=== PATIENT | male | born 1980 | race Two or more races ===

== ENCOUNTER → 2020-05-04 11:29 | Outpatient (BNVA) | payer OTHER, SELFPAY | PROVIDERS: PCP Internal Medicine; Visit Provider Internal Medicine | DX: F11.20 Opioid dependence, uncomplicated (principal) | CPT/HCPCS: 80305; 99212 ==

== ENCOUNTER → 2020-05-11 15:03 | Outpatient (BNVA) | payer OTHER, SELFPAY | PROVIDERS: PCP Internal Medicine; Visit Provider Internal Medicine | DX: F11.99 Opioid use, unspecified with unspecified opioid-induced disorder (principal); Z88.8 Allergy status to other drugs, medicaments and biological substances; Z79.899 Other long term (current) drug therapy | CPT/HCPCS: 80305; 99212 ==

== ENCOUNTER 2020-05-14 08:27 | Inpatient (IN) | payer OTHER, SELFPAY ==
[2020-05-14] VITALS (9 sets, daily range): BP systolic 114–156; BP diastolic 66–104; PULSE 79–120; RESP 18–40; TEMP 36.2–36.6; O2SAT 76–100; BMI 42.0
[2020-05-14] MEDS: Ketamine HCl 500 MG/5 ML VIAL 100 MG IM (08:30)
--- NOTE | 2020-05-14 08:33 | ECG_ITS ---
Test Reason : SOB Blood Pressure : / mmHG Vent. Rate : 113 BPM Atrial Rate : 113 BPM P-R Int : 128 ms QRS Dur : 090 ms QT Int : 356 ms P-R-T Axes : 076 064 062 degrees QTc Int : 488 ms Sinus tachycardia Otherwise normal ECG When compared with ECG of 11-JUL-2019 11:28, Heart rate has increased Referred By: Tianna Curtis Electronically Signed By:DONAVAN FARIA MD
--- NOTE | 2020-05-14 08:33 | ED.ASTHMA ---
HPI - Asthma General Chief Complaint: Asthma Stated Complaint: sob Time Seen by Provider: 05/14/20 08:33 Source: patient and EMS Mode of arrival: EMS Limitations: other (respiratory distress) History of Present Illness HPI Narrative: EMS notes sats in 70s on CPAP agitated and cannot tolerate CPAP MD complaint: asthma attack Onset (ago): unknown Severity: severe Context: none known Associated symptoms: dry cough Asthma History: adult onset and history of frequent attacks Treatments Prior to Arrival: CPAP Related Data Home Medications Medication Instructions Recorded Confirmed buprenorphine 8 mg-naloxone 2 mg 2 film SUBLINGUAL DAILY 05/11/20 05/14/20 sublingual film benralizumab [Fasenra] 30 mg SUBCUT Q4W 05/14/20 05/14/20 fluticasone propion-salmeterol 1 inh PO BID 05/14/20 05/14/20 ipratropium-albuterol 1 vial INHALATION Q6H PRN 05/14/20 05/14/20 montelukast 1 tab PO DAILY 05/14/20 05/14/20 Previous Rx's Medication Instructions Recorded albuterol sulfate 90 mcg/actuation 2 puff INHALATION Q6H PRN #8.5 g 04/27/20 aerosol inhaler buprenorphine 8 mg-naloxone 2 mg 2 film SUBLINGUAL DAILY 14 Days 05/11/20 sublingual film #28 ea Allergies Allergy/AdvReac Type Severity Reaction Status Date / Time metoclopramide [Reglan] Allergy Unknown Verified 02/18/20 00:00 metronidazole [From FLAGYL] Allergy Unknown UNKNOWN Unverified 03/25/20 17:21 haloperidol [From HALDOL] AdvReac Severe Tardive Unverified 03/25/20 17:21 Diskinesia prochlorperazine AdvReac Severe Tardive Unverified 03/25/20 17:21 [From COMPAZINE] Diskinesia Compazine Allergy Unknown Uncoded 01/06/20 00:00 From REGLAN AdvReac Intermediate ANXIETY Uncoded 03/25/20 17:21 Review of Systems Review of Systems: ROS unable to be obtained due to significant resp distress PMFSH Past Medical History Medical History (Updated 05/14/20 @ 11:21 by Tianna Curtis DO) Asthma GERD (gastroesophageal reflux disease) HTN (hypertension) Opioid use disorder Pancreatitis Social History Social History (Updated 05/14/20 @ 08:38 by Tianna Curtis DO) Alcohol intake: never Smoking Status: Former smoker Use of substances other than those prescribed or required for medical reasons: Unknown Advance Directives: No Advance Directives Information Provided: No Physical Exam Vital Signs: Vital Signs: Last Vital Signs Pulse 109 H 05/14/20 10:14 Resp 20 05/14/20 10:14 BP 156/99 H 05/14/20 10:14 Pulse Ox 100 05/14/20 10:14 Body Mass Index 42.0 Appearance: Alert. oriented x 2 severe acute distress. Eyes: Pupils equal, round and reactive to light. ENT: Pharynx normal. Neck: Normal inspection. Neck supple. CVS: tachycardic heart rate and rhythm. Pulses normal. Respiratory: severe respiratory distress. Breath sounds decreased sig exp and insp wheezes Abdomen: Soft and nontender. Skin: Skin warm and diaphoretic. mild central cyanosis (lips) Normal skin turgor. Extremities: No lower extremity edema. No calf ttp Neuro: Oriented X 2. No motor deficit. No sensory deficit. Course Course Course Narrative: 98% on bipap at this time - overally work of breathing improved, tolerating bipap WBC chronically elevated and not due to infection or severe sepsis patient doing well on bipap, will repeat hour long 10mg neb, mentation good at this time, 98% on Bipap, will repeat VBG off bipap at this time RAN due to dehydration and not infection or severe sepsis Procedures EJ/Peripheral Line Neck L: Time Out Performed: Yes Skin Cleansed in Sterile Fashion: Yes Size (gauge): 20 IV Secured and Dressing Applied: Yes Patient Tolerated Procedure: well MDM - Asthma MDM Narrative Medical decision making narrative: 39 yo male with sig history of asthma here in sig respiratory distress - agitated on arrival and 75% on EMS CPAP - given IM ketamine, placed on bipap, hour long 10mg neb, IV steroids/magnesium, no reported infections, bipap used for asthma and not infection or severe sepsis. Lab Data Result diagrams: 05/14/20 08:38 05/14/20 09:37 Labs: Lab Results 05/14/20 05/14/20 05/14/20 Range/Units 08:38 08:38 08:38 WBC 16.2 H (4.8-10.8) X10*3/uL RBC 4.91 (4.60-5.80) X10*6/uL Hgb 14.1 (14.0-18.0) g/dl Hct 45.9 (42-52) % MCV 93.5 (80-98) fL MCH 28.7 (27.0-33.0) pg MCHC 30.7 L (31.0-36.0) g/dl RDW 13.8 (11.0-16.0) % Plt Count 454 H (160-400) X10*3/uL MPV 9.6 (9.4-12.4) fL Immature Gran % (Auto) Cancelled Neut % (Auto) Cancelled Lymph % (Auto) Cancelled [place] % (Auto) Cancelled Eos % (Auto) Cancelled Baso % (Auto) Cancelled Lymph # (Auto) Cancelled [place] # (Auto) Cancelled Eos # (Auto) Cancelled Baso # (Auto) Cancelled Abs Immat Gran (auto) Cancelled Absolute Neuts (auto) Cancelled Absolute Nucleated RBC 0.000 (0.0-0.012) X10*3/uL Nucleated RBC % (auto) 0.0 (0.0-0.2) /100WBC Neutrophils % (Manual) 48 (45-73) % Band Neutrophils % 1 L (3-5) % Lymphocytes % (Manual) 37 (20-40) % Atypical Lymphs % (Man) 2 (0-6) % Monocytes % (Manual) 7 (2-11) % Eosinophils % (Manual) 4 (0-4) % Basophils % (Manual) 1 (0-1) % Abs Neuts (Manual) 7.9 (2.2-7.9) X10*3/uL Lymphocytes # (Manual) 6.0 H (0.6-4.8) X10*3/uL Atyp Lymphs # (Manual) 0.3 x10*3/uL Monocytes # (Manual) 1.1 (0.0-1.2) X10*3/uL Eosinophils # (Manual) 0.6 (0.0-0.8) X10*3/UL Basophils # (Manual) 0.2 (0.0-0.3) X10*3/uL Platelet Estimate SLIGHTLY INCREASED (NORMAL) Plt Morphology Comment NORMAL RBC Morphology NORMAL Smear Tech's Comments MANUAL DIFF Hold Blue Top SEE NOTE VBG pH (7.32-7.43) VBG pCO2 mmhg VBG Oxygen Liters/Min VBG pO2 mmhg VBG HCO3 mmol/L VBG O2 Saturation % VBG Base Excess mmol/L Sodium Cancelled Potassium Cancelled Chloride Cancelled Carbon Dioxide Cancelled Anion Gap Cancelled BUN Cancelled Creatinine Cancelled Estim Creat Clear Calc Cancelled Estimated GFR Cancelled Random Glucose Cancelled Calcium Cancelled Magnesium Cancelled Total Bilirubin Cancelled Direct Bilirubin Cancelled AST Cancelled ALT Cancelled Alkaline Phosphatase Cancelled Total Protein Cancelled Albumin Cancelled Coronavirus (PCR) (Negative) 05/14/20 05/14/20 05/14/20 Range/Units 08:38 08:43 09:37 WBC (4.8-10.8) X10*3/uL RBC (4.60-5.80) X10*6/uL Hgb (14.0-18.0) g/dl Hct (42-52) % MCV (80-98) fL MCH (27.0-33.0) pg MCHC (31.0-36.0) g/dl RDW (11.0-16.0) % Plt Count (160-400) X10*3/uL MPV (9.4-12.4) fL Immature Gran % (Auto) Neut % (Auto) Lymph % (Auto) [place] % (Auto) Eos % (Auto) Baso % (Auto) Lymph # (Auto) [place] # (Auto) Eos # (Auto) Baso # (Auto) Abs Immat Gran (auto) Absolute Neuts (auto) Absolute Nucleated RBC (0.0-0.012) X10*3/uL Nucleated RBC % (auto) (0.0-0.2) /100WBC Neutrophils % (Manual) (45-73) % Band Neutrophils % (3-5) % Lymphocytes % (Manual) (20-40) % Atypical Lymphs % (Man) (0-6) % Monocytes % (Manual) (2-11) % Eosinophils % (Manual) (0-4) % Basophils % (Manual) (0-1) % Abs Neuts (Manual) (2.2-7.9) X10*3/uL Lymphocytes # (Manual) (0.6-4.8) X10*3/uL Atyp Lymphs # (Manual) x10*3/uL Monocytes # (Manual) (0.0-1.2) X10*3/uL Eosinophils # (Manual) (0.0-0.8) X10*3/UL Basophils # (Manual) (0.0-0.3) X10*3/uL Platelet Estimate (NORMAL) Plt Morphology Comment RBC Morphology Smear Tech's Comments Hold Blue Top VBG pH 7.21 L (7.32-7.43) VBG pCO2 79 mmhg VBG Oxygen Liters/Min Not Reportable VBG pO2 143 mmhg VBG HCO3 31 mmol/L VBG O2 Saturation 98.5 % VBG Base Excess 0.5 mmol/L Sodium 143 Potassium 3.9 Chloride 104 Carbon Dioxide 31 H Anion Gap 12 BUN 18 H Creatinine 1.42 H Estim Creat Clear Calc 96.7 Estimated GFR 56 Random Glucose 140 H Calcium 8.1 L Magnesium 5.8 H* Total Bilirubin < 0.2 Direct Bilirubin < 0.2 AST 23 ALT 20 Alkaline Phosphatase 89 Total Protein 7.2 Albumin 3.9 Coronavirus (PCR) NEGATIVE (Negative) ECG Data Attestation: I personally reviewed and interpreted this ECG as follows: ECG interpretation date: 05/14/20 ECG interpretation time: 09:09 Interpretation: Rate: 113 Rhythm: sinus tachycardia [place]: normal Normal P waves. Normal JEANNE. Normal QRS complex. ST T wave : normal qTC: normal prior studies: artifact no acute ischemia The study has been interpreted contemporaneously by me. . Critical Care Time Critical Care Time Critical Care Time: Yes Total Critical Care Time: 90 Attestation: 2 hour long nebs, bipap, EJ line, IM ketamine for bronchodilation/bipap I attest to this time spent taking care of the patient Discharge Plan Discharge Clinical Impression: Asthma, Respiratory failure, Acute renal insufficiency Patient Disposition: Admitted As Inpatient Prescriptions: No Action albuterol sulfate 90 mcg/actuation HFA aerosol inhaler 2 puff inhalation Q6H PRN (Reason: shortness of breath or wheezing) Qty: 8.5 RF: 5 ipratropium-albuterol 0.5 mg-3 mg(2.5 mg base)/3 mL solution for nebulization 1 vial inhalation Q6H PRN (Reason: Shortness Of Breath) RF: 0 montelukast 10 mg tablet 1 tab PO DAILY RF: 0 fluticasone propion-salmeterol 113-14 mcg/actuation aerosol powdr breath activated 1 inh PO BID RF: 0 Fasenra 30 mg/mL syringe 30 mg subcut Q4W RF: 0 buprenorphine-naloxone [Suboxone] 8-2 mg film 2 film sublingual DAILY RF: 0 buprenorphine-naloxone [Suboxone] 8-2 mg film 2 film sublingual DAILY 14 Days Qty: 28 RF: 0
--- NOTE | 2020-05-14 08:34 | XR_ITS ---
EXAMINATION: XR CHEST CLINICAL INFORMATION: Dyspnea. COMPARISON: 07/11/2019 chest radiograph. TECHNIQUE: Frontal view of the chest was obtained. FINDINGS: The lungs are clear. The heart and mediastinal structures are unremarkable. XR/XR chest 1V IMPRESSION: No acute cardiopulmonary process.
[2020-05-14] MEDS: methylPREDNISolone Sod Succ/PF 125 MG/2 ML VIAL IVPUSH (08:35)
[2020-05-14] MEDS: Magnesium Sulfate/H2O 2 GM/50 ML PIGGYBACK IV (08:36)
[2020-05-14 08:47] LABS: Hematocrit 45.9 % (42-52); Hemoglobin 14.1 g/dl (14.0-18.0); Mean Corpuscular HGB Conc 30.7 g/dl (31.0-36.0); Mean Corpuscular Hemoglobin 28.7 pg (27.0-33.0); Mean Corpuscular Volume 93.5 fL (80-98); Mean Platelet Volume 9.6 fL (9.4-12.4); Platelet Count 454 X10*3/uL (160-400); Red Blood Count 4.91 X10*6/uL (4.60-5.80); Red Cell Distribution Width 13.8 % (11.0-16.0); White Blood Count 16.2 X10*3/uL (4.8-10.8)
--- NOTE | 2020-05-14 08:47 | PC.NURSE ---
iv placed by md harris. rt remains at bedside for treatment in bipap. o2 decresed to 50% pt tolerating bipap well.
[2020-05-14] MEDS: Albuterol Sulfate (0.083%) 2.5 MG/3 ML VIAL.NEB 10 MG INHALE ×2 (08:48→09:51)
[2020-05-14 08:53] LABS: Base Excess VBG 0.5 mmol/L; HCO3 VBG 31 mmol/L; PCO2 VBG 79 mmhg; PO2 VBG 143 mmhg; pH VBG 7.21 (7.32-7.43)
[2020-05-14 08:54] LABS: Blood Gas Serial # 5396; Oxygen Saturation VBG 98.5 %
[2020-05-14 09:12] LABS: SLIDE REVIEW MANUAL DIFF
[2020-05-14 09:16] LABS: Atypical Lymph Absolute Manual 0.3 x10*3/uL; Atypical Lymphs Percent Manual 2 % (0-6); Band Neutrophils Percent 1 % (3-5); Basophils Abs Manual 0.2 X10*3/uL (0.0-0.3); Basophils Percent Manual 1 % (0-1); Eosinophils Absolute Manual 0.6 X10*3/UL (0.0-0.8); Eosinophils Percent Manual 4 % (0-4); Lymphocytes Percent Manual 37 % (20-40); Monocytes Absolute Manual 1.1 X10*3/uL (0.0-1.2); Monocytes Percent Manual 7 % (2-11); Neutrophils Absolute Manual 7.9 X10*3/uL (2.2-7.9); Neutrophils Percent Manual 48 % (45-73)
[2020-05-14 09:18] LABS: Platelet Estimate SLIGHTLY INCREASED (NORMAL); Platelet Morphology Comment NORMAL; RBC Morphology NORMAL
--- NOTE | 2020-05-14 09:22 | PC.NURSE ---
recollect orders placed per lab
[2020-05-14 10:24] LABS: SARS COV2 PCR INHOUSE NEGATIVE (Negative)
[2020-05-14 10:46] LABS: Alanine Aminotransferase 20 U/L (0-40); Albumin Level 3.9 g/dL (3.5-5.0); Alkaline Phosphatase 89 U/L (39-117); Anion Gap 12 (12-20); Aspartate Amino Transferase 23 U/L (5-37); Bilirubin Direct < 0.2 mg/dL (0.0-0.5); Bilirubin Total < 0.2 mg/dL (0.0-1.0); Blood Urea Nitrogen 18 mg/dL (9-16); Calcium 8.1 mg/dL (8.4-10.2); Carbon Dioxide 31 mmol/L (22-29); Chloride 104 mmol/L (96-108); Creatinine Clr Calc Pharmacy 96.7; Estimated Glomerular Filt Rate 56; Glucose Random 140 mg/dL (60-115); Magnesium 5.8 mg/dL (1.6-2.6); Potassium 3.9 mmol/l (3.3-5.1); Sodium 143 mmol/L (135-145); Total Protein 7.2 g/dL (6.5-8.0)
[2020-05-14] MEDS: 0.9 % Sodium Chloride 1,000 ML 999 ML IVCONT (10:59)
[2020-05-14] MEDS: Albuterol Sulfate (0.083%) 2.5 MG/3 ML VIAL.NEB INHALE (11:22)
[2020-05-14 12:01] LABS: Base Excess VBG 1.6 mmol/L; HCO3 VBG 28 mmol/L; PCO2 VBG 51 mmhg; PO2 VBG 127 mmhg; pH VBG 7.36 (7.32-7.43)
[2020-05-14 12:02] LABS: Oxygen Saturation VBG 98.5 %
--- NOTE | 2020-05-14 12:23 | PM.IMHP ---
History of Present Illness Date of Service: 05/14/20 Chief Complaint: shortness of breath, respiratory distress a 39 years old male with PMH of asthma, opioid dependence on Suboxone, and anxiety among others who presented to the hospital with shortness of breath and low oxygen level. The patient reported that he has been feeling mildly winded and short of breath for the last 3-5 days prior to admission. He denies any fever, chills congestion but reports dry cough. He has been using his nebulizers for the last week with minimal effect. Last night he went to bed feeling short of breath and tired. He woke up early in the morning he CV stress difficulty breathing. His care EMS for evaluation and the patient was brought to the hospital for further treatment. In the emergency his chest x-ray did not show any acute illness. His oxygen level was found to be low and he was placed on BiPAP as ABG showed significant acidemia and hypercapnia. Repeated ABG showed significant improvement as the patient improved almost back to his baseline. Admitted for further evaluation treatment. Review of Systems Review of Systems: No fever, chills or weakness No chest pain, palpitation Shortness of breath, cough him to, difficulty breathing. No abdominal pain, nausea or vomiting No urinary symptoms No any rash or wounds [facility] Medical History (Updated 05/14/20 @ 12:31 by Taylor Priest MD) Asthma Asthma GERD (gastroesophageal reflux disease) HTN (hypertension) Opioid use disorder Pancreatitis Respiratory failure Social History (Updated 05/14/20 @ 08:38 by Tianna Curtis DO) Alcohol intake: never Smoking Status: Former smoker Use of substances other than those prescribed or required for medical reasons: Unknown Advance Directives: No Advance Directives Information Provided: No Meds Allergies Allergy/AdvReac Type Severity Reaction Status Date / Time metoclopramide [Reglan] Allergy Unknown Verified 02/18/20 00:00 metronidazole [From FLAGYL] Allergy Unknown UNKNOWN Unverified 03/25/20 17:21 haloperidol [From HALDOL] AdvReac Severe Tardive Unverified 03/25/20 17:21 Diskinesia prochlorperazine AdvReac Severe Tardive Unverified 03/25/20 17:21 [From COMPAZINE] Diskinesia Compazine Allergy Unknown Uncoded 01/06/20 00:00 From REGLAN AdvReac Intermediate ANXIETY Uncoded 03/25/20 17:21 Home Medications Medication Instructions Recorded Confirmed Type buprenorphine 8 mg-naloxone 2 mg 2 film SUBLINGUAL DAILY 05/11/20 05/14/20 History sublingual film benralizumab [Fasenra] 30 mg SUBCUT Q4W 05/14/20 05/14/20 History fluticasone propion-salmeterol 1 inh PO BID 05/14/20 05/14/20 History ipratropium-albuterol 1 vial INHALATION Q6H PRN 05/14/20 05/14/20 History montelukast 1 tab PO DAILY 05/14/20 05/14/20 History Physical Exam Vital Signs and Narrative: Vital Signs: Last Vital Signs Temp 97.9 F 05/14/20 11:21 Pulse 95 05/14/20 12:03 Resp 18 05/14/20 12:03 BP 129/104 H 05/14/20 11:21 Pulse Ox 95 05/14/20 12:03 Body Mass Index 42.0 Constitutional : Alert, oriented, not in distress Neck : Normal inspection, Supple Cardiovascular : RRR, S1 S2, no lower extremity edema Respiratory : Good bilateral air entry, no crackles, wheezes or rhonchi Gastrointestinal: soft, lax, Normal bowel sounds, Non tender Skin : Warm/Dry, No rash Neurological : Alert & oriented x3, No focal deficit Results Labs CBC and Chem 7: 05/14/20 08:38 05/14/20 09:37 Labs: Laboratory Results - last 24 hr 05/14/20 05/14/20 05/14/20 08:38 08:38 08:38 MCV 93.5 MCH 28.7 MCHC 30.7 L RDW 13.8 Plt Count 454 H MPV 9.6 Immature Gran % (Auto) Cancelled Neut % (Auto) Cancelled Lymph % (Auto) Cancelled [place] % (Auto) Cancelled Eos % (Auto) Cancelled Baso % (Auto) Cancelled Lymph # (Auto) Cancelled [place] # (Auto) Cancelled Eos # (Auto) Cancelled Baso # (Auto) Cancelled Abs Immat Gran (auto) Cancelled Absolute Neuts (auto) Cancelled Absolute Nucleated RBC 0.000 Nucleated RBC % (auto) 0.0 Neutrophils % (Manual) 48 Band Neutrophils % 1 L Lymphocytes % (Manual) 37 Atypical Lymphs % (Man) 2 Monocytes % (Manual) 7 Eosinophils % (Manual) 4 Basophils % (Manual) 1 Abs Neuts (Manual) 7.9 Lymphocytes # (Manual) 6.0 H Atyp Lymphs # (Manual) 0.3 Monocytes # (Manual) 1.1 Eosinophils # (Manual) 0.6 Basophils # (Manual) 0.2 Platelet Estimate SLIGHTLY INCREASED Plt Morphology Comment NORMAL RBC Morphology NORMAL Smear Tech's Comments MANUAL DIFF Hold Blue Top SEE NOTE ABG pH ABG pCO2 ABG pO2 ABG HCO3 ABG O2 Saturation ABG Base Excess VBG pH VBG pCO2 VBG Oxygen Liters/Min VBG pO2 VBG HCO3 VBG O2 Saturation VBG Base Excess Oxygen Given Anion Gap Cancelled Estim Creat Clear Calc Cancelled Estimated GFR Cancelled Random Glucose Cancelled Calcium Cancelled Magnesium Cancelled Total Bilirubin Cancelled Direct Bilirubin Cancelled AST Cancelled ALT Cancelled Alkaline Phosphatase Cancelled Total Protein Cancelled Albumin Cancelled Coronavirus (PCR) 05/14/20 05/14/20 05/14/20 08:38 08:43 09:37 MCV MCH MCHC RDW Plt Count MPV Immature Gran % (Auto) Neut % (Auto) Lymph % (Auto) [place] % (Auto) Eos % (Auto) Baso % (Auto) Lymph # (Auto) [place] # (Auto) Eos # (Auto) Baso # (Auto) Abs Immat Gran (auto) Absolute Neuts (auto) Absolute Nucleated RBC Nucleated RBC % (auto) Neutrophils % (Manual) Band Neutrophils % Lymphocytes % (Manual) Atypical Lymphs % (Man) Monocytes % (Manual) Eosinophils % (Manual) Basophils % (Manual) Abs Neuts (Manual) Lymphocytes # (Manual) Atyp Lymphs # (Manual) Monocytes # (Manual) Eosinophils # (Manual) Basophils # (Manual) Platelet Estimate Plt Morphology Comment RBC Morphology Smear Tech's Comments Hold Blue Top ABG pH ABG pCO2 ABG pO2 ABG HCO3 ABG O2 Saturation ABG Base Excess VBG pH 7.21 L VBG pCO2 79 VBG Oxygen Liters/Min Not Reportable VBG pO2 143 VBG HCO3 31 VBG O2 Saturation 98.5 VBG Base Excess 0.5 Oxygen Given Anion Gap 12 Estim Creat Clear Calc 96.7 Estimated GFR 56 Random Glucose 140 H Calcium 8.1 L Magnesium 5.8 H* Total Bilirubin < 0.2 Direct Bilirubin < 0.2 AST 23 ALT 20 Alkaline Phosphatase 89 Total Protein 7.2 Albumin 3.9 Coronavirus (PCR) NEGATIVE 05/14/20 05/14/20 11:15 11:44 MCV MCH MCHC RDW Plt Count MPV Immature Gran % (Auto) Neut % (Auto) Lymph % (Auto) [place] % (Auto) Eos % (Auto) Baso % (Auto) Lymph # (Auto) [place] # (Auto) Eos # (Auto) Baso # (Auto) Abs Immat Gran (auto) Absolute Neuts (auto) Absolute Nucleated RBC Nucleated RBC % (auto) Neutrophils % (Manual) Band Neutrophils % Lymphocytes % (Manual) Atypical Lymphs % (Man) Monocytes % (Manual) Eosinophils % (Manual) Basophils % (Manual) Abs Neuts (Manual) Lymphocytes # (Manual) Atyp Lymphs # (Manual) Monocytes # (Manual) Eosinophils # (Manual) Basophils # (Manual) Platelet Estimate Plt Morphology Comment RBC Morphology Smear Tech's Comments Hold Blue Top ABG pH Cancelled ABG pCO2 Cancelled ABG pO2 Cancelled ABG HCO3 Cancelled ABG O2 Saturation Cancelled ABG Base Excess Cancelled VBG pH 7.36 VBG pCO2 51 VBG Oxygen Liters/Min Not Reportable VBG pO2 127 VBG HCO3 28 VBG O2 Saturation 98.5 VBG Base Excess 1.6 Oxygen Given Cancelled Anion Gap Estim Creat Clear Calc Estimated GFR Random Glucose Calcium Magnesium Total Bilirubin Direct Bilirubin AST ALT Alkaline Phosphatase Total Protein Albumin Coronavirus (PCR) Imaging Radiologist's Impressions: Impressions Chest X-Ray 05/14/20 08:34 IMPRESSION: No acute cardiopulmonary process. Assessment and Plan (1) Asthma exacerbation: Status: Acute (2) Acute respiratory failure with hypoxia: Status: Acute (3) Hypermagnesemia: Status: Acute (4) Opioid use disorder: Status: Acute (5) Acute renal insufficiency: Status: Acute a 39 years old male with PMH of asthma, opioid dependence on Suboxone, and anxiety among others who presented to the hospital with shortness of breath and low oxygen level. acute hypoxic hypercapnic respiratory failure Asthma exacerbation CXR negative for any acute infiltrate ABG showed significant hypercapnia with acidemia Improved with BiPAP Continue steroid IV Continue nebulizers ATC and p.r.n. O2 supplement as needed Tested negative for COVID Acute kidney injury Creatinine of 1.46 from baseline of 0.9 Could be secondary to medication, dehydration, respiratory distress To give gentle hydration and monitor urine output Hypermagnesemia Likely a result of IV medications Continue to monitor Opioid use disorder continue Suboxone DVT PPX A early ambulation
--- NOTE | 2020-05-14 14:00 | PC.NURSE ---
called to [facility] – [place]
--- NOTE | 2020-05-14 14:22 | PC.NURSE ---
report given to [facility] [place]
[2020-05-14] MEDS: Albuterol/Iprat 2.5/0.5MG 3 ML AMPUL.NEB INHALE ×2 (15:14→21:38)
[2020-05-14] MEDS: 0.9 % Sodium Chloride Flush 3 ML SYRINGE IVFLUSH ×2 (16:56→20:07)
[2020-05-14] MEDS: Buprenorphine/Naloxone 8/2 mg FILM 2 FILM SUBLINGUAL (16:56)
[2020-05-14] MEDS: Flu Vacc QS2020-21(6mos up)/PF 0.5 ML SYRINGE IM (19:53)
[2020-05-15] VITALS: BP 120/77; PULSE 96; RESP 18; TEMP 36.4; O2SAT 93
[2020-05-15] MEDS: LORazepam 2 MG/ML VIAL 1 MG IVPUSH (00:13)
[2020-05-15] MEDS: Albuterol Sulfate (0.083%) 2.5 MG/3 ML VIAL.NEB INHALE (03:59)
[2020-05-15 04:00] VITALS: BP 144/83; PULSE 91; RESP 18; TEMP 36.4; O2SAT 96
[2020-05-15 07:19] LABS: Basophils Percent Auto 0.2 % (0-2); Hematocrit 40.2 % (42-52); Hemoglobin 12.7 g/dl (14.0-18.0); Imm Gran Abs Auto 0.24 X10*3/uL (0.00-0.03); Lymphocytes Absolute Auto 0.7 X10*3/uL (1.2-4.9); Lymphocytes Percent Auto 3.1 % (20-40); MANUAL DIFF FLAG SCAN; Mean Corpuscular HGB Conc 31.6 g/dl (31.0-36.0); Mean Corpuscular Hemoglobin 28.7 pg (27.0-33.0); Mean Platelet Volume 10.2 fL (9.4-12.4); Monocytes Absolute Auto 1.4 X10*3/uL (0.1-1.2); Monocytes Percent Auto 5.6 % (2-11); Neutrophils Absolute Auto 21.7 X10*3/uL (2.0-8.3); Neutrophils Percent Auto 90.1 % (45-73); Platelet Count 350 X10*3/uL (160-400); Red Blood Count 4.42 X10*6/uL (4.60-5.80); SCAN SMEAR FLAG 1; White Blood Count 24.1 X10*3/uL (4.8-10.8)
[2020-05-15 07:21] VITALS: BP 121/61; PULSE 86; RESP 18; TEMP 36.3; O2SAT 93
[2020-05-15 07:44] LABS: Anion Gap 12 (12-20); Blood Urea Nitrogen 15 mg/dL (9-16); Calcium 8.1 mg/dL (8.4-10.2); Carbon Dioxide 27 mmol/L (22-29); Chloride 104 mmol/L (96-108); Creatinine Clr Calc Pharmacy 156.1; Estimated Glomerular Filt Rate > 60; Glucose Random 107 mg/dL (60-115); Potassium 4.4 mmol/l (3.3-5.1); Sodium 139 mmol/L (135-145)
[2020-05-15 08:05] LABS: SLIDE REVIEW VERIFIED
[2020-05-15 08:12] LABS: Magnesium 2.1 mg/dL (1.6-2.6)
[2020-05-15] MEDS: Montelukast Sodium 10 MG TABLET PO (08:14)
[2020-05-15] MEDS: 0.9 % Sodium Chloride Flush 3 ML SYRINGE IVFLUSH (08:14)
[2020-05-15] MEDS: Buprenorphine/Naloxone 8/2 mg FILM 2 FILM SUBLINGUAL (08:14)
[2020-05-15] MEDS: Albuterol/Iprat 2.5/0.5MG 3 ML AMPUL.NEB INHALE ×2 (08:54→11:07)
--- NOTE | 2020-05-15 09:21 | MHC.CM.PN ---
Pt reports he resides with a disabled individual and is their [employer]. Pt reports he does not use an assistive device but does have a nebulizer. Pt reports he got the nebulizer at [facility] but it only worked for two weeks. Pt reports it makes noise but nothing comes out. Pt reports his PCP is Maxx Roberto and says he has an up to date HCP that should be on file. current DC plan is home with no services Pt to self arrange transport
[2020-05-15 11:05] VITALS: BP 141/71; PULSE 88; RESP 18; TEMP 36.6; O2SAT 94
--- NOTE | 2020-05-15 11:29 | MHC.CM.PN ---
Pt being discharged with no services pt can self arrange transport
--- NOTE | 2020-05-15 16:58 | PM.DS ---
DS: Providers Provider Date of admission: 05/14/20 12:20 Primary care physician: Unknown Physician DS: Diagnosis Discharge Diagnosis (1) Asthma exacerbation: Status: Acute (2) Acute respiratory failure with hypoxia: Status: Acute (3) Hypermagnesemia: Status: Acute (4) Opioid use disorder: Status: Acute (5) Acute renal insufficiency: Status: Acute DS: Summary Hospital Course Hospital Course: Admission note HPI a 39 years old male with PMH of asthma, opioid dependence on Suboxone, and anxiety among others who presented to the hospital with shortness of breath and low oxygen level. The patient reported that he has been feeling mildly winded and short of breath for the last 3-5 days prior to admission. He denies any fever, chills congestion but reports dry cough. He has been using his nebulizers for the last week with minimal effect. Last night he went to bed feeling short of breath and tired. He woke up early in the morning he CV stress difficulty breathing. His care EMS for evaluation and the patient was brought to the hospital for further treatment. In the emergency his chest x-ray did not show any acute illness. His oxygen level was found to be low and he was placed on BiPAP as ABG showed significant acidemia and hypercapnia. Repeated ABG showed significant improvement as the patient improved almost back to his baseline. Admitted for further evaluation treatment. Hospital course The patient admitted for acute hypoxic and hypercapnic respiratory failure secondary to asthma exacerbation . He was treated with BiPAP in the emergency with good response with repeated ABG showing clearance of hypercapnia and hypoxia. He was admitted to the hospital and treated with IV steroids, nebulizers and O2 supplement. He tested negative for COVID-19. His respiratory status improved significantly during the hospital stay and was able to ambulate freely on room air in the next morning. He has to be discharged home. He was discharged on his home medications, prednisone and cortisone inhaler. He was noted to have acute kidney injury as well with creatinine of almost 1.5 from baseline of 0.9. He was treated with gentle hydration with good response as kidney function improved back to baseline. Noticed to have hypermagnesemia of 5.5 which is likely secondary to medications. Repeated next morning Time Spent with Patient Time attestation: Total time spent providing and/or coordinating discharge services: Physical Exam Vital Signs: Vital Signs: Last Vital Signs Temp 97.8 F 05/15/20 11:05 Pulse 88 05/15/20 11:05 Resp 18 05/15/20 11:05 BP 141/71 H 05/15/20 11:05 Pulse Ox 94 05/15/20 11:05 Body Mass Index 42.0 Constitutional : Alert, oriented, not in distress Neck : Normal inspection, Supple Cardiovascular : RRR, S1 S2, no lower extremity edema Respiratory : Good bilateral air entry, no crackles, scattered wheezes , no rhonchi Gastrointestinal: soft, lax, Normal bowel sounds, Non tender Skin : Warm/Dry, No rash Neurological : Alert & oriented x3, No focal deficit DS: Data Data Completed and Pending Labs on day of discharge: 05/14/20 08:33 ECG 12 lead EKG Stat EKG Documentation DIRECTED Consult Rx Perform Med Rec 1 each MISCELLANE ONCE PRN Magnesium Sulfate/H2O 2 gm in 50 ml IV ONCE methylPREDNISolone Sod Succ/PF [SOLU-MedroL] 125 mg IVPUSH ONCE ONE 05/14/20 08:34 XR chest 1V Stat Ketamine HCl [Ketalar] 100 mg IM ONCE ONE 05/14/20 08:35 Albuterol Sulfate (0.083%) [Ventolin (0.083%)] 10 mg INHALE ONCE ONE 05/14/20 08:38 Complete Blood Count Man Dif Stat Hold Lt Blue - Possible Coag Stat SLIDE REVIEW Stat Venous Blood Gas Stat Albuterol/Iprat 2.5/0.5MG 3 ML [Duoneb] 3 ml INHALE .STK-MED ONE 05/14/20 08:43 SARS COV2 PCR INHOUSE Stat 05/14/20 09:22 Albuterol Sulfate (0.083%) [Ventolin (0.083%)] 10 mg INHALE ONCE ONE 05/14/20 09:37 BMP [Basic Metabolic Panel] Stat Liver Panel Stat Magnesium Stat 05/14/20 09:43 Magnesium Sulfate/H2O 2 gm IV .STK-MED ONE methylPREDNISolone Sod Succ/PF [SOLU-MedroL] 125 mg .ROUTE .STK-MED ONE 05/14/20 10:49 ABG (RT) ONCE 05/14/20 11:00 0.9 % Sodium Chloride [Ns] 1,000 ml IVCONT 999 mls/hr 05/14/20 11:18 Albuterol Sulfate (0.083%) [Ventolin (0.083%)] 2.5 mg INHALE ONCE ONE 05/14/20 11:44 Venous Blood Gas Stat 05/14/20 12:02 Code Status Routine Transfer Order Routine 05/14/20 13:25 Ketamine HCl/NS 100 mg IVPUSH .STK-MED ONE 05/14/20 14:02 Acetaminophen [Tylenol] 650 mg PO Q6H PRN Albuterol Sulfate (0.083%) [Ventolin (0.083%)] 2.5 mg INHALE Q2H PRN Buprenorphine/Naloxone 8/2 mg [Suboxone 8/2 mg] 2 film SUBLINGUAL DAILY 05/14/20 14:02 Ambulate QSHIFT WHILE AWAKE Cont. Telemetry w/Vital Sign limit Q4HR IV insert/maintain Q4HR Intake and Output QSHIFTE Pulse Oximetry Q4HR Supplemental oxygen titration NOW Vital Signs Q4HR 05/14/20 14:41 Transfer Order Routine 05/14/20 16:00 0.9 % Sodium Chloride Flush [NS Flush] 3 ml IVFLUSH QSHIFT Albuterol/Iprat 2.5/0.5MG 3 ML [Duoneb] 3 ml INHALE RQ4H WHILE AWAKE 05/14/20 18:33 Flu Vacc [id number](6mos up)/PF [Fluarix Quad [id number]] 0.5 ml IM .ONCE ONE 05/14/20 21:00 methylPREDNISolone Sod Succ/PF [SOLU-MedroL] 40 mg IVPUSH TID 05/14/20 23:51 LORazepam [Ativan] 1 mg IVPUSH ONCE ONE 05/15/20 06:50 Basic Metabolic Panel DAILY@0600 Complete Blood Count Auto Diff DAILY@0600 Magnesium Routine SLIDE REVIEW Routine 05/15/20 07:43 Add Laboratory Test Urgent 05/15/20 09:00 Montelukast Sodium [Singulair] 10 mg PO DAILY Laboratory Last Values WBC 24.1 X10*3/uL (4.8-10.8) H 05/15/20 06:50 RBC 4.42 X10*6/uL (4.60-5.80) L 05/15/20 06:50 Hgb 12.7 g/dl (14.0-18.0) L 05/15/20 06:50 Hct 40.2 % (42-52) L 05/15/20 06:50 MCV 91.0 fL (80-98) 05/15/20 06:50 MCH 28.7 pg (27.0-33.0) 05/15/20 06:50 MCHC 31.6 g/dl (31.0-36.0) 05/15/20 06:50 RDW 14.0 % (11.0-16.0) 05/15/20 06:50 Plt Count 350 X10*3/uL (160-400) 05/15/20 06:50 MPV 10.2 fL (9.4-12.4) 05/15/20 06:50 Immature Gran % (Auto) 1.0 % (0.0-0.4) H 05/15/20 06:50 Neut % (Auto) 90.1 % (45-73) H 05/15/20 06:50 Lymph % (Auto) 3.1 % (20-40) L 05/15/20 06:50 [place] % (Auto) 5.6 % (2-11) 05/15/20 06:50 Eos % (Auto) 0.0 % (0-4) 05/15/20 06:50 Baso % (Auto) 0.2 % (0-2) 05/15/20 06:50 Lymph # (Auto) 0.7 X10*3/uL (1.2-4.9) L 05/15/20 06:50 [place] # (Auto) 1.4 X10*3/uL (0.1-1.2) H 05/15/20 06:50 Eos # (Auto) 0.0 X10*3/uL (0.0-0.4) 05/15/20 06:50 Baso # (Auto) 0.0 X10*3/uL (0.0-0.2) 05/15/20 06:50 Abs Immat Gran (auto) 0.24 X10*3/uL (0.00-0.03) H 05/15/20 06:50 Absolute Neuts (auto) 21.7 X10*3/uL (2.0-8.3) H 05/15/20 06:50 Absolute Nucleated RBC 0.000 X10*3/uL (0.0-0.012) 05/15/20 06:50 Nucleated RBC % (auto) 0.0 /100WBC (0.0-0.2) 05/15/20 06:50 Neutrophils % (Manual) 48 % (45-73) 05/14/20 08:38 Band Neutrophils % 1 % (3-5) L 05/14/20 08:38 Lymphocytes % (Manual) 37 % (20-40) 05/14/20 08:38 Atypical Lymphs % (Man) 2 % (0-6) 05/14/20 08:38 Monocytes % (Manual) 7 % (2-11) 05/14/20 08:38 Eosinophils % (Manual) 4 % (0-4) 05/14/20 08:38 Basophils % (Manual) 1 % (0-1) 05/14/20 08:38 Abs Neuts (Manual) 7.9 X10*3/uL (2.2-7.9) 05/14/20 08:38 Lymphocytes # (Manual) 6.0 X10*3/uL (0.6-4.8) H 05/14/20 08:38 Atyp Lymphs # (Manual) 0.3 x10*3/uL 05/14/20 08:38 Monocytes # (Manual) 1.1 X10*3/uL (0.0-1.2) 05/14/20 08:38 Eosinophils # (Manual) 0.6 X10*3/UL (0.0-0.8) 05/14/20 08:38 Basophils # (Manual) 0.2 X10*3/uL (0.0-0.3) 05/14/20 08:38 Platelet Estimate SLIGHTLY INCREASED (NORMAL) 05/14/20 08:38 Plt Morphology Comment NORMAL 05/14/20 08:38 RBC Morphology NORMAL 05/14/20 08:38 Smear Tech's Comments VERIFIED 05/15/20 06:50 Hold Blue Top SEE NOTE 05/14/20 08:38 ABG pH Cancelled 05/14/20 11:15 ABG pCO2 Cancelled 05/14/20 11:15 ABG pO2 Cancelled 05/14/20 11:15 ABG HCO3 Cancelled 05/14/20 11:15 ABG O2 Saturation Cancelled 05/14/20 11:15 ABG Base Excess Cancelled 05/14/20 11:15 VBG pH 7.36 (7.32-7.43) 05/14/20 11:44 VBG pCO2 51 mmhg 05/14/20 11:44 VBG Oxygen Liters/Min Not Reportable 05/14/20 11:44 VBG pO2 127 mmhg 05/14/20 11:44 VBG HCO3 28 mmol/L 05/14/20 11:44 VBG O2 Saturation 98.5 % 05/14/20 11:44 VBG Base Excess 1.6 mmol/L 05/14/20 11:44 Oxygen Given Cancelled 05/14/20 11:15 Sodium 139 mmol/L (135-145) 05/15/20 06:50 Potassium 4.4 mmol/l (3.3-5.1) 05/15/20 06:50 Chloride 104 mmol/L (96-108) 05/15/20 06:50 Carbon Dioxide 27 mmol/L (22-29) 05/15/20 06:50 Anion Gap 12 (12-20) 05/15/20 06:50 BUN 15 mg/dL (9-16) 05/15/20 06:50 Creatinine 0.88 mg/dL (0.5-1.4) 05/15/20 06:50 Estim Creat Clear Calc 156.1 05/15/20 06:50 Estimated GFR > 60 05/15/20 06:50 Random Glucose 107 mg/dL (60-115) 05/15/20 06:50 Calcium 8.1 mg/dL (8.4-10.2) L 05/15/20 06:50 Magnesium 2.1 mg/dL (1.6-2.6) 05/15/20 06:50 Total Bilirubin < 0.2 mg/dL (0.0-1.0) 05/14/20 09:37 Direct Bilirubin < 0.2 mg/dL (0.0-0.5) 05/14/20 09:37 AST 23 U/L (5-37) 05/14/20 09:37 ALT 20 U/L (0-40) 05/14/20 09:37 Alkaline Phosphatase 89 U/L (39-117) 05/14/20 09:37 Total Protein 7.2 g/dL (6.5-8.0) 05/14/20 09:37 Albumin 3.9 g/dL (3.5-5.0) 05/14/20 09:37 Coronavirus (PCR) NEGATIVE (Negative) 05/14/20 08:43 Discharge Plan Discharge Patient Disposition: Home, Self-Care Referrals: Physician,Unknown [Primary Care Provider] - Discharge Medications: New prednisone 20 mg tablet 40 mg PO DAILY Qty: 8 RF: 0 Flovent Diskus 100 mcg/actuation blister with device 1 inh inhalation BID Qty: 60 RF: 0 Continued albuterol sulfate 90 mcg/actuation HFA aerosol inhaler 2 puff inhalation Q6H PRN (Reason: shortness of breath or wheezing) Qty: 8.5 RF: 5 ipratropium-albuterol 0.5 mg-3 mg(2.5 mg base)/3 mL solution for nebulization 1 vial inhalation Q6H PRN (Reason: Shortness Of Breath) RF: 0 montelukast 10 mg tablet 1 tab PO DAILY RF: 0 fluticasone propion-salmeterol 113-14 mcg/actuation aerosol powdr breath activated 1 inh PO BID RF: 0 Fasenra 30 mg/mL syringe 30 mg subcut Q4W RF: 0 buprenorphine-naloxone [Suboxone] 8-2 mg film 2 film sublingual DAILY RF: 0 buprenorphine-naloxone [Suboxone] 8-2 mg film 2 film sublingual DAILY 14 Days Qty: 28 RF: 0 Discharge Orders: Discharge Order (Routine); Ordered 05/15/20 Ordered By: Taylor Priest Diet: advance to your usual diet Activity on Discharge: As tolerated Discharge Date/Time: 05/15/20 12:10 Visit Report Forms: Patient Portal Discharge page Care Plan Goals: See below Health Concerns: CVL see below Plan of Treatment: You presented to the hospital the th with difficulty breathing as a result of asthma exacerbation the. Treated with BiPAP the, oxygen supplement, nebulizers and steroids with good response. You improved significantly well with treatment in feels back to baseline. To start steroid inhaler twice Daily Continue prednisone for the next 4 days Continue home medications To follow-up with PCP for an outpatient evaluation by sleep study
== END 2020-05-15 12:10 | disposition home or self-care (01) | DRG 141 ==
LOC: HO.ED 11:21 → HO.IMC 13:43 → HO.S3 14:47
PROVIDERS: Admitting Provider Student in an Organized Health Care Education/Training Program; Emergency Provider Emergency Medicine; Visit Provider Student in an Organized Health Care Education/Training Program
DX: J45.901 Unspecified asthma with (acute) exacerbation (principal); J96.01 Acute respiratory failure with hypoxia; J96.02 Acute respiratory failure with hypercapnia; N17.9 Acute kidney failure, unspecified; F11.20 Opioid dependence, uncomplicated; K21.9 Gastro-esophageal reflux disease without esophagitis; E86.0 Dehydration; E83.41 Hypermagnesemia; Z23 Encounter for immunization; Z20.828 Contact with and (suspected) exposure to other viral communicable diseases; Z87.891 Personal history of nicotine dependence; Z79.51 Long term (current) use of inhaled steroids; Z79.899 Other long term (current) drug therapy
CPT/HCPCS: 36415; 71045; 80048; 80076; 82803; 83735; 85007; 85025; 85027; 90686; 93005; 94645; 96361; 96365; 96366; 96372; 96375; 99285; 99291; 99292; J0574; J2060; J2920; J2930; J3475; U0003

== ENCOUNTER → 2020-05-26 15:22 | Outpatient (BNVA) | payer OTHER, SELFPAY | PROVIDERS: PCP Internal Medicine; Visit Provider Internal Medicine | DX: F11.99 Opioid use, unspecified with unspecified opioid-induced disorder (principal) | CPT/HCPCS: 80305; 99212 ==

== ENCOUNTER → 2020-06-01 15:16 | Outpatient (BNVA) | payer OTHER, SELFPAY | PROVIDERS: PCP Internal Medicine; Visit Provider Internal Medicine | DX: F11.20 Opioid dependence, uncomplicated (principal) | CPT/HCPCS: 80305; 99212 ==

== ENCOUNTER → 2020-06-15 14:01 | Outpatient (BNVA) | payer OTHER, SELFPAY | PROVIDERS: PCP Internal Medicine; Visit Provider Internal Medicine | DX: Z76.89 Persons encountering health services in other specified circumstances (principal) ==

== ENCOUNTER 2020-06-16 16:43 | Emergency (ER) | payer OTHER, SELFPAY ==
--- NOTE | 2020-06-16 16:55 | XR_ITS ---
EXAMINATION: XR CHEST CLINICAL INFORMATION: SOB. COMPARISON: Chest 05/14/2020 TECHNIQUE: Frontal view of the chest was obtained. FINDINGS: Lungs are well-expanded and clear of acute pneumonic process. The heart size and pulmonary vascularity is normal. No gross bony abnormality seen. XR/XR chest 1V IMPRESSION: Unremarkable chest exam.
--- NOTE | 2020-06-16 16:55 | ED_ITS ---
HPI - SOB/Dyspnea General Chief Complaint: Dyspnea Stated Complaint: asthma Time Seen by Provider: 06/16/20 16:55 Source: patient Mode of arrival: ambulatory Limitations: no limitations History of Present Illness HPI Narrative: 39-year-old male with history of asthma prior substance abuse on Suboxone, hypertension, pancreatitis, asthma exacerbations with respiratory failure with multiple visits to the ER as well as admissions presenting today with complaint of 3 days of slight cough with shortness of breath progressively worsening today with wheezing and no improvement with Home inhaler. He denies any recent illness no fever or chills. MD elicited complaint: shortness of breath Onset (ago): day(s) Context: recent illness Timing: constant Severity: moderate Exacerbating factors: nothing Related Data Home Medications Medication Instructions Recorded Confirmed buprenorphine 8 mg-naloxone 2 mg 2 film SUBLINGUAL DAILY 05/11/20 06/06/20 sublingual film Fasenra 30 mg SUBCUT Q4W 05/14/20 06/06/20 ipratropium-albuterol 1 vial INHALATION Q6H PRN 05/14/20 06/06/20 montelukast 1 tab PO DAILY 05/14/20 06/06/20 Previous Rx's Medication Instructions Recorded albuterol sulfate 90 mcg/actuation 2 puff INHALATION Q6H PRN #8.5 g 04/27/20 aerosol inhaler fluticasone propionate [Flovent 1 inh INHALATION BID #60 ea 05/15/20 Diskus] prednisone 10 mg tablets in a dose See Rx Instructions PO PER PKG DIR 05/24/20 pack 18 Days #63 ea buprenorphine 8 mg-naloxone 2 mg 2 film SUBLINGUAL DAILY 7 Days #14 05/26/20 sublingual film ea buprenorphine 8 mg-naloxone 2 mg 2 film SUBLINGUAL DAILY 14 Days 06/01/20 sublingual film #28 ea fluticasone 113 mcg-salmeterol 14 1 inh PO BID #1 insert 06/09/20 mcg/actuation breath activated powdr buprenorphine 8 mg-naloxone 2 mg 2 film SUBLINGUAL DAILY 14 Days 06/15/20 sublingual film #28 ea azithromycin [Zithromax Z-Lyndon] 250 mg PO DAILY 5 Days #6 tab 06/16/20 prednisone 40 mg PO DAILY 5 Days #10 tab 06/16/20 Allergies Allergy/AdvReac Type Severity Reaction Status Date / Time metoclopramide [Reglan] Allergy Unknown Difficulty Verified 05/25/20 04:34 Breathing metronidazole [From FLAGYL] Allergy Unknown UNKNOWN Verified 05/25/20 04:34 haloperidol [From HALDOL] AdvReac Severe Tardive Verified 05/25/20 04:34 Diskinesia prochlorperazine AdvReac Severe Tardive Verified 05/25/20 04:34 [From COMPAZINE] Diskinesia Compazine Allergy Unknown Difficulty Uncoded 05/25/20 04:34 Breathing From REGLAN AdvReac Intermediate ANXIETY Uncoded 05/25/20 04:34 [facility] Past Medical History Medical History (Updated 06/16/20 @ 19:32 by Neal Castro NP) Asthma GERD (gastroesophageal reflux disease) HTN (hypertension) Opioid use disorder Opioid use disorder Pancreatitis Respiratory failure Surgical History No significant past surgical history Family History Family History Other Family history non-contributory Social History Social History Household Members: Spouse Housing: House Alcohol intake: never Smoking Status: Former smoker Smoked in Last 30 Days: No Use of substances other than those prescribed or required for medical reasons: No Advance Directives: No Advance Directives Information Provided: No service: No Current occupational status: employed Physical Exam Vital Signs: Vital Signs: Last Vital Signs Temp 98 F 06/16/20 18:41 Pulse 79 06/16/20 18:41 Resp 18 06/16/20 18:41 BP 129/81 06/16/20 18:41 Pulse Ox 94 06/16/20 18:41 Body Mass Index 38.6 Reviewed Const: General: in distress and anxious Orientation/consciousness: patient oriented x3 HENMT: Head: Yes normal to inspection Ears: hearing grossly normal bilaterally Eyes: General: appearance normal, both eyes and all related structures Visual Cannon: normal visual cannon by confrontation Neck: Neck: Yes normal visual inspection and No tender Thyroid: Thyroid normal Chest: Chest palpation & inspection: normal inspection of the chest Resp: Effort & Inspection: audible wheezes and Actively coughing Auscultation: wheezes expiratory wheezes and inspiratory wheezes Cardio: Jugular venous distension: no JVD GI: Inspection: Yes normal to inspection Percussion: Yes normal to percussion Auscultation: normal bowel sounds : General: Yes no CVA tenderness Back/Spine/Pelvis: Back: no CVA tenderness Skin: General skin exam: no rashes or lesions noted Neuro: General: patient oriented x3 Extrem: General: Yes normal to inspection Course Course Course Narrative: 1700 39-year-old male with history of asthma with frequent exacerbations and as well as respiratory failure having 3 days of cough with worsening asthma symptoms /wheezing not improved with home remedies upon arrival diffuse coarse wheezing hypoxic at 90-91% on room air placed on 2 L nasal cannula RT at bedside for hour long neb. Aside from the hypoxia there is no fever. Lactic acid blood cultures ordered will treat with IV fluids, magnesium IV and Solu-Medrol along with hour long neb. Procedures EJ/Peripheral Line Neck L: Skin Cleansed in Sterile Fashion: Yes Size (gauge): 20 IV Secured and Dressing Applied: Yes Patient Tolerated Procedure: well Additional Comments: After multiple attempts by multiple RNs and felt ultrasound-guided IV by RN left-sided EJ successful by me. MDM - SOB/Dyspnea MDM Narrative Medical decision making narrative: after our long neb, IV fluids, IV magnesium and Solu-Medrol he reports feelings much better. Oxygen at 95% on room air. Denies any shortness of breath. Aside from slight leukocytosis of 11 and lactic acidosis of 2.3 secondary to the albuterol use and not acute infectious pathology. COVID/RSV/flu swab was negative. Patient is requesting to go home given his extensive history is I did offer him to be observed live longer in the ED see if needs admission at this time he feels much better states that is not his worst episode and would like to go home. Differential Diagnosis Differential diagnosis: Likely acute exacerbation of chronic obstructive airways disease, pneumonia and asthma with exacerbation; Unlikely congestive heart failure, pulmonary embolism and sleep apnea Medical Records Attestation: I reviewed the patient's medical records. Lab Data Attestation: I reviewed the patient's lab results. Result diagrams: 06/16/20 17:33 06/16/20 17:33 Labs: Lab Results 06/16/20 06/16/20 06/16/20 Range/Units 17:33 17:33 17:33 WBC 11.5 H (4.8-10.8) X10*3/uL RBC 5.02 (4.60-5.80) X10*6/uL Hgb 14.4 (14.0-18.0) g/dl Hct 44.8 (42-52) % MCV 89.2 (80-98) fL MCH 28.7 (27.0-33.0) pg MCHC 32.1 (31.0-36.0) g/dl RDW 13.2 (11.0-16.0) % Plt Count 337 (160-400) X10*3/uL MPV 10.2 (9.4-12.4) fL Immature Gran % (Auto) 0.4 (0.0-0.4) % Neut % (Auto) 77.4 H (45-73) % Lymph % (Auto) 16.7 L (20-40) % [place] % (Auto) 3.9 (2-11) % Eos % (Auto) 1.0 (0-4) % Baso % (Auto) 0.6 (0-2) % Lymph # (Auto) 1.9 (1.2-4.9) X10*3/uL [place] # (Auto) 0.5 (0.1-1.2) X10*3/uL Eos # (Auto) 0.1 (0.0-0.4) X10*3/uL Baso # (Auto) 0.1 (0.0-0.2) X10*3/uL Abs Immat Gran (auto) 0.05 H (0.00-0.03) X10*3/uL Absolute Neuts (auto) 8.9 H (2.0-8.3) X10*3/uL Absolute Nucleated RBC 0.000 (0.0-0.012) X10*3/uL Nucleated RBC % (auto) 0.0 (0.0-0.2) /100WBC Sodium 139 (135-145) mmol/L Potassium 4.7 (3.3-5.1) mmol/l Chloride 103 (96-108) mmol/L Carbon Dioxide 26 (22-29) mmol/L Anion Gap 15 (12-20) BUN 14 (9-16) mg/dL Creatinine 0.86 (0.5-1.4) mg/dL Estim Creat Clear Calc 161.8 Estimated GFR > 60 Random Glucose 104 (60-115) mg/dL Lactic Acid 2.3 H* (0.5-2.0) mmol/L Calcium 8.5 (8.4-10.2) mg/dL Total Bilirubin 0.4 (0.0-1.0) mg/dL AST 38 H D (5-37) U/L ALT 48 H (0-40) U/L Alkaline Phosphatase 84 (39-117) U/L Troponin I High Sens (<3.5-35.0) ng/L Total Protein 7.7 (6.5-8.0) g/dL Albumin 4.1 (3.5-5.0) g/dL Coronavirus (PCR) (Negative) Influenza Type A (PCR) (Negative) Influenza Type B (PCR) (Negative) RSV RNA Qual (PCR) (Negative) 06/16/20 06/16/20 Range/Units 17:33 17:33 WBC (4.8-10.8) X10*3/uL RBC (4.60-5.80) X10*6/uL Hgb (14.0-18.0) g/dl Hct (42-52) % MCV (80-98) fL MCH (27.0-33.0) pg MCHC (31.0-36.0) g/dl RDW (11.0-16.0) % Plt Count (160-400) X10*3/uL MPV (9.4-12.4) fL Immature Gran % (Auto) (0.0-0.4) % Neut % (Auto) (45-73) % Lymph % (Auto) (20-40) % [place] % (Auto) (2-11) % Eos % (Auto) (0-4) % Baso % (Auto) (0-2) % Lymph # (Auto) (1.2-4.9) X10*3/uL [place] # (Auto) (0.1-1.2) X10*3/uL Eos # (Auto) (0.0-0.4) X10*3/uL Baso # (Auto) (0.0-0.2) X10*3/uL Abs Immat Gran (auto) (0.00-0.03) X10*3/uL Absolute Neuts (auto) (2.0-8.3) X10*3/uL Absolute Nucleated RBC (0.0-0.012) X10*3/uL Nucleated RBC % (auto) (0.0-0.2) /100WBC Sodium (135-145) mmol/L Potassium (3.3-5.1) mmol/l Chloride (96-108) mmol/L Carbon Dioxide (22-29) mmol/L Anion Gap (12-20) BUN (9-16) mg/dL Creatinine (0.5-1.4) mg/dL Estim Creat Clear Calc Estimated GFR Random Glucose (60-115) mg/dL Lactic Acid (0.5-2.0) mmol/L Calcium (8.4-10.2) mg/dL Total Bilirubin (0.0-1.0) mg/dL AST (5-37) U/L ALT (0-40) U/L Alkaline Phosphatase (39-117) U/L Troponin I High Sens < 3.5 (<3.5-35.0) ng/L Total Protein (6.5-8.0) g/dL Albumin (3.5-5.0) g/dL Coronavirus (PCR) NEGATIVE (Negative) Influenza Type A (PCR) NEGATIVE (Negative) Influenza Type B (PCR) NEGATIVE (Negative) RSV RNA Qual (PCR) NEGATIVE (Negative) Critical Care Time Critical Care Time Critical Care Time: Yes Total Critical Care Time: 65 Attestation: Evaluated upon arrival for respiratory distress history of asth ma/ respiratory failure requiring immediate interventions including hourlong inhaler, multiple re-evaluation, IV medication therapy as well as establishing peripheral line/ EJ. Discharge Plan Discharge Clinical Impression: Asthma exacerbation, Cough Patient Disposition: Home, Self-Care Instructions: Asthma (ED), Upper Respiratory Infection (ED) Additional Instructions: Your chest x-ray did not show any signs of acute infection Her COVID test Is negative Given his significant history admission was offered to however he declined this Please return if any concerns or worsening symptoms otherwise follow up as instructed Thank you Prescriptions: New prednisone 20 mg tablet 40 mg PO DAILY 5 Days Qty: 10 RF: 0 azithromycin [Zithromax Z-Lyndon] 250 mg tablet 250 mg PO DAILY 5 Days Qty: 6 RF: 0 No Action albuterol sulfate 90 mcg/actuation HFA aerosol inhaler 2 puff inhalation Q6H PRN (Reason: shortness of breath or wheezing) Qty: 8.5 RF: 5 fluticasone propion-salmeterol 113-14 mcg/actuation aerosol powdr breath activated 1 inh PO BID Qty: 1 RF: 5 ipratropium-albuterol 0.5 mg-3 mg(2.5 mg base)/3 mL solution for nebulization 1 vial inhalation Q6H PRN (Reason: Shortness Of Breath) RF: 0 montelukast 10 mg tablet 1 tab PO DAILY RF: 0 Fasenra 30 mg/mL syringe 30 mg subcut Q4W RF: 0 Flovent Diskus 100 mcg/actuation blister with device 1 inh inhalation BID Qty: 60 RF: 0 prednisone 10 mg tablets,dose pack See Rx Instructions PO PER PKG DIR 18 Days Qty: 63 RF: 0 buprenorphine-naloxone [Suboxone] 8-2 mg film 2 film sublingual DAILY RF: 0 buprenorphine-naloxone [Suboxone] 8-2 mg film 2 film sublingual DAILY 7 Days Qty: 14 RF: 0 buprenorphine-naloxone [Suboxone] 8-2 mg film 2 film sublingual DAILY 14 Days Qty: 28 RF: 0 buprenorphine-naloxone [Suboxone] 8-2 mg film 2 film sublingual DAILY 14 Days Qty: 28 RF: 0 Referrals: Maxx Roberto MD [Primary Care Provider] - 3 days
--- NOTE | 2020-06-16 16:55 | ECG_ITS ---
Test Reason : SOB Blood Pressure : / mmHG Vent. Rate : 071 BPM Atrial Rate : 071 BPM P-R Int : 114 ms QRS Dur : 090 ms QT Int : 404 ms P-R-T Axes : 030 029 033 degrees QTc Int : 439 ms Normal sinus rhythm Normal ECG When compared with ECG of 14-MAY-2020 09:02, No significant changes seen Referred By: Neal Castro Electronically Signed By:NOHEMI SIMPSON
[2020-06-16 17:04] VITALS: PULSE 66; O2SAT 92
[2020-06-16] MEDS: Albuterol Sulfate (0.083%) 2.5 MG/3 ML VIAL.NEB 10 MG INHALE (17:04)
[2020-06-16 17:14] VITALS: BP 132/87; PULSE 70; PULSE 76; RESP 14; RESP 16; TEMP 36.8; O2SAT 96; BMI 38.6
[2020-06-16] MEDS: Magnesium Sulfate/H2O 2 GM/50 ML PIGGYBACK IV (17:42)
[2020-06-16] MEDS: 0.9 % Sodium Chloride 1,000 ML 999 ML IV (17:42)
[2020-06-16] MEDS: methylPREDNISolone Sod Succ/PF 125 MG/2 ML VIAL IVPUSH (17:42)
[2020-06-16 18:17] LABS: MANUAL DIFF FLAG NO
[2020-06-16 18:18] LABS: Basophils Absolute Auto 0.1 X10*3/uL (0.0-0.2); Basophils Percent Auto 0.6 % (0-2); Eosinophils Absolute Auto 0.1 X10*3/uL (0.0-0.4); Hematocrit 44.8 % (42-52); Hemoglobin 14.4 g/dl (14.0-18.0); Imm Gran Abs Auto 0.05 X10*3/uL (0.00-0.03); Imm Gran Pct Auto 0.4 % (0.0-0.4); Lymphocytes Absolute Auto 1.9 X10*3/uL (1.2-4.9); Lymphocytes Percent Auto 16.7 % (20-40); Mean Corpuscular HGB Conc 32.1 g/dl (31.0-36.0); Mean Corpuscular Hemoglobin 28.7 pg (27.0-33.0); Mean Corpuscular Volume 89.2 fL (80-98); Mean Platelet Volume 10.2 fL (9.4-12.4); Monocytes Absolute Auto 0.5 X10*3/uL (0.1-1.2); Monocytes Percent Auto 3.9 % (2-11); Neutrophils Absolute Auto 8.9 X10*3/uL (2.0-8.3); Neutrophils Percent Auto 77.4 % (45-73); Platelet Count 337 X10*3/uL (160-400); Red Blood Count 5.02 X10*6/uL (4.60-5.80); Red Cell Distribution Width 13.2 % (11.0-16.0); White Blood Count 11.5 X10*3/uL (4.8-10.8)
[2020-06-16 18:41] VITALS: BP 129/81; PULSE 79; RESP 18; TEMP 36.6; O2SAT 94
[2020-06-16 18:46] LABS: Lactic Acid 2.3 mmol/L (0.5-2.0)
[2020-06-16 18:49] LABS: Alanine Aminotransferase 48 U/L (0-40); Albumin Level 4.1 g/dL (3.5-5.0); Alkaline Phosphatase 84 U/L (39-117); Anion Gap 15 (12-20); Aspartate Amino Transferase 38 U/L (5-37); Bilirubin Total 0.4 mg/dL (0.0-1.0); Blood Urea Nitrogen 14 mg/dL (9-16); Calcium 8.5 mg/dL (8.4-10.2); Carbon Dioxide 26 mmol/L (22-29); Chloride 103 mmol/L (96-108); Creatinine Clr Calc Pharmacy 161.8; Estimated Glomerular Filt Rate > 60; Glucose Random 104 mg/dL (60-115); Potassium 4.7 mmol/l (3.3-5.1); Sodium 139 mmol/L (135-145); Total Protein 7.7 g/dL (6.5-8.0); Troponin-I High Sensitivity < 3.5 ng/L (<3.5-35.0)
[2020-06-16 19:20] LABS: Influenza A PCR NEGATIVE (Negative); Influenza B PCR NEGATIVE (Negative); Resp Syncy Virus RNA Qual PCR NEGATIVE (Negative); SARS COV2 PCR INHOUSE NEGATIVE (Negative)
[2020-06-16 20:12] LABS: Reflex Lactate? Lactic Acid Added
== END 2020-06-16 20:00 | disposition home or self-care (01) ==
PROVIDERS: Nurse Practitioner Primary Care; Emergency Provider Emergency Medicine Emergency Medical Services; PCP Internal Medicine
DX: J45.901 Unspecified asthma with (acute) exacerbation (principal); Z20.828 Contact with and (suspected) exposure to other viral communicable diseases; I10 Essential (primary) hypertension; F11.20 Opioid dependence, uncomplicated
CPT/HCPCS: 0241U; 36415; 71045; 80053; 83605; 84484; 85025; 87040; 93005; 94640; 94644; 96365; 96366; 96375; 99284; 99291; J2930; J3475

== ENCOUNTER → 2020-06-29 12:09 | Outpatient (BNVA) | payer OTHER, SELFPAY | PROVIDERS: PCP Internal Medicine; Visit Provider Internal Medicine | DX: Z76.89 Persons encountering health services in other specified circumstances (principal) ==

== ENCOUNTER → 2020-07-06 14:48 | Outpatient (BNVA) | payer OTHER, SELFPAY | PROVIDERS: Visit Provider Internal Medicine | DX: F11.99 Opioid use, unspecified with unspecified opioid-induced disorder (principal) | CPT/HCPCS: 80305; 99212 ==

== ENCOUNTER → 2020-07-20 11:29 | Outpatient (BNVA) | payer OTHER, SELFPAY | PROVIDERS: PCP Internal Medicine; Visit Provider Internal Medicine | DX: Z76.89 Persons encountering health services in other specified circumstances (principal) ==

== ENCOUNTER → 2020-08-17 14:03 | Outpatient (BNVA) | payer OTHER, SELFPAY | PROVIDERS: PCP Internal Medicine; Visit Provider Internal Medicine | DX: Z51.81 Encounter for therapeutic drug level monitoring (principal); F11.99 Opioid use, unspecified with unspecified opioid-induced disorder | CPT/HCPCS: 80305; 99211 ==

== ENCOUNTER 2020-08-17 14:33 | Outpatient (REF) | payer OTHER, SELFPAY ==
[2020-08-21 09:58] LABS: Buprenorphine 380 ng/mL; Norbuprenorphine >1000 ng/mL
== END 2020-08-17 14:34 | disposition home or self-care (01) ==
LOC: HO.LNP 14:33
PROVIDERS: Visit Provider Internal Medicine
DX: Z51.81 Encounter for therapeutic drug level monitoring (principal)
CPT/HCPCS: 80348

== ENCOUNTER → 2020-08-31 14:00 | Outpatient (BNVA) | payer OTHER, SELFPAY | PROVIDERS: PCP Internal Medicine; Visit Provider Internal Medicine | DX: F11.99 Opioid use, unspecified with unspecified opioid-induced disorder (principal); Z51.81 Encounter for therapeutic drug level monitoring ==

== ENCOUNTER → 2020-09-14 14:08 | Outpatient (BNVA) | payer OTHER, SELFPAY | PROVIDERS: PCP Internal Medicine; Visit Provider Internal Medicine | DX: F11.99 Opioid use, unspecified with unspecified opioid-induced disorder (principal); Z79.899 Other long term (current) drug therapy | CPT/HCPCS: 80305; 99212 ==

== ENCOUNTER → 2020-09-28 13:02 | Outpatient (BNVA) | payer OTHER, SELFPAY | PROVIDERS: PCP Internal Medicine; Visit Provider Internal Medicine Pulmonary Disease | DX: J45.50 Severe persistent asthma, uncomplicated (principal); R91.8 Other nonspecific abnormal finding of lung field; Z91.09 Other allergy status, other than to drugs and biological substances; Z87.891 Personal history of nicotine dependence | CPT/HCPCS: 99212 ==

== ENCOUNTER → 2020-10-12 14:02 | Outpatient (BNVA) | payer OTHER, SELFPAY | PROVIDERS: PCP Internal Medicine; Visit Provider Internal Medicine | DX: F11.99 Opioid use, unspecified with unspecified opioid-induced disorder (principal) | CPT/HCPCS: 80305; 99212 ==

== ENCOUNTER 2020-10-22 11:25 | Outpatient (REF) | payer OTHER, SELFPAY ==
--- NOTE | ~2020-10-22 | CT_ITS ---
EXAMINATION: CT CHEST WITHOUT CONTRAST CLINICAL INFORMATION: Nonspecific abnormal finding lung field COMPARISON: Previous chest x-ray June 2020 TECHNIQUE: Multidetector volumetric CT imaging of the chest was done. Axial MIP volume rendering provided. Sagittal and coronal reformatted images were obtained. This CT examination was performed using dose optimization techniques as appropriate, variously including the following: *Automated exposure control *Adjustment of mA and/or kV according to patient size (this includes techniques or standardized protocols for targeted exams where dose is matched to indication/reason for exam; i.e. extremities or head) *Use of iterative reconstruction technique DLP: 271 mGy-cm FINDINGS: LUNGS: There is a 4 mm right upper lobe nodule axial image 83 series 7. There is a 3 mm heterogeneous or semisolid right upper lobe nodule axial image 82 series 7. There is an 8 mm right upper lobe nodule axial image 108 series 7. This has a increased surrounding groundglass attenuation. There is a 4 mm left upper lobe nodule axial image 117 series 7. There is a 5 mm mixed solid and groundglass attenuation left upper lobe nodule axial image 185 series 7. There is a 4 mm right lower lobe nodule axial image 265 series 7. There is a 3 mm peripheral or subpleural nodule axial image 264 series 7. There is a 1.1 x 1.5 cm lingular nodule axial image 314 series 7. This is irregular in shape and demonstrates surrounding groundglass attenuation. There is a 2 mm right lower lobe nodule axial image 343 series 7. There is a 2 mm peripheral left lower lobe nodule axial image 356 series 7. There is a 2 mm left lower lobe nodule axial 365 series 7. There is a 2 mm right lower lobe nodule along the diaphragmatic pleural surface axial image 372 series 7. There is a 2 mm left lower lobe peripheral or subpleural nodule along the diaphragmatic pleural surface axial image 377 series 7. There is a 3 mm peripheral or subpleural right lower lobe nodule axial image 392 series 7. Scattered areas of bronchial wall thickening. MEDIASTINUM: There is a prominent right pretracheal lymph node measuring 1.4 x 1.6 cm axial image 9 series 3. This appears to have a low-attenuation fatty hilum. There are smaller mediastinal lymph nodes in the subcarinal and precarinal AP window regions. The heart does not appear enlarged. There is no pericardial effusion. There is mild coronary artery calcification. PLEURA: There is no pleural effusion. No pleural mass or thickening. AXILLA: No lymphadenopathy. UPPER ABDOMEN: Unremarkable. OSSEOUS STRUCTURES: There are mild degenerative changes of the spine. CT/CT chest wo con IMPRESSION: Multiple bilateral pulmonary nodules, largest measuring 8 mm in the right upper lobe and 1.1 x 1.5 cm in the lingula. Infectious, inflammatory and neoplastic processes should be considered. Imaging follow-up or comparison with old outside exams if they are available is recommended. Prominent right paratracheal lymph node.
== END 2020-10-22 11:26 | disposition home or self-care (01) ==
LOC: HO.CT 11:25
PROVIDERS: Visit Provider Internal Medicine Pulmonary Disease
DX: R91.8 Other nonspecific abnormal finding of lung field (principal)
CPT/HCPCS: 71250

== ENCOUNTER 2020-10-22 12:51 | Outpatient (REF) | payer OTHER, SELFPAY | END 2020-10-22 12:52 | disposition home or self-care (01) | LOC: HO.MDS 12:51 | PROVIDERS: PCP Internal Medicine; Visit Provider Internal Medicine Pulmonary Disease | DX: J45.50 Severe persistent asthma, uncomplicated (principal) | CPT/HCPCS: 96372; J0517 ==

== ENCOUNTER 2020-11-26 14:07 | Outpatient (REF) | payer OTHER, SELFPAY ==
[2020-11-29 09:31] LABS: Buprenorphine 520 ng/mL; Norbuprenorphine >1000 ng/mL
== END 2020-11-26 14:08 | disposition home or self-care (01) ==
LOC: HO.LAB 14:07
PROVIDERS: PCP Internal Medicine; Visit Provider Internal Medicine
DX: F11.20 Opioid dependence, uncomplicated (principal)
CPT/HCPCS: 80305; 80348; 99211

== ENCOUNTER → 2020-12-24 14:42 | Outpatient (BNVA) | payer OTHER, SELFPAY | PROVIDERS: Visit Provider Internal Medicine | DX: F11.11 Opioid abuse, in remission (principal) | CPT/HCPCS: 80305; 99212 ==

== ENCOUNTER → 2021-01-06 13:44 | Outpatient (BNVA) | payer OTHER, SELFPAY | PROVIDERS: PCP Internal Medicine; Visit Provider Internal Medicine Pulmonary Disease | DX: J45.50 Severe persistent asthma, uncomplicated (principal); R91.8 Other nonspecific abnormal finding of lung field; Z91.09 Other allergy status, other than to drugs and biological substances | CPT/HCPCS: 99212 ==

== ENCOUNTER 2021-01-13 12:15 | Outpatient (REF) | payer OTHER, SELFPAY | END 2021-01-13 12:16 | disposition home or self-care (01) | LOC: HO.MDS 12:15 | PROVIDERS: PCP Internal Medicine; Visit Provider Internal Medicine Pulmonary Disease | DX: J45.50 Severe persistent asthma, uncomplicated (principal) | CPT/HCPCS: 96372; J0517 ==

== ENCOUNTER → 2021-01-21 14:33 | Outpatient (BNVA) | payer OTHER, SELFPAY | PROVIDERS: Visit Provider Internal Medicine | DX: Z51.81 Encounter for therapeutic drug level monitoring (principal); F11.90 Opioid use, unspecified, uncomplicated | CPT/HCPCS: 80305; 99212 ==

== ENCOUNTER → 2021-02-18 10:19 | Outpatient (BNVA) | payer OTHER, SELFPAY | PROVIDERS: Visit Provider Internal Medicine | DX: Z51.81 Encounter for therapeutic drug level monitoring (principal) | CPT/HCPCS: 80305; 99211 ==

== ENCOUNTER 2021-03-09 14:04 | Outpatient (REF) | payer OTHER, SELFPAY | END 2021-03-09 14:05 | disposition home or self-care (01) | LOC: HO.MDS 14:04 | PROVIDERS: Visit Provider Internal Medicine Pulmonary Disease | DX: J45.50 Severe persistent asthma, uncomplicated (principal) | CPT/HCPCS: 96372; J0517 ==

== ENCOUNTER → 2021-03-18 14:19 | Outpatient (BNVA) | payer OTHER, SELFPAY | PROVIDERS: PCP Nurse Practitioner Family; Visit Provider Internal Medicine | DX: F11.20 Opioid dependence, uncomplicated (principal); Z51.81 Encounter for therapeutic drug level monitoring; Z79.899 Other long term (current) drug therapy | CPT/HCPCS: 80305; 99212 ==

== ENCOUNTER → 2021-04-01 14:52 | Outpatient (BNVA) | payer OTHER, SELFPAY | PROVIDERS: PCP Internal Medicine; Visit Provider Internal Medicine Pulmonary Disease | DX: J45.50 Severe persistent asthma, uncomplicated (principal); R91.8 Other nonspecific abnormal finding of lung field; R06.00 Dyspnea, unspecified; G47.33 Obstructive sleep apnea (adult) (pediatric); Z91.09 Other allergy status, other than to drugs and biological substances | CPT/HCPCS: 99212 ==

== ENCOUNTER 2021-04-13 13:02 | Outpatient (REF) | payer OTHER, SELFPAY ==
[2021-04-13 18:28] LABS: Fentanyl, urine Not Detected (Not Detect)
== END 2021-04-13 13:03 | disposition home or self-care (01) ==
LOC: HO.MDS 13:02
PROVIDERS: Internal Medicine; PCP Internal Medicine; Visit Provider Internal Medicine Pulmonary Disease
DX: J45.50 Severe persistent asthma, uncomplicated (principal)
CPT/HCPCS: 36415; 80305; 80307; 96372; 99212; J0517

== ENCOUNTER → 2021-04-20 14:56 | Outpatient (REF) | payer OTHER, SELFPAY | LOC: HO.SL 14:56 | PROVIDERS: PCP Internal Medicine; Visit Provider Internal Medicine Pulmonary Disease | DX: G47.33 Obstructive sleep apnea (adult) (pediatric) (principal) | CPT/HCPCS: 95806 ==

== ENCOUNTER → 2021-05-16 14:42 | Outpatient (BNVA) | payer OTHER, SELFPAY | PROVIDERS: PCP Internal Medicine; Visit Provider Internal Medicine | DX: Z51.81 Encounter for therapeutic drug level monitoring (principal); F11.90 Opioid use, unspecified, uncomplicated | CPT/HCPCS: 80305; 99212 ==

== ENCOUNTER 2021-07-09 08:35 | Emergency (ER) | payer OTHER, SELFPAY ==
[2021-07-09 08:38] VITALS: BP 118/78; PULSE 104; O2SAT 100
[2021-07-09 08:49] VITALS: BP 111/87; PULSE 112; RESP 22; TEMP 37.1; O2SAT 98; BMI 35.3
[2021-07-09 09:19] LABS: COVID-19 Test Negative (Negative)
== END 2021-07-09 14:24 | disposition left against medical advice (07) ==
LOC: HO.ED 14:11
PROVIDERS: Emergency Provider Emergency Medicine; PCP Internal Medicine
DX: R11.10 Vomiting, unspecified (principal); Z20.822 Contact with and (suspected) exposure to COVID-19
CPT/HCPCS: 36415; 87635; 99281; 99282; 99283

== ENCOUNTER → 2021-07-26 14:48 | Outpatient (BNVA) | payer OTHER, SELFPAY | PROVIDERS: PCP Internal Medicine; Visit Provider Internal Medicine | DX: F11.20 Opioid dependence, uncomplicated (principal); Z51.81 Encounter for therapeutic drug level monitoring; Z79.899 Other long term (current) drug therapy | CPT/HCPCS: 80305; 99212 ==

== ENCOUNTER → 2021-09-27 14:36 | Outpatient (BNVA) | payer OTHER, SELFPAY | PROVIDERS: PCP Internal Medicine; Visit Provider Internal Medicine | DX: F11.20 Opioid dependence, uncomplicated (principal) | CPT/HCPCS: 80305; 99212 ==

== ENCOUNTER → 2021-11-25 14:58 | Outpatient (BNVA) | payer OTHER, SELFPAY | PROVIDERS: PCP Internal Medicine; Visit Provider Internal Medicine | DX: Z51.81 Encounter for therapeutic drug level monitoring (principal); F11.20 Opioid dependence, uncomplicated | CPT/HCPCS: 99212 ==

== ENCOUNTER → 2022-01-20 15:33 | Outpatient (BNVA) | payer MEDICAID, SELFPAY | PROVIDERS: Visit Provider Internal Medicine | DX: Z51.81 Encounter for therapeutic drug level monitoring (principal); F11.20 Opioid dependence, uncomplicated | CPT/HCPCS: 80305; 99212 ==

== ENCOUNTER → 2022-02-24 13:31 | Outpatient (BNVA) | payer OTHER, SELFPAY | PROVIDERS: Visit Provider Internal Medicine | DX: Z51.81 Encounter for therapeutic drug level monitoring (principal); F11.20 Opioid dependence, uncomplicated | CPT/HCPCS: 99212 ==

== ENCOUNTER → 2022-04-06 14:47 | Outpatient (REF) | payer OTHER, SELFPAY ==
--- NOTE | 2022-04-06 15:01 | CA_ITS ---
Transthoracic Echocardiogram Patient (Last, First, Middle): Jesus Marley, Gender: Male Date of : 1980 Age: 41 Procedure Date: 04/06/2022 Procedure Type: Transthoracic Echocardiogram Location: OP Height: 182.88 cm Weight: 124.74 kg BSA: 2.44 m2 Heart Rate: bpm BP: 110 / 72 mmHg Claims Vice President: ANA MARIA Referring MD: Jack Gonzalez MD Prekindergarten Teacher: Min Garces MD Symptoms: R06.00 Study Quality: Adequate ECG Rhythm: Sinus Conclusions: - Essentially normal study Findings Left Ventricle Normal left ventricular size, thickness, and systolic function. The visually estimated ejection fraction is between 60-65%. Regional wall motion abnormalities can not be excluded due to suboptimal endocardial definition. Spectral Doppler is indicative of a normal filling pattern. Right Ventricle Normal right ventricular cavity size and systolic function. Atria Both atria are normal in size. There is no evidence of interatrial shunt. Aortic Valve The aortic valve structure and function is likely normal. There is no aortic valve stenosis. There is no aortic valve regurgitation. Mitral Valve Normal mitral valve structure and function. There is trace mitral valve regurgitation. There is no mitral valve stenosis. Pulmonic Valve The pulmonic valve was not well visualized. Tricuspid Valve Likely normal tricuspid valve structure and function. Tricuspid regurgitation envelope is inadequate for calculation of right ventricular systolic pressure. Normal right atrial pressure. Great Vessels All visible segments of the aorta are normal in size. The pulmonary artery was not well visualized. Venous The inferior vena cava is normal in size and collapses greater than 50% with inspiration. Pericardium/Pleural There is no evidence of pericardial effusion. Prior Study Comparison No prior study available for comparison. Recommendations, Care & Conclusions Recommend contrast in the future to improve endocardial definition. Measurements 2D Linear Measurements IVSd: 0.92 0.6-0.9/0.6-1.0 cm LVIDd: 5.08 3.9-5.3/4.2-5.9 cm LVIDd Index: 2.08 2.4-3.2/2.2-3.1 cm/m2 LVIDs: 3.82 2.0-3.6 cm LVPWd: 0.86 0.7-1.1 cm LA Diam: 3.40 2.7-3.8/3.0-4.0 cm LAIDs Index: 1.39 1.5-2.3 cm/m2 LV Mass: 199.70 67-162/88-224 g LV Mass Index: 81.84 43-95/49-115 g/m2 LVOT Diam: 2.20 3.0+(-)1.3 cm 2D Systolic Function EF 4C: 62.60 >55% EF 2C: 61.80 >55% EF BiP: 62.90 >55% Mitral Valve MV Pk E: 0.75 MV PK A: 0.57 MV Decel Time: 238.00 E/A: 1.30 E'Lateral: 14.80 E'Medial: 9.90 E/E' Med: 7.50 E/E' Lat: 5.00 PHT: 70.00 MVA PHT: 3.14 Decel [place]: 3.14 Aortic Valve AoV Pk Regulo: 1.38 AoV Mn Regulo: 0.95 AoV VTI: 0.28 AoV Pk Grad: 8.00 Aov Mn Grad: 4.00 ANITA Cont.VTI: 2.85 LVOT LVOT Pk Regulo: 0.96 LVOT Mn Regulo: 0.67 LVOT VTI: 0.21 LVOT Pk Grad: 4.00 LVOT Mn Grad: 2.00 LVOT Diam: 2.20 LVOT Area: 3.80 Diastolic Function MV Pk E: 0.75 MV Pk A: 0.57 E/A: 1.30 E'Medial: 9.90 E/E' Med: 7.50 E' Laterial: 14.80 E/E' Lat: 5.00 Right Ventricle TAPSE (mm): 2.33 TVS' Regulo: 14.00 Tricuspid Valve RA Press: 3.00 Great Vessels Aorta Sinus of Valsalva: 3.39 2.0-3.5 cm Ao Asc: 3.00 2.1-3.4 cm Updated in Other Vendor System with Status of Final Min aGrces MD electronically signed on 04/07/2022 11:39:19 AM with status of Final
== END ==
LOC: HO.CARD 14:47
PROVIDERS: PCP Internal Medicine; Visit Provider Internal Medicine Pulmonary Disease
DX: R06.00 Dyspnea, unspecified (principal)
CPT/HCPCS: 93306

== ENCOUNTER → 2022-04-18 15:31 | Outpatient (BNVA) | payer OTHER, SELFPAY | PROVIDERS: PCP Internal Medicine; Visit Provider Internal Medicine | DX: Z51.81 Encounter for therapeutic drug level monitoring (principal); F11.20 Opioid dependence, uncomplicated | CPT/HCPCS: 99212 ==

== ENCOUNTER → 2022-05-08 13:59 | Outpatient (BNVA) | payer OTHER, SELFPAY | PROVIDERS: PCP Internal Medicine; Visit Provider Internal Medicine Pulmonary Disease | DX: J45.909 Unspecified asthma, uncomplicated (principal); G47.33 Obstructive sleep apnea (adult) (pediatric); Z91.09 Other allergy status, other than to drugs and biological substances | CPT/HCPCS: 99212 ==

== ENCOUNTER 2022-05-25 10:13 | Outpatient (REF) | payer OTHER, SELFPAY ==
--- NOTE | ~2022-05-25 | CT_ITS ---
EXAMINATION: CT CHEST WITHOUT CONTRAST CLINICAL INFORMATION: Other nonspecific abnormal finding of lung field COMPARISON: Previous chest CT October 2020 TECHNIQUE: Multidetector volumetric CT imaging of the chest was done. Axial MIP volume rendering provided. Sagittal and coronal reformatted images were obtained. This CT examination was performed using dose optimization techniques as appropriate, variously including the following: *Automated exposure control *Adjustment of mA and/or kV according to patient size (this includes techniques or standardized protocols for targeted exams where dose is matched to indication/reason for exam; i.e. extremities or head) *Use of iterative reconstruction technique DLP: 257 mGy-cm FINDINGS: LUNGS: The previously identified larger heterogeneous pulmonary nodules measuring 8 mm in the right upper lobe 6 mm in the left upper lobe, 1 x 1.5 cm in the lingula and 8 mm in the peripheral or subpleural left lower lobe adjacent to the spine are no longer seen. Otherwise smaller pulmonary nodules are stable. Largest pulmonary nodules are a 6 mm question partially calcified right upper lobe peripheral or subpleural nodule adjacent to the mediastinum axial image 245 series 6 and 6 mm left lower lobe nodule axial image 384 series 6. There are scattered areas of mild airways disease. There is new segmental atelectasis or small area of consolidation in the inferior segment of the lingula. MEDIASTINUM: The visualized thyroid gland is normal. There is stable mediastinal and hilar lymphadenopathy. Largest lymph node is a right paratracheal precarinal lymph nodes measuring 1.2 and 1.4 cm in short axis and left hilar/AP window lymph node measuring 2.2 cm in short axis. There is a small right cardiophrenic angle or anterior diaphragmatic lymph node that is stable. There is slight increased attenuation of the fat in the anterior superior mediastinum on questionable for thymic hyperplasia. This appears increased from 2020 exam. A discrete thymic soft tissue mass is not seen. There is a small superior anterior mediastinal calcification axial image 14 series 3 that is stable. Normal heart size. No pericardial effusion. CORONARY ARTERY CALCIFICATION: None visualized on this study. PLEURA: There is no pleural effusion. No pleural mass or thickening. AXILLA: No lymphadenopathy. UPPER ABDOMEN: Unremarkable. OSSEOUS STRUCTURES: Mild degenerative changes of the spine. CT/CT chest wo IV con IMPRESSION: The larger heterogeneous pulmonary nodules seen October 2020 are no longer seen. The smaller solid appearing pulmonary nodules are stable, largest measuring 6 mm.. Stable mediastinal and bilateral hilar lymphadenopathy. Increased attenuation in the in the anterior superior mediastinum questionable for a thymic hyperplasia. This appears more prominent than on October 2020 exam. Fleischner guidelines were followed.
== END 2022-05-25 10:14 | disposition home or self-care (01) ==
LOC: HO.CT 10:13
PROVIDERS: PCP Internal Medicine; Visit Provider Internal Medicine Pulmonary Disease
DX: R91.8 Other nonspecific abnormal finding of lung field (principal)
CPT/HCPCS: 71250

== ENCOUNTER → 2022-06-13 15:00 | Outpatient (BNVA) | payer OTHER, SELFPAY | PROVIDERS: PCP Internal Medicine; Visit Provider Internal Medicine | DX: F11.20 Opioid dependence, uncomplicated (principal) | CPT/HCPCS: 99212 ==

== ENCOUNTER → 2022-06-22 13:30 | Outpatient (BNVA) | payer OTHER, SELFPAY | PROVIDERS: PCP Internal Medicine; Visit Provider Internal Medicine Pulmonary Disease | DX: J45.50 Severe persistent asthma, uncomplicated (principal); R91.8 Other nonspecific abnormal finding of lung field; G47.33 Obstructive sleep apnea (adult) (pediatric) | CPT/HCPCS: 99212 ==

== ENCOUNTER → 2022-07-12 14:31 | Outpatient (BNVA) | payer OTHER, SELFPAY | PROVIDERS: PCP Internal Medicine; Visit Provider Nurse Practitioner Psychiatric/Mental Health | DX: F11.20 Opioid dependence, uncomplicated (principal); F17.210 Nicotine dependence, cigarettes, uncomplicated | CPT/HCPCS: 80305; 99212 ==

== ENCOUNTER → 2022-08-09 14:58 | Outpatient (BNVA) | payer OTHER, SELFPAY | PROVIDERS: PCP Internal Medicine; Visit Provider Nurse Practitioner Psychiatric/Mental Health | DX: Z51.81 Encounter for therapeutic drug level monitoring (principal); F11.20 Opioid dependence, uncomplicated | CPT/HCPCS: 99212 ==

== ENCOUNTER → 2022-10-09 14:33 | Outpatient (BNVA) | payer OTHER, SELFPAY | PROVIDERS: PCP Internal Medicine; Visit Provider Nurse Practitioner Psychiatric/Mental Health | DX: Z51.81 Encounter for therapeutic drug level monitoring (principal); F11.20 Opioid dependence, uncomplicated | CPT/HCPCS: 99212 ==

== ENCOUNTER → 2022-12-05 14:36 | Outpatient (BNVA) | payer OTHER, SELFPAY | PROVIDERS: PCP Internal Medicine; Visit Provider Nurse Practitioner Psychiatric/Mental Health | DX: F11.20 Opioid dependence, uncomplicated (principal) | CPT/HCPCS: 99212 ==

== ENCOUNTER 2023-02-02 15:56 | Outpatient (AMB) | payer OTHER, SELFPAY ==
--- NOTE | 2023-02-02 15:57 | A.OFFVIS_ITS ---
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: No Allergies metoclopramide [Reglan] Allergy (Unknown, Verified 02/02/23 16:04) Difficulty Breathing metronidazole [From FLAGYL] Allergy (Unknown, Verified 02/02/23 16:04) UNKNOWN haloperidol [From HALDOL] Adverse Reaction (Severe, Verified 02/02/23 16:04) Tardive Diskinesia prochlorperazine [From COMPAZINE] Adverse Reaction (Severe, Verified 02/02/23 16:04) Tardive Diskinesia Medication List - Last Reconciled 02/02/23 by Millie Henderson CNP buprenorphine-naloxone 8-2 mg (Suboxone) 2 film sublingual DAILY 30 days ipratropium-albuterol 0.5 mg-3 mg(2.5 mg base)/3 mL 3 mL inhalation Q6H PRN Symbicort 160-4.5 mcg/actuation (budesonide-formoterol) 2 puffs inhalation BID 30 days NS Ventolin HFA 90 mcg/actuation (albuterol sulfate) 2 puffs inhalation Q4-6H PRN 30 days NS Do you need a note to return to daycare/school/sports/work: No HPI MAT Visit HPI Details Pt presents for OUD treatment follow up Currently being prescribed Suboxone 8mg BID Denies any side effects related to medication Continues to abstain from substanc euse, overall health much improved, more active [facility] Medical History (Updated 02/05/23 @ 14:02 by Millie Henderson CNP) Asthma Asthma Elevated blood pressure reading GERD (gastroesophageal reflux disease) History of opioid abuse Hospital discharge follow-up HTN (hypertension) Morbid obesity with BMI of 40.0-44.9, adult Opioid use disorder Opioid use disorder Opioid use disorder Pancreatitis Referral of patient Respiratory failure Surgical History No significant past surgical history Family History Father No problems noted. Mother No problems noted. Brother In good health Son In good health Mental health disorder Son In good health Son In good health Son In good health Other Family history non-contributory Substance use disorder Social History Household Members: Spouse Housing: House Alcohol intake: never Patient Tobacco Use Status: Former Tobacco user Tobacco use type: Cigarette Cigarettes Per Day: 7 service: No Current occupational status: employed Cognitive needs: No Hearing needs: No Vision needs: No Review of Systems Const Reports as per HPI and Reports no additional complaints Physical Exam Vital Signs: Last Vital Signs Pulse 74 02/02/23 16:02 BP 116/74 02/02/23 16:02 Pulse Ox 98 02/02/23 16:02 Oxygen Delivery Method Room Air 02/02/23 16:02 Const Other: Well developed, well nourished male, in NAD. General: cooperative, healthy appearing, comfortable, no acute distress, well developed and alert Nutritional Appearance: average body habitus Orientation/consciousness: patient oriented x3 Limitations: no limitations Neuro General: patient oriented x3 Psych Appearance: well kempt Mental Status: mental status grossly normal Speech and movement: Normal speech and movement present Affect: normal affect Attitude: cooperative Thought process: Normal thought process present Thought content: Normal thought content present Insight: Good insight present (Psych) Judgement: Good judgement present (Psych) Assessment & Plan Assessment & Plan (1) Opioid use disorder, severe, in sustained remission: Code(s): F11.21 - Opioid dependence, in remission Plan: 1. Continue with current Suboxone dose. 2. Recovery support discussion. 3. Follow-up in 2 months. Medications: New hydroxyzine HCl 25 mg PO BEDTIME PRN 10 tabs 0RF anxiety Coding Level of Care Code Est Pt Level 3 (14700) Diagnoses Opioid use disorder, severe, in sustained remission F11.21
[2023-02-02 16:02] VITALS: BP 116/74; PULSE 74; O2SAT 98
== END 2023-02-02 16:26 | disposition home or self-care (01) ==
LOC: HO.HCC 15:56
PROVIDERS: PCP Internal Medicine; Visit Provider Nurse Practitioner Psychiatric/Mental Health
DX: F11.21 Opioid dependence, in remission (principal)
CPT/HCPCS: 99213

== ENCOUNTER → 2023-02-02 15:56 | Outpatient (BNVA) | payer OTHER, SELFPAY | PROVIDERS: PCP Internal Medicine; Visit Provider Nurse Practitioner Psychiatric/Mental Health | DX: F11.21 Opioid dependence, in remission (principal); Z51.81 Encounter for therapeutic drug level monitoring; Z79.899 Other long term (current) drug therapy | CPT/HCPCS: 99212 ==

== ENCOUNTER 2023-03-30 15:34 | Outpatient (AMB) | payer OTHER, SELFPAY ==
--- NOTE | 2023-03-30 15:38 | A.OFFVIS_ITS ---
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: No Allergies metoclopramide [Reglan] Allergy (Unknown, Verified 03/30/23 15:45) Difficulty Breathing metronidazole [From FLAGYL] Allergy (Unknown, Verified 03/30/23 15:45) UNKNOWN haloperidol [From HALDOL] Adverse Reaction (Severe, Verified 03/30/23 15:45) Tardive Diskinesia prochlorperazine [From COMPAZINE] Adverse Reaction (Severe, Verified 03/30/23 15:45) Tardive Diskinesia Do you need a note to return to daycare/school/sports/work: No HPI MAT Visit HPI Details Pt presents for OUD treatment follow up Currently being prescribed Suboxone 16mg QD Denies any side effects related to medication Continues to do well with recovery no questions or concerns [facility] Medical History (Updated 02/05/23 @ 14:02 by Millie Henderson CNP) Opioid use disorder Elevated blood pressure reading Morbid obesity with BMI of 40.0-44.9, adult History of opioid abuse Asthma Hospital discharge follow-up Referral of patient Opioid use disorder Respiratory failure Asthma GERD (gastroesophageal reflux disease) Pancreatitis HTN (hypertension) Opioid use disorder Surgical History No significant past surgical history Family History Father No problems noted. Mother No problems noted. Brother In good health Son In good health Mental health disorder Son In good health Son In good health Son In good health Other Family history non-contributory Substance use disorder Social History Household Members: Spouse Housing: House Alcohol intake: never Patient Tobacco Use Status: Former Tobacco user Tobacco use type: Cigarette Cigarettes Per Day: 7 service: No Current occupational status: employed Cognitive needs: No Hearing needs: No Vision needs: No Review of Systems Const Reports as per HPI and Reports no additional complaints Physical Exam Vital Signs: Last Vital Signs Pulse 53 03/30/23 15:45 BP 110/70 03/30/23 15:45 Pulse Ox 95 03/30/23 15:45 Oxygen Delivery Method Room Air 03/30/23 15:45 Const Other: Well developed, well nourished male, in NAD. General: cooperative, healthy appearing, comfortable, no acute distress, well developed and alert Nutritional Appearance: average body habitus Orientation/consciousness: patient oriented x3 Limitations: no limitations Neuro General: patient oriented x3 Psych Appearance: well kempt Mental Status: mental status grossly normal Speech and movement: Normal speech and movement present Affect: normal affect Attitude: cooperative Thought process: Normal thought process present Thought content: Normal thought content present Insight: Good insight present (Psych) Judgement: Good judgement present (Psych) Assessment & Plan Assessment & Plan (1) Opioid use disorder, severe, in sustained remission: Code(s): F11.21 - Opioid dependence, in remission Plan: 1. Continue with current Suboxone dose. 2.follow up 3 months Medications: Refilled buprenorphine-naloxone 8-2 mg (Suboxone) 2 film sublingual DAILY 60 ea 2RF 30 days Coding Level of Care Code Est Pt Level 3 (88906) Diagnoses Opioid use disorder, severe, in sustained remission F11.21
[2023-03-30 15:45] VITALS: BP 110/70; PULSE 53; O2SAT 95
== END 2023-03-30 16:02 | disposition home or self-care (01) ==
LOC: HO.HCC 15:34
PROVIDERS: PCP Internal Medicine; Visit Provider Nurse Practitioner Psychiatric/Mental Health
DX: F11.21 Opioid dependence, in remission (principal)
CPT/HCPCS: 99213

== ENCOUNTER → 2023-03-30 15:34 | Outpatient (BNVA) | payer OTHER, SELFPAY | PROVIDERS: PCP Internal Medicine; Visit Provider Nurse Practitioner Psychiatric/Mental Health | DX: F11.20 Opioid dependence, uncomplicated (principal) | CPT/HCPCS: 99212 ==

== ENCOUNTER 2023-07-27 16:08 | Outpatient (AMB) | payer OTHER, SELFPAY ==
[2023-07-27 16:08] VITALS: BP 130/80; PULSE 64; RESP 20; O2SAT 93
--- NOTE | 2023-07-27 16:08 | MHC.AM.SUB ---
Intake Vital Signs 07/27/23 16:08 BP 130/80 Blood Pressure Location Rt radial Position Sitting Respiration 20 Pulse 64 Pulse Source Pulse Oximeter Pulse Oximetry (%) 93 Intake Visit Reasons: MAT Visit Allergies metoclopramide [Reglan] Allergy (Unknown, Verified 03/30/23 15:45) Difficulty Breathing metronidazole [From FLAGYL] Allergy (Unknown, Verified 03/30/23 15:45) UNKNOWN haloperidol [From HALDOL] Adverse Reaction (Severe, Verified 03/30/23 15:45) Tardive Diskinesia prochlorperazine [From COMPAZINE] Adverse Reaction (Severe, Verified 03/30/23 15:45) Tardive Diskinesia Medication List - Last Reconciled 07/27/23 by Millie Henderson CNP buprenorphine-naloxone 8-2 mg (Suboxone) 2 film sublingual DAILY 30 days ipratropium-albuterol 0.5 mg-3 mg(2.5 mg base)/3 mL 3 mL inhalation Q6H PRN Symbicort 160-4.5 mcg/actuation (budesonide-formoterol) 2 puffs inhalation BID 30 days NS Ventolin HFA 90 mcg/actuation (albuterol sulfate) 2 puffs inhalation Q4-6H PRN 30 days NS HPI MAT Visit HPI Details Pt presents for OUD treatment follow up Currently being prescribed Suboxone 8mg BID Denies any side effects related to medication Continues to do well with recovery and overall health [facility] Medical History (Updated 02/05/23 @ 14:02 by Millie Henderson CNP) Opioid use disorder Elevated blood pressure reading Morbid obesity with BMI of 40.0-44.9, adult History of opioid abuse Asthma Hospital discharge follow-up Referral of patient Opioid use disorder Respiratory failure Asthma GERD (gastroesophageal reflux disease) Pancreatitis HTN (hypertension) Opioid use disorder Surgical History No significant past surgical history Family History Father No problems noted. Mother No problems noted. Brother In good health Son In good health Mental health disorder Son In good health Son In good health Son In good health Other Family history non-contributory Substance use disorder Social History Household Members: Spouse Housing: House Alcohol intake: never Comment: less wheezing Patient Tobacco Use Status: Former Tobacco user Tobacco use type: Cigarette Cigarettes Per Day: 7 service: No Current occupational status: employed Cognitive needs: No Hearing needs: No Vision needs: No Review of Systems Const Reports as per HPI and Reports no additional complaints Physical Exam Vital Signs: Last Vital Signs Pulse 64 07/27/23 16:08 Resp 20 07/27/23 16:08 BP 130/80 07/27/23 16:08 Pulse Ox 93 07/27/23 16:08 Const Other: Well developed, well nourished male, in NAD. General: cooperative, healthy appearing, comfortable, no acute distress, well developed and alert Nutritional Appearance: average body habitus Orientation/consciousness: patient oriented x3 Limitations: no limitations Neuro General: patient oriented x3 Psych Appearance: well kempt Mental Status: mental status grossly normal Speech and movement: Normal speech and movement present Affect: normal affect Attitude: cooperative Thought process: Normal thought process present Thought content: Normal thought content present Insight: Good insight present (Psych) Judgement: Good judgement present (Psych) Assessment & Plan Assessment & Plan (1) Opioid use disorder, severe, in sustained remission: Code(s): F11.21 - Opioid dependence, in remission Plan: 1. Continue with current Suboxone dose. 2.follow up 3 months Medications: Refilled buprenorphine-naloxone 8-2 mg (Suboxone) 2 film sublingual DAILY 60 ea 2RF 30 days Discontinued hydroxyzine HCl Discontinued Reason: Patient no longer taking 25 mg PO BEDTIME PRN 10 tabs 0RF anxiety Coding Level of Care Code Est Pt Level 3 (97722) Diagnoses Opioid use disorder, severe, in sustained remission F11.21
== END 2023-07-27 16:37 | disposition home or self-care (01) ==
PROVIDERS: PCP Internal Medicine; Visit Provider Nurse Practitioner Psychiatric/Mental Health
DX: F11.21 Opioid dependence, in remission (principal)
CPT/HCPCS: 99213

== ENCOUNTER → 2023-07-27 16:08 | Outpatient (BNVA) | payer OTHER, SELFPAY | PROVIDERS: PCP Internal Medicine; Visit Provider Nurse Practitioner Psychiatric/Mental Health | DX: F11.21 Opioid dependence, in remission (principal) | CPT/HCPCS: 99212 ==

== ENCOUNTER 2023-11-12 10:29 | Outpatient (AMB) | payer OTHER, SELFPAY ==
--- NOTE | 2023-11-12 10:28 | A.OFFVISCC_ITS ---
Vital Signs 11/12/23 10:31 BP 130/86 Blood Pressure Location Lt brachial Position Sitting Pulse 98 Pulse Source Pulse Oximeter Pulse Oximetry (%) 94 Oxygen Delivery Method Room Air Intake Visit Reasons: MAT Restart Allergies metoclopramide [Reglan] Allergy (Unknown, Verified 03/30/23 15:45) Difficulty Breathing metronidazole [From FLAGYL] Allergy (Unknown, Verified 03/30/23 15:45) UNKNOWN haloperidol [From HALDOL] Adverse Reaction (Severe, Verified 03/30/23 15:45) Tardive Diskinesia prochlorperazine [From COMPAZINE] Adverse Reaction (Severe, Verified 03/30/23 15:45) Tardive Diskinesia HPI HPI MAT Restart: Details: Patient presents for follow up Recently released from [facility] facility Reports he was sentenced to incarceration for probation violation from years ago He reports that he told the Garde Manager he had an active SUE because he did not want to be in [facility] No interruption to treatment for OUD and asthma Denies any substance use prior to or following release [facility] Medical History (Updated 11/12/23 @ 10:52 by Millie Henderson CNP) Opioid use disorder Elevated blood pressure reading Morbid obesity with BMI of 40.0-44.9, adult History of opioid abuse Asthma Hospital discharge follow-up Referral of patient Opioid use disorder Respiratory failure Asthma GERD (gastroesophageal reflux disease) Pancreatitis HTN (hypertension) Opioid use disorder Surgical History No significant past surgical history Family History Father No problems noted. Mother No problems noted. Brother In good health Son In good health Mental health disorder Son In good health Son In good health Son In good health Other Family history non-contributory Substance use disorder Social History Household Members: Spouse Housing: House Alcohol intake: never Comment: less wheezing Patient Tobacco Use Status: Former Tobacco user Tobacco use type: Cigarette Cigarettes Per Day: 7 service: No Current occupational status: employed Cognitive needs: No Hearing needs: No Vision needs: No Review of Systems Const Reports as per HPI and Reports no additional complaints Physical Exam Vital Signs: Last Vital Signs Pulse 98 11/12/23 10:31 BP 130/86 11/12/23 10:31 Pulse Ox 94 11/12/23 10:31 Oxygen Delivery Method Room Air 11/12/23 10:31 Const Other: Well developed, well nourished male, in NAD. General: cooperative, healthy appearing, comfortable, no acute distress, well developed and alert Nutritional Appearance: average body habitus Orientation/consciousness: patient oriented x3 Limitations: no limitations Neuro General: patient oriented x3 Psych Appearance: well kempt Mental Status: mental status grossly normal Speech and movement: Normal speech and movement present Affect: normal affect Attitude: cooperative Thought process: Normal thought process present Thought content: Normal thought content present Insight: Good insight present (Psych) Judgement: Good judgement present (Psych) Assessment & Plan Assessment & Plan (1) Opioid use disorder, severe, in sustained remission: Code(s): F11.21 - Opioid dependence, in remission Category: Medical Plan: * continue suboxone at current dose * follow up 4 weeks Medications: Changed From buprenorphine-naloxone 8-2 mg (Suboxone) 2 film sublingual DAILY 30 days 60 ea 2RF To buprenorphine-naloxone 8-2 mg (Suboxone) 1 film sublingual BID 30 days 60 ea 0RF
[2023-11-12 10:31] VITALS: BP 130/86; PULSE 98; O2SAT 94
== END 2023-11-12 10:51 | disposition home or self-care (01) ==
PROVIDERS: PCP Internal Medicine; Visit Provider Nurse Practitioner Psychiatric/Mental Health
DX: F11.21 Opioid dependence, in remission (principal)
CPT/HCPCS: 99213

== ENCOUNTER → 2023-11-12 10:29 | Outpatient (BNVA) | payer OTHER, SELFPAY | PROVIDERS: PCP Internal Medicine; Visit Provider Nurse Practitioner Psychiatric/Mental Health | DX: F11.21 Opioid dependence, in remission (principal) | CPT/HCPCS: 99212 ==

== ENCOUNTER 2023-11-23 13:46 | Outpatient (AMB) | payer OTHER, SELFPAY ==
[2023-11-23 13:54] VITALS: BP 130/80; PULSE 70; O2SAT 95; BMI 34.6
--- NOTE | 2023-11-23 13:54 | MHC.PC.OV ---
Vital Signs 11/23/23 13:54 Height 6 ft Weight 255 lb BMI 34.6 BP 130/80 Blood Pressure Location Lt brachial Position Sitting Pulse 70 Pulse Source Pulse Oximeter Pulse Oximetry (%) 95 Oxygen Delivery Method Room Air Intake Visit Reasons: Follow Up Cigarette Stamper Required: No Arborer: Not Required per policy Accompanied by: Self / Same As Patient Allergies metoclopramide [Reglan] Allergy (Unknown, Verified 11/23/23 14:25) Difficulty Breathing metronidazole [From FLAGYL] Allergy (Unknown, Verified 11/23/23 14:25) UNKNOWN haloperidol [From HALDOL] Adverse Reaction (Severe, Verified 11/23/23 14:25) Tardive Diskinesia prochlorperazine [From COMPAZINE] Adverse Reaction (Severe, Verified 11/23/23 14:25) Tardive Diskinesia Medication List - Last Reconciled 11/23/23 by Maxx Roberto MD buprenorphine-naloxone 8-2 mg (Suboxone) 1 film sublingual BID 30 days ipratropium-albuterol 0.5 mg-3 mg(2.5 mg base)/3 mL 3 mL inhalation Q6H PRN Symbicort 160-4.5 mcg/actuation (budesonide-formoterol) 2 puffs inhalation BID 30 days NS Ventolin HFA 90 mcg/actuation (albuterol sulfate) 2 puffs inhalation Q4-6H PRN 30 days NS Tobacco use date assessed: 11/23/23 Dental Screening Dental Screen Date: 11/23/23 Did you have a dental visit in the last 12 months?: Yes Did you have a dental problem in the last 6 months where you did not have access to dental care?: No Was dental information given to patient?: Patient has dentist HPI Follow Up HPI Details Patient comes in today for his follow up visit - he was last seen by me in October 2020 States that he was in group home for a while and [facility] Is currently following up again with Millie Henderson for his Suboxone Tx He used to see Dr. Gonzalez for his asthma but has not been seen since June 2022 States that his asthma was doing well (better than before) on his current Rx but he ran out of his inhalers a couple of weeks ago and needs them refilled [place]EL[place] He denies any headaches or dizziness Denies any chest pains; is starting to experience some chest congestion again lately since he has been out of his inhalers No nausea/vomiting, no abdominal pain No change in bowel habits noted [facility] Medical History (Updated 11/23/23 @ 14:40 by Maxx Roberto MD) Obesity (BMI 30-39.9) Opioid use disorder Elevated blood pressure reading Morbid obesity with BMI of 40.0-44.9, adult History of opioid abuse Asthma Hospital discharge follow-up Referral of patient Opioid use disorder Respiratory failure Asthma GERD (gastroesophageal reflux disease) Pancreatitis HTN (hypertension) Opioid use disorder Surgical History No significant past surgical history Family History Father No problems noted. Mother No problems noted. Brother In good health Son In good health Mental health disorder Son In good health Son In good health Son In good health Other Family history non-contributory Substance use disorder Social History Household Members: Spouse Housing: House Alcohol intake: never Comment: less wheezing Patient Tobacco Use Status: Former Tobacco user Tobacco use type: Cigarette Cigarettes Per Day: 7 service: No Current occupational status: employed Cognitive needs: No Hearing needs: No Vision needs: No Questionnaire PHQ-9 Over the last 2 weeks, how often have you been bothered by any of the following problems? 1. Little interest or pleasure in doing things: not at all 2. Feeling down, depressed, or hopeless: not at all 3. Trouble falling or staying asleep, or sleeping too much: not at all 4. Feeling tired or having little energy: not at all 5. Poor appetite or overeating: not at all 6. Feeling bad about yourself - or that you are a failure or have let yourself or your family down: not at all 7. Trouble concentrating on things, such as reading the newspaper or watching television: not at all 8. Moving or speaking so slowly that other people could have noticed. Or the opposite - being so fidgety or restless that you have been moving around a lot more than usual: not at all 9. Thoughts that you would be better off or of hurting yourself in some way: not at all Total score: 0 Depression Screening Interpretation: Negative Depression Screening Done: Yes 71632 - PHQ-9 Billing: Yes Source: Developed by Drs. Juan Norton, Kendra Mckeon, Noe Hernandez and colleagues, with an educational jayy from [employer]. Thrive Questionnaire Date Thrive assessed: 11/23/23 I am a: Patient What is your living situation today?: I have a steady place to live Within the past 12 months, did the food you bought not last and you didn't have the money to get more?: Never true Within the past 12 months, did you worry whether your food would run out before you got money to buy more?: Never true Do you have trouble paying for medicines?: No Do you have trouble getting transportation to medical appointments?: No Do you have trouble paying your heating and electricity bill?: No Do you have trouble taking care of your child, family member or friend?: No Do you have trouble with day-to-day activities such as bathing, preparing meals, shopping, managing finances, etc.?: No Are you currently unemployed and looking for a job?: No Are you interested in more education?: No Please select the resources that you would like help with: None Currently or been in a relationship where the following occur: no concerns reported THRIVE Score: 0 AUDIT C Alcohol Use Questionnaire (AUDIT-C) 1. How often do you have a drink containing alcohol?: Never 3. How often do you have six or more drinks on one occasion?: Never Total Score: 0 Score Reviewed/Action Taken: Yes MERY-7 AMB Questionnaire MERY-7 Date MERY - 7 assessed: 11/23/23 Feeling nervous, anxious, or on edge: 0 = Not at all Not being able to stop or control worryin = Not at all Worrying too much about different things: 0 = Not at all Trouble relaxin = Not at all Being so restless that it is hard to sit still: 0 = Not at all Becoming easily annoyed or irritable: 0 = Not at all Feeling afraid as if something awful might happen: 0 = Not at all Total MERY-7 score (0-4 normal; 5-9 mild; 10-14 moderate; 15-21 severe): 0 Source: Developed by Drs. Juan Norton, Kendra Mckeon, Noe Hernandez and colleagues, with an educational jayy from [employer]. Review of Systems Const Denies chills, Denies fatigue, Denies fever(s) and Denies headache(s) ENT Denies dysphagia, Denies dizziness, Denies otalgia, Denies headache(s), Denies neck pain, Denies odynophagia and Denies sore throat Card Denies chest pain, Denies palpitations and Reports dyspnea on exertion (mild) Resp Reports chest congestion (increasing lately), Reports cough (occasional), Reports dyspnea on exertion (mild) and Denies wheezing GI Denies abdominal pain, Denies constipation, Denies dysphagia, Denies heartburn, Denies diarrhea, Denies nausea, Denies odynophagia and Denies vomiting Denies dysuria, Denies nocturia and Denies urinary frequency Musc Denies back pain and Denies neck pain Neuro Denies dizziness and Denies headache(s) Endo Denies fatigue and Denies palpitations Aller/Immun Denies wheezing Physical exam (Primary Care) Vital Signs: Last Vital Signs Pulse 70 11/23/23 13:54 BP 130/80 11/23/23 13:54 Pulse Ox 95 11/23/23 13:54 Oxygen Delivery Method Room Air 11/23/23 13:54 BMI result Body Mass Index 34.6 Tobacco/Smoking Status: Tobacco use Status Tobacco use date assessed 11/23/23 11/23/23 13:56 Patient Tobacco Use Status Former Tobacco user 11/23/23 13:56 Tobacco use type Cigarette 11/23/23 13:56 PHQ-9: PHQ-9 Score PHQ-9: Total score 0 11/23/23 13:56 Depression Screening Interpretation: Negative Thrive Assessment: Date of Thrive Assessment Date Thrive assessed 11/23/23 11/23/23 13:56 Currently or been in a relationship where the following occur: no concerns reported Const General: no acute distress and alert HENMT Ears: TM's normal bilaterally and EAC's normal Throat: Yes posterior oropharynx normal and Yes tonsils normal (no TP congestion) Neck Neck: Yes no lymphadenopathy and Yes supple Thyroid: Thyroid normal Resp Auscultation: no rales, rhonchi (occasional) throughout, no wheezes and diminished lung sounds (slightly) bilateral Cardio Rate: regular rate Rhythm: regular rhythm Heart sounds: no murmurs GI Palpation (GI): Soft to palpation and nontender Auscultation: normal bowel sounds General: Yes no CVA tenderness Back/Spine/Pelvis Back: no CVA tenderness Thoracic/Lumbar Spine: No lumbar spinal tenderness Skin Rashes: no rashes Extrem General: Yes no clubbing, cyanosis or edema Assessment and Plan Assessment & Plan (1) Severe persistent allergic asthma: Code(s): J45.50 - Severe persistent asthma, uncomplicated Plan: Continue Symbicort 160-4.5 mcg 2 inhalations BID and ALbuterol HFA 2 inhalations Q 6 hours PRN Will refer him back to pulmonary [place] [facility] [place] and continuing management of his asthma (2) Opioid use disorder, severe, in sustained remission: Code(s): F11.21 - Opioid dependence, in remission Plan: Continue Suboxone 8-2 mg 1 film sublingually BID Follow up with Millie Henderson as scheduled (3) Obesity (BMI 30-39.9): Code(s): E66.9 - Obesity, unspecified Plan: Reinforced diet/exercise as tolerated/lose weight Plan To return in 4 months for his annual physical examination Patient is advised to get his labs done about 1 week before he comes in for his physical exam in a few months Orders: Orders Complete Blood Count Auto Diff 4 Months D64.9 - Anemia, unspecified, Z00.00 - Encounter for general adult medical examination without abnormal findings UA CC w/rflx Micro + Cult 4 Months R30.0 - Dysuria, Z00.00 - Encounter for general adult medical examination without abnormal findings Hemoglobin A1c 4 Months R73.9 - Hyperglycemia, unspecified, Z00.00 - Encounter for general adult medical examination without abnormal findings Comprehensive [place]. Panel Fast 4 Months E78.00 - Pure hypercholesterolemia, unspecified, Z00.00 - Encounter for general adult medical examination without abnormal findings Lipid Panel 4 Months E78.00 - Pure hypercholesterolemia, unspecified, Z00.00 - Encounter for general adult medical examination without abnormal findings TSH reflex Free T4 4 Months E78.00 - Pure hypercholesterolemia, unspecified, Z00.00 - Encounter for general adult medical examination without abnormal findings Vitamin D 25-OH Total 4 Months E55.9 - Vitamin D deficiency, unspecified, Z00.00 - Encounter for general adult medical examination without abnormal findings Referrals Pulmonary Medicine Referral J45.50 - Severe persistent asthma, uncomplicated Medications: Refilled ipratropium-albuterol 0.5 mg-3 mg(2.5 mg base)/3 mL 3 mL inhalation Q6H PRN 540 mL 1RF for wheezing Symbicort 160-4.5 mcg/actuation (budesonide-formoterol) 2 puffs inhalation BID 30 days 10.2 grams 6RF NS Ventolin HFA 90 mcg/actuation (albuterol sulfate) 2 puffs inhalation Q4-6H 30 days PRN 1 ea 6RF shortness of breath or wheezing NS Coding Level of Care Code Est Pt Level 3 (28103) Diagnoses Severe persistent allergic asthma J45.50 Opioid use disorder, severe, in sustained remission F11.21 Obesity (BMI 30-39.9) E66.9
== END 2023-11-23 14:36 | disposition home or self-care (01) ==
PROVIDERS: PCP Internal Medicine; Visit Provider Internal Medicine
DX: J45.50 Severe persistent asthma, uncomplicated (principal); F11.21 Opioid dependence, in remission; E66.9 Obesity, unspecified; Z68.34 Body mass index [BMI] 34.0-34.9, adult
CPT/HCPCS: 99213

== ENCOUNTER 2023-12-12 13:40 | Outpatient (AMB) | payer OTHER, SELFPAY ==
--- NOTE | 2023-12-12 13:36 | A.OFFVISCC_ITS ---
Vital Signs 12/12/23 13:48 BP 120/84 Blood Pressure Location Rt brachial Position Sitting Pulse 68 Pulse Source Pulse Oximeter Pulse Oximetry (%) 95 Oxygen Delivery Method Room Air Intake Visit Reasons: MAT Allergies metoclopramide [Reglan] Allergy (Unknown, Verified 12/12/23 13:36) Difficulty Breathing metronidazole [From FLAGYL] Allergy (Unknown, Verified 12/12/23 13:36) UNKNOWN haloperidol [From HALDOL] Adverse Reaction (Severe, Verified 12/12/23 13:36) Tardive Diskinesia prochlorperazine [From COMPAZINE] Adverse Reaction (Severe, Verified 12/12/23 13:36) Tardive Diskinesia HPI HPI MAT: Details: Patient presents for follow up 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 Mother No problems noted. Brother In good health Son In good health Mental health disorder Son In good health Son In good health Son In good health Other Family history non-contributory Substance use disorder Social History Household Members: Spouse Housing: House Alcohol intake: never Comment: less wheezing Patient Tobacco Use Status: Former Tobacco user Tobacco use type: Cigarette Cigarettes Per Day: 7 service: No Current occupational status: employed Cognitive needs: No Hearing needs: No Vision needs: No Review of Systems Const Reports as per HPI and Reports no additional complaints Physical Exam Vital Signs: Last Vital Signs Pulse 68 12/12/23 13:48 BP 120/84 12/12/23 13:48 Pulse Ox 95 12/12/23 13:48 Oxygen Delivery Method Room Air 12/12/23 13:48 Const Other: Well developed, well nourished male, in NAD. General: cooperative, healthy appearing, comfortable, no acute distress, well developed and alert Nutritional Appearance: average body habitus Orientation/consciousness: patient oriented x3 Limitations: no limitations Neuro General: patient oriented x3 Psych Appearance: well kempt Mental Status: mental status grossly normal Speech and movement: Normal speech and movement present Affect: normal affect Attitude: cooperative Thought process: Normal thought process present Thought content: Normal thought content present Insight: Good insight present (Psych) Judgement: Good judgement present (Psych) Assessment & Plan Assessment & Plan (1) Opioid use disorder, severe, in sustained remission: Code(s): F11.21 - Opioid dependence, in remission Category: Medical Plan: * continue suboxone at current dose * follow up 3 months Medications: Refilled buprenorphine-naloxone 8-2 mg (Suboxone) 1 film sublingual BID 60 ea 2RF 30 days
[2023-12-12 13:48] VITALS: BP 120/84; PULSE 68; O2SAT 95
== END 2023-12-12 14:13 | disposition home or self-care (01) ==
PROVIDERS: PCP Internal Medicine; Visit Provider Nurse Practitioner Psychiatric/Mental Health
DX: F11.21 Opioid dependence, in remission (principal)
CPT/HCPCS: 99213

== ENCOUNTER → 2023-12-12 13:40 | Outpatient (BNVA) | payer OTHER, SELFPAY | PROVIDERS: PCP Internal Medicine; Visit Provider Nurse Practitioner Psychiatric/Mental Health | DX: F11.21 Opioid dependence, in remission (principal) | CPT/HCPCS: 99212 ==

== ENCOUNTER 2023-12-31 03:12 | Emergency (ER) | payer OTHER, SELFPAY ==
--- NOTE | ~2023-12-31 | XR_ITS ---
EXAMINATION: XR CHEST CLINICAL INFORMATION: Trauma. COMPARISON: 06/16/2020. TECHNIQUE: 2 views of the chest were obtained. FINDINGS: The cardiomediastinal silhouette is stable. There is no focal lung consolidation or evidence for significant pleural effusion. There is a posterior lateral right ninth rib fracture. The soft tissues are unremarkable. XR/XR chest 2V IMPRESSION: No evidence for active cardiopulmonary disease. Posterior lateral right ninth rib fracture needs correlation.
[2023-12-31 03:19] VITALS: BP 125/76; PULSE 91; RESP 18; TEMP 37.2; O2SAT 91; BMI 31.9
--- NOTE | 2023-12-31 03:58 | ED_ITS ---
HPI - General Adult General Chief complaint: General Medical Stated complaint: pain on right side abdomen Time Seen by Provider: 12/31/23 03:50 History of Present Illness ED Provider: Birgit LOPEZ narrative: The patient is a 43-year-old male who says that he has a long history of asthma and has been in the hospital a lot. His hospital has been better controlled over the last 2 years than previously but it has started bothering him again over the last few weeks and much more so over the last 2 days. He therefore came to the emergency room because he was so short of breath. He has not had a fever but he has had a cough and has had sputum production that is yellow brown.. He has not been on prednisone recently. The patient says that he had a mild exacerbation of his asthma 2 weeks ago. At that time he had a lot of coughing and developed pain on the right side of his chest that was worse with coughing and moving his right arm. This pain has gotten worse again with his more recent symptoms. Related Data Previous Rx's ?Medication ?Instructions ?Recorded Symbicort 160 mcg-4.5 2 puff inhalation BID 30 days 11/23/23 mcg/actuation HFA aerosol inhaler #10.2 grams (budesonide-formoterol) Ventolin HFA 90 mcg/actuation 2 puff inhalation Q4-6H PRN 11/23/23 aerosol inhaler (albuterol sulfate) shortness of breath or wheezing 30 days #1 ea ipratropium 0.5 mg-albuterol 3 mg 3 ml inhalation Q6H PRN for 11/23/23 (2.5 mg base)/3 mL nebulization wheezing #540 mL soln buprenorphine 8 mg-naloxone 2 mg 1 film sublingual BID 30 days #60 12/12/23 sublingual film (Suboxone) ea azithromycin 250 mg tablet 250 mg PO DAILY 4 days #4 tabs 12/31/23 prednisone 20 mg tablet 20 mg PO DAILY #12 tabs 12/31/23 Allergies Allergy/AdvReac Type Severity Reaction Status Date / Time metoclopramide [Reglan] Allergy Unknown Difficulty Verified 12/31/23 03:20 Breathing metronidazole [From FLAGYL] Allergy Unknown UNKNOWN Verified 12/31/23 03:20 haloperidol [From HALDOL] AdvReac Severe Tardive Verified 12/31/23 03:20 Diskinesia prochlorperazine AdvReac Severe Tardive Verified 12/31/23 03:20 [From COMPAZINE] Diskinesia Review of Systems 2 Review of Systems: Yes all other systems are reviewed and are negative [facility] Past Medical History Medical History (Updated 12/31/23 @ 05:09 by Joseph Genao MD) Obesity (BMI 30-39.9) Opioid use disorder Elevated blood pressure reading Morbid obesity with BMI of 40.0-44.9, adult History of opioid abuse Asthma Hospital discharge follow-up Referral of patient Opioid use disorder Respiratory failure Asthma GERD (gastroesophageal reflux disease) Pancreatitis HTN (hypertension) Opioid use disorder Surgical History No significant past surgical history Family History Family History Father No problems noted. Mother No problems noted. Brother In good health Son In good health Mental health disorder Son In good health Son In good health Son In good health Other Family history non-contributory Substance use disorder Social History Social History Household Members: Spouse Housing: House Alcohol intake: never Comment: less wheezing Patient Tobacco Use Status: Former Tobacco user Tobacco use type: Cigarette Cigarettes Per Day: 7 Smoked in Last 30 Days: Yes Use of substances other than those prescribed or required for medical reasons: No Advance Directives: No Advance Directives Information Provided: No service: No Current occupational status: employed Cognitive needs: No Hearing needs: No Vision needs: No Physical Exam ED Vital Signs: Vital Signs - 24 hr 12/31/23 03:19 12/31/23 04:05 Temperature 99.0 F Pulse Rate 91 85 Respiratory Rate 18 18 Blood Pressure 125/76 Pulse Oximetry 91 L Oxygen Delivery Method Room Air BMI result Body Mass Index 31.9 Const Other: The patient is awake and alert. He looks somewhat short of breath. HENMT Other: Face is symmetrical. Mucous membranes moist. Eyes Other: Pupils are round equal, conjunctivae are clear Neck Other: No JVD Chest Other: There is right-sided chest wall tenderness at about the level of the 8th rib at the anterior axillary line. Palpation seems to reproduce his pain very much. Resp Other: There was mild increased work of breathing with diminished air entry and inspiratory and expiratory wheezes bilaterally Cardio Rate: regular rate Rhythm: regular rhythm Heart sounds: S1 normal heart sound present and S2 normal heart sound present GI Other: Abdomen is soft and nontender Skin Other: Skin is dry and unremarkable Neuro Other: The patient is awake and alert with a normal mental status. Cranial nerves are grossly intact. He moves extremities normally. His gait is normal. He is grossly neurologically intact. Extrem Other: No calf swelling or tenderness. No asymmetry no edema. Medications Administered Discontinued Medications Generic Name Dose Route Start Last Admin Trade Name Inocencioq PRN Reason Stop Dose Admin Albuterol Sulfate 2.5 mg/ 0 mg 12/31/23 04:01 12/31/23 04:04 Albuterol/Ipratropium 3 ml INHALE 12/31/23 04:02 2.5 dose ONCE ONE Administration Prednisone 60 mg 12/31/23 03:57 12/31/23 04:06 Prednisone 20 Mg Tablet PO 12/31/23 03:58 60 mg ONCE ONE Administration Medical Decision Making Medical Decision Making [facility] Narrative: The patient is a 43-year-old male with a history of asthma that has been well controlled recently. He is on Symbicort. He presents tonight with a significant worsening of his asthma that is the 1st time in a long time that he has had such shortness of breath. He has had some cough and sputum associated with the exacerbation on this occasion. He has not had a fever. He does not look toxic. He is also having some right-sided chest pain that seems to be chest wall pain. I believe he probably had coughing a couple of weeks ago that caused pain in the musculature of the right chest wall. I do not have any suspicion for a pulmonary embolism. The patient was treated with bronchodilators and prednisone with significant improvement. He felt he was well enough for discharge. He will be prescribed a course of prednisone and azithromycin. Lab Data 12/31/23 04:05 12/31/23 04:05 Labs: Lab Results 12/31/23 Range/Units 04:05 WBC 11.1 H (4.8-10.8) X10*3/uL RBC 4.86 (4.60-5.80) X10*6/uL Hgb 13.9 L (14.0-18.0) g/dl Hct 42.1 (42.0-52.0) % MCV 86.6 (80.0-98.0) fL MCH 28.6 (27.0-33.0) pg MCHC 33.0 (31.0-36.0) g/dl RDW 13.2 (11.0-16.0) % Plt Count 276 (160-400) X10*3/uL MPV 9.5 (9.4-12.4) fL Immature Gran % (Auto) 0.3 (0.0-0.4) % Neut % (Auto) 74.7 H (45-73) % Lymph % (Auto) 8.1 L (20-40) % [place] % (Auto) 6.3 (2-11) % Eos % (Auto) 9.6 H (0-4) % Baso % (Auto) 1.0 (0-2) % Lymph # (Auto) 0.9 L (1.2-4.9) X10*3/uL [place] # (Auto) 0.7 (0.1-1.2) X10*3/uL Eos # (Auto) 1.1 H (0.0-0.4) X10*3/uL Baso # (Auto) 0.1 (0.0-0.2) X10*3/uL Abs Immat Gran (auto) 0.03 (0.00-0.03) X10*3/uL Absolute Neuts (auto) 8.3 (2.0-8.3) x10*3/uL Absolute Nucleated RBC 0.000 (0.0-0.012) X10*3/uL Nucleated RBC % (auto) 0.0 (0.0-0.2) /100WBC Sodium 145 (135-145) mmol/L Potassium 3.9 (3.3-5.1) mmol/L Chloride 107 (96-108) mmol/L Carbon Dioxide 26 (22-29) mmol/L Anion Gap 16 (12-20) BUN 26 H (9-16) mg/dL Creatinine 0.99 (0.5-1.4) mg/dL Estim Creat Clear Calc 122.6 Estimated GFR > 60 Random Glucose 113 (60-115) mg/dL Calcium 9.1 D (8.4-10.2) mg/dL Total Bilirubin 0.2 (0.0-1.0) mg/dL AST 53 H (5-37) U/L ALT 55 H (0-40) U/L Alkaline Phosphatase 101 (39-117) U/L Total Protein 8.0 (6.5-8.0) g/dL Albumin 3.9 (3.5-5.0) g/dL Discharge Plan Discharge Clinical Impression: Acute asthma exacerbation Patient Disposition: Home, Self-Care Additional Instructions: Please take the prednisone prescribed daily until done. Also take the azithromycin as prescribed. 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 Also, new evidence shows that when a person with asthma starts developing worsening symptoms they do better if they use Symbicort more frequently rather than using an albuterol rescue inhaler. Therefore in the future if you start feeling that your asthma is getting worse you should use the Symbicort up to 2 puffs every 4 hours as needed instead of using the rescue albuterol inhaler. If at any point you were significantly worse please return to the emergency department. Prescriptions: New prednisone 20 mg tablet 20 mg PO DAILY Qty: 12 0RF Rx Instructions: Take 3 tablets by mouth daily for 2 days then take 2 tablets by mouth daily for 3 days. azithromycin 250 mg tablet 250 mg PO DAILY 4 Days Qty: 4 0RF Rx Instructions: start on day 2 of therapy No Action budesonide-formoterol [Symbicort] 160-4.5 mcg/actuation HFA aerosol inhaler 2 puff inhalation BID 30 Days Qty: 10.2 6RF albuterol sulfate [Ventolin HFA] 90 mcg/actuation HFA aerosol inhaler 2 puff inhalation Q4-6H PRN (Reason: shortness of breath or wheezing) 30 Days Qty: 1 6RF ipratropium-albuterol 0.5 mg-3 mg(2.5 mg base)/3 mL solution for nebulization 3 ml inhalation Q6H PRN (Reason: for wheezing) Qty: 540 1RF buprenorphine-naloxone [Suboxone] 8-2 mg film 1 film sublingual BID 30 Days Qty: 60 2RF Referrals: Jack Gonzalez MD [Physician] - (worsening asthma) Print Language: Lithuanian
[2023-12-31] MEDS: Albuterol Sulfate 2.5 MG, Albuterol/Iprat 2.5/0.5MG 3 ML 3 ML INHALE (04:04)
[2023-12-31 04:05] VITALS: PULSE 85; RESP 18; O2SAT 93
[2023-12-31] MEDS: predniSONE 20 MG TABLET 60 MG PO (04:06)
[2023-12-31 04:10] LABS: Basophils Absolute Auto 0.1 X10*3/uL (0.0-0.2); Eosinophils Absolute Auto 1.1 X10*3/uL (0.0-0.4); Eosinophils Percent Auto 9.6 % (0-4); Hematocrit 42.1 % (42.0-52.0); Hemoglobin 13.9 g/dl (14.0-18.0); Imm Gran Abs Auto 0.03 X10*3/uL (0.00-0.03); Imm Gran Pct Auto 0.3 % (0.0-0.4); Lymphocytes Absolute Auto 0.9 X10*3/uL (1.2-4.9); Lymphocytes Percent Auto 8.1 % (20-40); MANUAL DIFF FLAG NO; Mean Corpuscular Hemoglobin 28.6 pg (27.0-33.0); Mean Corpuscular Volume 86.6 fL (80.0-98.0); Mean Platelet Volume 9.5 fL (9.4-12.4); Monocytes Absolute Auto 0.7 X10*3/uL (0.1-1.2); Monocytes Percent Auto 6.3 % (2-11); Neutrophils Absolute Auto 8.3 x10*3/uL (2.0-8.3); Neutrophils Percent Auto 74.7 % (45-73); Platelet Count 276 X10*3/uL (160-400); Red Blood Count 4.86 X10*6/uL (4.60-5.80); Red Cell Distribution Width 13.2 % (11.0-16.0); White Blood Count 11.1 X10*3/uL (4.8-10.8)
[2023-12-31 04:24] LABS: Alanine Aminotransferase 55 U/L (0-40); Albumin Level 3.9 g/dL (3.5-5.0); Alkaline Phosphatase 101 U/L (39-117); Anion Gap 16 (12-20); Aspartate Amino Transferase 53 U/L (5-37); Bilirubin Total 0.2 mg/dL (0.0-1.0); Blood Urea Nitrogen 26 mg/dL (9-16); Calcium 9.1 mg/dL (8.4-10.2); Carbon Dioxide 26 mmol/L (22-29); Chloride 107 mmol/L (96-108); Creatinine Clr Calc Pharmacy 122.6; Estimated Glomerular Filt Rate > 60; Glucose Random 113 mg/dL (60-115); Potassium 3.9 mmol/L (3.3-5.1); Sodium 145 mmol/L (135-145)
[2023-12-31] MEDS: Azithromycin 500 MG TABLET PO (05:20)
[2023-12-31 05:24] VITALS: BP 107/71; PULSE 100; RESP 14; TEMP 36.4; O2SAT 95
[2023-12-31 06:08] VITALS: BP 107/71; PULSE 100; RESP 14; TEMP 36.4; O2SAT 95
== END 2023-12-31 06:08 | disposition home or self-care (01) ==
PROVIDERS: Emergency Provider Emergency Medicine; PCP Internal Medicine
DX: J45.901 Unspecified asthma with (acute) exacerbation (principal); R07.81 Pleurodynia; Z79.899 Other long term (current) drug therapy
CPT/HCPCS: 36415; 71046; 80053; 85025; 94640; 99284

== ENCOUNTER 2024-01-03 06:33 | Emergency (ER) | payer OTHER, SELFPAY ==
--- NOTE | ~2024-01-03 | CT_ITS ---
EXAMINATION: CT CHEST WITHOUT CONTRAST CLINICAL INFORMATION: Worsening pain in the ribs, fracture COMPARISON: 05/25/2022 and chest radiograph 12/31/2023 TECHNIQUE: Multidetector volumetric CT imaging of the chest was done. Axial MIP volume rendering provided. Sagittal and coronal reformatted images were obtained. This CT examination was performed using dose optimization techniques as appropriate, variously including the following: *Automated exposure control *Adjustment of mA and/or kV according to patient size (this includes techniques or standardized protocols for targeted exams where dose is matched to indication/reason for exam; i.e. extremities or head) *Use of iterative reconstruction technique DLP: 407 mGy-cm FINDINGS: SECONDS HANDLER: Unremarkable LUNGS: Stable benign-appearing nodule seen in the right lung, subpleural right upper lobe measured 0.3 cm image 16 series 4, 0.2 cm nodule seen on image 24, 0.2 cm nodule seen on image 28, 0.3 cm nodule in the right lower lobe seen on image 34, 0.3 cm nodule seen in the right lower lobe on image 43 and 0.2 cm the left lower lobe nodule seen on image 28. MEDIASTINUM: Unremarkable CORONARY ARTERY CALCIFICATION: Mild PLEURA: There is no pleural effusion. No pleural mass or thickening. AXILLA: No lymphadenopathy. UPPER ABDOMEN: Unremarkable. OSSEOUS STRUCTURES: : Ribs #8 and 9 on the right revealed uncomplicated fractures along the posterior axillary line and associated with mild pleural thickening CT/CT chest wo IV con IMPRESSION: 1. Ribs fractures on the right. 2.Stable benign-appearing lung nodules. 3. Pleural thickening adjacent to the fractured ribs Fleischner guidelines were followed.
--- NOTE | 2024-01-03 07:32 | ED_ITS ---
HPI - General Adult General Stated complaint: RIB PAIN Time Seen by Provider: 01/03/24 07:23 Source: patient and old records reviewed Mode of arrival: ambulatory Limitations: no limitations History of Present Illness ED Provider: DEL LOPEZ narrative: 43 yo male well known to us has hx of opiate use disorder / asthma just seen on 12/30 for asthma and DC home CXR at that time showed R lateral 9th rib fracture he comes back today not knowing he had rib fracture but went [facility] in between and felt a severe pop on that side now with severe pain after coughing and moving. MD complaint: rib pain Onset (ago): week(s) (5) Location: chest Radiation: non-radiation Severity: severe Quality: stabbing Pain Consistency: constant Relieving factors: immobilization Exacerbating factors: movement Associated symptoms: cough Treatments prior to arrival: none Related Data Previous Rx's ?Medication ?Instructions ?Recorded Symbicort 160 mcg-4.5 2 puff inhalation BID 30 days 11/23/23 mcg/actuation HFA aerosol inhaler #10.2 grams (budesonide-formoterol) Ventolin HFA 90 mcg/actuation 2 puff inhalation Q4-6H PRN 11/23/23 aerosol inhaler (albuterol sulfate) shortness of breath or wheezing 30 days #1 ea ipratropium 0.5 mg-albuterol 3 mg 3 ml inhalation Q6H PRN for 11/23/23 (2.5 mg base)/3 mL nebulization wheezing #540 mL soln buprenorphine 8 mg-naloxone 2 mg 1 film sublingual BID 30 days #60 12/12/23 sublingual film (Suboxone) ea azithromycin 250 mg tablet 250 mg PO DAILY 4 days #4 tabs 12/31/23 prednisone 20 mg tablet 20 mg PO DAILY #12 tabs 12/31/23 lidocaine 5 % topical patch 1 patch topical DAILY #30 ea 01/03/24 morphine 15 mg immediate release 15 mg PO Q6H PRN pain #12 tabs 01/03/24 tablet Allergies Allergy/AdvReac Type Severity Reaction Status Date / Time metoclopramide [Reglan] Allergy Unknown Difficulty Verified 12/31/23 03:20 Breathing metronidazole [From FLAGYL] Allergy Unknown UNKNOWN Verified 12/31/23 03:20 haloperidol [From HALDOL] AdvReac Severe Tardive Verified 12/31/23 03:20 Diskinesia prochlorperazine AdvReac Severe Tardive Verified 12/31/23 03:20 [From COMPAZINE] Diskinesia Review of Systems Review of Systems: Constitutional : No Weight loss, No Fever, No Chills ENT/Mouth : No sore throat, No Rhinorrhea Eyes: No Eye Pain, No Swelling Cardiovascular : pos Chest Pain, no SOB, no Dyspnea on Exertion, No Orthopnea, No Edema, No Palpitations Respiratory : pos Cough, No Sputum Gastrointestinal : no Nausea, No Vomiting, No Diarrhea, No abdominal Pain, No Hematochezia, No Melena Genitourinary : No Dysuria, No Urinary Frequency Musculoskeletal : No joint pain, No Myalgias, No Joint Swelling Skin : No Skin Lesions, No rash Neuro : No Weakness, No Numbness, No Dizziness, No Headache Psych : No Anxiety/Panic, No Depression All other systems reviewed and are negative [facility] Past Medical History Attestation statement: The following information was validated with the patient. Source: old records reviewed Medical History Obesity (BMI 30-39.9) Opioid use disorder Elevated blood pressure reading Morbid obesity with BMI of 40.0-44.9, adult History of opioid abuse Asthma Hospital discharge follow-up Referral of patient Opioid use disorder Respiratory failure Asthma GERD (gastroesophageal reflux disease) Pancreatitis HTN (hypertension) Opioid use disorder Surgical History No significant past surgical history Family History Family History Father No problems noted. Mother No problems noted. Brother In good health Son In good health Mental health disorder Son In good health Son In good health Son In good health Other Family history non-contributory Substance use disorder Social History Social History Household Members: Spouse Housing: House Alcohol intake: never Comment: less wheezing Patient Tobacco Use Status: Former Tobacco user Tobacco use type: Cigarette Cigarettes Per Day: 7 Advance Directives: No Advance Directives Information Provided: No service: No Current occupational status: employed Cognitive needs: No Hearing needs: No Vision needs: No Physical Exam ED Vital Signs: Vital Signs - 24 hr 01/03/24 10:52 Temperature 98.0 F Pulse Rate 64 Respiratory Rate 18 Blood Pressure 139/94 H Pulse Oximetry 94 Oxygen Delivery Method Room Air Appearance: Alert. Oriented X3. No acute distress. Eyes: Pupils equal, round and reactive to light. ENT: Pharynx normal. Neck: Normal inspection. Neck supple. CVS: Normal heart rate and rhythm. Pulses normal. Chest: ttp along R lateral lower ribs Respiratory: No respiratory distress. Breath sounds mild wheezes noted Abdomen: Soft and nontender. Skin: Skin warm and dry. Normal skin color. Normal skin turgor. Extremities: No lower extremity edema. No calf ttp Neuro: Oriented X 3. No motor deficit. No sensory deficit. Course Course Course Narrative: patinet left prior to CT scan results - presumed 9th rib fracture Medications Administered Discontinued Medications Generic Name Dose Route Start Last Admin Trade Name Freq PRN Reason Stop Dose Admin Morphine Sulfate 15 mg 01/03/24 08:28 01/03/24 08:36 Morphine Sulfate Immed Release 15 Mg Tablet PO 01/03/24 08:29 15 mg ONCE ONE Administration Medical Decision Making Medical Decision Making [facility] Narrative: 43 yo male well known to us has hx of opiate use disorder / asthma here with c/o R rib pain with known R 9th rib fracture now with worsening pain after going to [facility] he did not know he had a rib fracture - at this time CT chest ordered for worsening pathology/injury. Differential Diagnosis Differential Diagnoses: The differential diagnosis associated with the presentation includes rib fractures, pleurisy Admission/Observation Consideration of admission/observation: Escalation of care including admission/observation considered no hypoxia not toxic can be managed as outpatient Consult Healthcare Provider notified his suboxone provider about Rx prescription Lab Data [facility] Lab Attestation statement: I reviewed the patient's lab results. Independent Interpretation I performed an independent interpretation of an: Plain X-Ray and CT Scan (8th rib fractures) Radiology Impression Discussion of test interpretation with radiology: I have reviewed the radiologist's reading. External Record Review External record reviewed: Inpatient record and Outpatient record Prescription Management I considered prescription management with: Pain Medication and Other Discharge Plan Discharge Clinical Impression: Closed rib fracture Qualifiers: Encounter type: initial encounter Rib fracture type: single rib Laterality: right Qualified Code(s): S22.31XA - Fracture of one rib, right side, initial encounter for closed fracture Patient Disposition: Home, Self-Care Instructions: Rib Fracture (ED) Additional Instructions: return for fevers, worsening breathing, bloody sputum or any other issues follow up with Millie Henderson to manage pain and suboxone Prescriptions: New lidocaine 5 % adhesive patch,medicated 1 patch topical DAILY Qty: 30 0RF Rx Instructions: leave on most painful area for up to 12 hrs morphine 15 mg tablet 15 mg PO Q6H PRN (Reason: pain) Qty: 12 0RF Rx Instructions: Partial Fill upon patient request. for rib fracture No Action prednisone 20 mg tablet 20 mg PO DAILY Qty: 12 0RF Rx Instructions: Take 3 tablets by mouth daily for 2 days then take 2 tablets by mouth daily for 3 days. azithromycin 250 mg tablet 250 mg PO DAILY 4 Days Qty: 4 0RF Rx Instructions: start on day 2 of therapy budesonide-formoterol [Symbicort] 160-4.5 mcg/actuation HFA aerosol inhaler 2 puff inhalation BID 30 Days Qty: 10.2 6RF albuterol sulfate [Ventolin HFA] 90 mcg/actuation HFA aerosol inhaler 2 puff inhalation Q4-6H PRN (Reason: shortness of breath or wheezing) 30 Days Qty: 1 6RF ipratropium-albuterol 0.5 mg-3 mg(2.5 mg base)/3 mL solution for nebulization 3 ml inhalation Q6H PRN (Reason: for wheezing) Qty: 540 1RF buprenorphine-naloxone [Suboxone] 8-2 mg film 1 film sublingual BID 30 Days Qty: 60 2RF Interventions: ED Discharge Assessment Last Done: 01/03/24 10:52 Discharge Date/Time: 01/03/24 10:53 Print Language: Urdu
[2024-01-03] MEDS: Morphine Sulfate Immed Release 15 MG TABLET PO (08:36)
[2024-01-03 10:52] VITALS: BP 139/94; PULSE 64; RESP 18; TEMP 36.7; O2SAT 94
== END 2024-01-03 10:53 | disposition home or self-care (01) ==
PROVIDERS: Emergency Provider Emergency Medicine; PCP Internal Medicine
DX: S22.31XA Fracture of one rib, right side, initial encounter for closed fracture (principal); X50.3XXA Overexertion from repetitive movements, initial encounter; R05.9 Cough, unspecified; F11.20 Opioid dependence, uncomplicated; Z79.899 Other long term (current) drug therapy; I10 Essential (primary) hypertension; J45.909 Unspecified asthma, uncomplicated; Z87.891 Personal history of nicotine dependence; Y93.I1 Activity, roller coaster riding; Y92.831 Amusement park as the place of occurrence of the external cause; Y99.9 Unspecified external cause status
CPT/HCPCS: 71250; 99282; 99284

== ENCOUNTER 2024-03-05 15:10 | Outpatient (AMB) | payer OTHER, SELFPAY ==
--- NOTE | 2024-03-05 15:22 | A.OFFVISCC_ITS ---
Intake Visit Reasons: MAT Allergies metoclopramide [Reglan] Allergy (Unknown, Verified 12/31/23 03:20) Difficulty Breathing metronidazole [From FLAGYL] Allergy (Unknown, Verified 12/31/23 03:20) UNKNOWN haloperidol [From HALDOL] Adverse Reaction (Severe, Verified 12/31/23 03:20) Tardive Diskinesia prochlorperazine [From COMPAZINE] Adverse Reaction (Severe, Verified 12/31/23 03:20) Tardive Diskinesia HPI HPI MAT: Details: Patient presents for follow up Currently prescribed Suboxone 8mg BID Doing well with recovery still working PT [facility] Medical History Obesity (BMI 30-39.9) Opioid use disorder Elevated blood pressure reading Morbid obesity with BMI of 40.0-44.9, adult History of opioid abuse Asthma Hospital discharge follow-up Referral of patient Opioid use disorder Respiratory failure Asthma GERD (gastroesophageal reflux disease) Pancreatitis HTN (hypertension) Opioid use disorder Surgical History No significant past surgical history Family History Father No problems noted. Mother No problems noted. Brother In good health Son In good health Mental health disorder Son In good health Son In good health Son In good health Other Family history non-contributory Substance use disorder Social History Household Members: Spouse Housing: House Alcohol intake: never Comment: less wheezing Patient Tobacco Use Status: Former Tobacco user Tobacco use type: Cigarette Cigarettes Per Day: 7 service: No Current occupational status: employed Cognitive needs: No Hearing needs: No Vision needs: No Review of Systems Const Reports as per HPI and Reports no additional complaints Physical Exam Const Other: Well developed, well nourished male, in NAD. General: cooperative, healthy appearing, comfortable, no acute distress, well developed and alert Nutritional Appearance: average body habitus Orientation/consciousness: patient oriented x3 Limitations: no limitations Neuro General: patient oriented x3 Psych Appearance: well kempt Mental Status: mental status grossly normal Speech and movement: Normal speech and movement present Affect: normal affect Attitude: cooperative Thought process: Normal thought process present Thought content: Normal thought content present Insight: Good insight present (Psych) Judgement: Good judgement present (Psych) Assessment & Plan Assessment & Plan (1) Opioid use disorder, severe, in sustained remission: Code(s): F11.21 - Opioid dependence, in remission Category: Medical Plan: * continue suboxone at current dose * follow up 3 months Medications: Discontinued azithromycin start on day 2 of therapy Discontinued Reason: Patient Completed Course 250 mg PO DAILY 4 days 4 tabs 0RF lidocaine 5% leave on most painful area for up to 12 hrs Discontinued Reason: Order 1 patch topical DAILY 30 ea 0RF morphine Partial Fill upon patient request. for rib fracture Discontinued Reason: Order 15 mg PO Q6H PRN 12 tabs 0RF pain
== END 2024-03-05 15:41 | disposition home or self-care (01) ==
PROVIDERS: PCP Internal Medicine; Visit Provider Nurse Practitioner Psychiatric/Mental Health
DX: F11.21 Opioid dependence, in remission (principal)
CPT/HCPCS: 99213

== ENCOUNTER → 2024-03-05 15:10 | Outpatient (BNVA) | payer OTHER, SELFPAY | PROVIDERS: PCP Internal Medicine; Visit Provider Nurse Practitioner Psychiatric/Mental Health | DX: F11.21 Opioid dependence, in remission (principal); Z51.81 Encounter for therapeutic drug level monitoring | CPT/HCPCS: 99212 ==

== ENCOUNTER 2024-05-02 06:27 | Emergency (ER) | payer OTHER, SELFPAY ==
[2024-05-02 06:37] VITALS: BP 113/58; PULSE 83; RESP 20; TEMP 36.6; O2SAT 96; BMI 31.9
--- NOTE | 2024-05-02 06:49 | ED_ITS ---
HPI - Dental/Oral General Chief complaint: Dental/Oral Stated complaint: tooth pain Time Seen by Provider: 05/02/24 06:42 Source: patient Mode of arrival: ambulatory Limitations: no limitations History of Present Illness ED Provider: Roxane Palmer PA-C HPI Narrative: 43 yo male presents to the ER for evaluation of right lower dental pain for the last 2 days. He reports having a crack in the tooth and losing a filling in it. He states he also has a right lower tooth next to it that lost its crown. He reports severe pain, minimal relief with ibuprofen and tylenol. he also has been using orajel. he has a dentist but has not been in contact with them yet. he denies any facial swelling, no difficulty opening his jaw. no pain with chewing. MD Complaint: tooth pain Location: Tooth # (31) Onset (ago): day(s) (2) Duration: constant Severity: severe Severity scale (1-10): 10 Relieving factors: nothing Exacerbating factors: nothing Context: history of dental caries, trauma (mechanism) and poor dental care Treatment prior to arrival: topical analgesic Related Data Previous Rx's ?Medication ?Instructions ?Recorded Symbicort 160 mcg-4.5 2 puff inhalation BID 30 days 11/23/23 mcg/actuation HFA aerosol inhaler #10.2 grams (budesonide-formoterol) Ventolin HFA 90 mcg/actuation 2 puff inhalation Q4-6H PRN 11/23/23 aerosol inhaler (albuterol sulfate) shortness of breath or wheezing 30 days #1 ea prednisone 20 mg tablet 20 mg PO DAILY #12 tabs 12/31/23 buprenorphine 8 mg-naloxone 2 mg 1 film sublingual BID 30 days #60 03/14/24 sublingual film (Suboxone) ea ipratropium 0.5 mg-albuterol 3 mg 3 ml inhalation Q6H PRN for 04/28/24 (2.5 mg base)/3 mL nebulization wheezing #540 mL soln amoxicillin 875 mg-potassium 1 tab PO BID #20 tabs 05/02/24 clavulanate 125 mg tablet ibuprofen 600 mg tablet 600 mg PO Q8H PRN pain #20 tabs 05/02/24 tramadol 50 mg tablet 50 mg PO Q6H PRN pain #8 tabs 05/02/24 Allergies Allergy/AdvReac Type Severity Reaction Status Date / Time metoclopramide [Reglan] Allergy Unknown Difficulty Verified 05/02/24 06:39 Breathing metronidazole [From FLAGYL] Allergy Unknown UNKNOWN Verified 05/02/24 06:39 haloperidol [From HALDOL] AdvReac Severe Tardive Verified 05/02/24 06:39 Diskinesia prochlorperazine AdvReac Severe Tardive Verified 05/02/24 06:39 [From COMPAZINE] Diskinesia Review of Systems Review of Systems: Yes all other systems are reviewed and are negative [facility] Past Medical History Medical History Obesity (BMI 30-39.9) Opioid use disorder Elevated blood pressure reading Morbid obesity with BMI of 40.0-44.9, adult History of opioid abuse Asthma Hospital discharge follow-up Referral of patient Opioid use disorder Respiratory failure Asthma GERD (gastroesophageal reflux disease) Pancreatitis HTN (hypertension) Opioid use disorder Surgical History No significant past surgical history Family History Family History Father No problems noted. Mother No problems noted. Brother In good health Son In good health Mental health disorder Son In good health Son In good health Son In good health Other Family history non-contributory Substance use disorder Social History Social History Household Members: Spouse Housing: House Alcohol intake: never Comment: less wheezing Patient Tobacco Use Status: Former Tobacco user Tobacco use type: Cigarette Cigarettes Per Day: 7 service: No Current occupational status: employed Cognitive needs: No Hearing needs: No Vision needs: No Physical Exam Vital Signs: Vital Signs: Last Vital Signs Temp 97.8 F 05/02/24 06:37 Pulse 83 05/02/24 06:37 Resp 20 05/02/24 06:37 BP 113/58 L 05/02/24 06:37 Pulse Ox 96 05/02/24 06:37 O2 Del Method Room Air 05/02/24 06:37 BMI result Body Mass Index 31.9 Appearance: Alert. Oriented X3. Appears uncomfortable. 0 Head/face normocephalic, atraumatic. face is symmetric, no swelling Eyes: Pupils equal, round and reactive to light. ENT: Pharynx normal. No tonsillar swelling or exudate. Dental: several broken and missing teeth. right lower molar with partial blackening, partial broken, assocaited gingival tenderness without swelling. anterior molar to this is also broken with exposed dentin. no trismus. Neck: Normal inspection. Neck supple. No LAD. CVS: Normal heart rate and rhythm. Pulses normal. Respiratory: No respiratory distress. Breath sounds normal. Skin: Skin warm and dry. Normal skin color. Normal skin turgor. No rashes. Extremities: No lower extremity edema. No joint swelling. Neuro/psych: Oriented X 3. grossly normal, nonfocal Medical Decision Making Medical Decision Making MDM Narrative: 43 yo male presenting with right lower molar pain x2 days associated with a broken tooth and missing filling. no obvious abscess on exam today. no significant swelling. no trisumus. no fever will start empiric abx and pain control. counseled on the importance of close dental follow up. he will call his dentist today stable for d/c home Differential Diagnosis Differential Diagnoses: The differential diagnosis associated with the presentation includes dental abscess, dental fracture, toothache, dental caries External Record Review External record reviewed: Outpatient record, Prior outpatient labs and Prior outpatient radiology Prescription Management I considered prescription management with: Pain Medication and Antibiotic Chronic Conditions Patient?s care impacted by: Other (opioid use disorder, asthma) Critical Care Time Critical Care Time Critical Care Time: No Discharge Plan Discharge Clinical Impression: Toothache Patient Disposition: Home, Self-Care Instructions: Toothache (ED) Additional Instructions: Take the prescribed antibiotics as directed, complete the entire course and do not miss any doses CALL YOUR DENTIST TODAY Take ibuprofen alternating with tylenol 1000 mg every 6 hours If you develop new or worsening symptoms call 911 or come back to the ER for further evaluation. Call or visit any of the clinics below to establish with a dentist: [facility] [address] [place] [address] [facility] [address] [place] [address] [facility] [address] [facility], [address] Santosh Smith [address] [place] [address] [facility] [address] [facility] [address] [place] [address] [facility] [address] [place], [place] [id number] [place] [address] [place], [place] [id number] Prescriptions: New amoxicillin-pot clavulanate 875-125 mg tablet 1 tab PO BID Qty: 20 0RF ibuprofen 600 mg tablet 600 mg PO Q8H PRN (Reason: pain) Qty: 20 0RF tramadol 50 mg tablet 50 mg PO Q6H PRN (Reason: pain) Qty: 8 0RF No Action ipratropium-albuterol 0.5 mg-3 mg(2.5 mg base)/3 mL solution for nebulization 3 ml inhalation Q6H PRN (Reason: for wheezing) Qty: 540 1RF prednisone 20 mg tablet 20 mg PO DAILY Qty: 12 0RF Rx Instructions: Take 3 tablets by mouth daily for 2 days then take 2 tablets by mouth daily for 3 days. budesonide-formoterol [Symbicort] 160-4.5 mcg/actuation HFA aerosol inhaler 2 puff inhalation BID 30 Days Qty: 10.2 6RF albuterol sulfate [Ventolin HFA] 90 mcg/actuation HFA aerosol inhaler 2 puff inhalation Q4-6H PRN (Reason: shortness of breath or wheezing) 30 Days Qty: 1 6RF buprenorphine-naloxone [Suboxone] 8-2 mg film 1 film sublingual BID 30 Days Qty: 60 2RF Stand Alone Forms: Work/School Release Print Language: Estonian
[2024-05-02 06:58] VITALS: BP 120/62; PULSE 80; RESP 18; RESP 20; TEMP 36.6; O2SAT 97
== END 2024-05-02 06:59 | disposition home or self-care (01) ==
PROVIDERS: Emergency Provider Emergency Medicine Emergency Medical Services
DX: K02.9 Dental caries, unspecified (principal); K08.89 Other specified disorders of teeth and supporting structures; Z79.899 Other long term (current) drug therapy
CPT/HCPCS: 99283; 99284

== ENCOUNTER 2024-05-28 15:10 | Outpatient (AMB) | payer OTHER, SELFPAY ==
--- NOTE | 2024-05-28 15:27 | A.OFFVISCC_ITS ---
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 over the weekend for license --feeling stressed over this Review of Systems Const Reports as per HPI and Reports no additional complaints Physical Exam Const General: cooperative, healthy appearing and well groomed Nutritional Appearance: average body habitus Orientation/consciousness: patient oriented x3 Limitations: no limitations Neuro General: patient oriented x3 Assessment & Plan Assessment & Plan (1) Opioid use disorder, severe, in sustained remission: Code(s): F11.21 - Opioid dependence, in remission Category: Medical Plan: * continue suboxone at current dose * follow up 8 weeks * encouraged to call office should he need to be seen [facility] Medical History Obesity (BMI 30-39.9) Opioid use disorder Elevated blood pressure reading Morbid obesity with BMI of 40.0-44.9, adult History of opioid abuse Asthma Hospital discharge follow-up Referral of patient Opioid use disorder Respiratory failure Asthma GERD (gastroesophageal reflux disease) Pancreatitis HTN (hypertension) Opioid use disorder Surgical History No significant past surgical history Family History Father No problems noted. Mother No problems noted. Brother In good health Son In good health Mental health disorder Son In good health Son In good health Son In good health Other Family history non-contributory Substance use disorder Social History Household Members: Spouse Housing: House Alcohol intake: never Comment: less wheezing Patient Tobacco Use Status: Former Tobacco user Tobacco use type: Cigarette Cigarettes Per Day: 7 service: No Current occupational status: employed Cognitive needs: No Hearing needs: No Vision needs: No
== END 2024-05-28 15:40 | disposition home or self-care (01) ==
PROVIDERS: PCP Internal Medicine; Visit Provider Nurse Practitioner Psychiatric/Mental Health
DX: F11.21 Opioid dependence, in remission (principal)
CPT/HCPCS: 99213

== ENCOUNTER → 2024-05-28 15:10 | Outpatient (BNVA) | payer OTHER, SELFPAY | PROVIDERS: PCP Internal Medicine; Visit Provider Nurse Practitioner Psychiatric/Mental Health | DX: E11.21 Type 2 diabetes mellitus with diabetic nephropathy (principal); Z79.899 Other long term (current) drug therapy | CPT/HCPCS: 99212 ==

== ENCOUNTER 2024-06-01 02:30 | Emergency (ER) | payer OTHER, SELFPAY ==
[2024-06-01 02:37] VITALS: BP 110/80; BP 113/73; PULSE 106; PULSE 58; RESP 28; TEMP 37.1; O2SAT 94; O2SAT 98; BMI 30.7
--- NOTE | 2024-06-01 03:01 | ECG_ITS ---
Test Reason : OVERDOSED Blood Pressure : / mmHG Vent. Rate : 059 BPM Atrial Rate : 059 BPM P-R Int : 152 ms QRS Dur : 096 ms QT Int : 442 ms P-R-T Axes : 051 037 043 degrees QTc Int : 437 ms Sinus bradycardia Otherwise normal ECG When compared with ECG of 16-JUN-2020 17:44, No significant change was found Referred By: Generic ED Physician Electronically Signed By:MORGAN SALAMANCA MD
--- NOTE | 2024-06-01 03:02 | MHC.EDTECH ---
All Patient belongings are locked up in decon
--- NOTE | 2024-06-01 03:05 | PC.NURSE ---
Security called upon arrival to [facility]; assisted in changing over the patient into hospital attire and locking all belongings up in [place]. Patient does have a necklace on that we were unable to get off at this time. Patient is unable to hold a conversation or stay awake at this time.
[2024-06-01 03:20] LABS: Glucose, Whole Blood 143 mg/dL (60-115)
--- NOTE | 2024-06-01 03:26 | MHC.EDTECH ---
Patient was biba ,Patient was change into hospital attire ,all Pt belonings are locked up in decon ,ekg taken and was read by Provider ,blood drawn and sent to lab ,vitals taken ,Patient sleeping ,all safety measure in Place .
[2024-06-01 03:27] LABS: MANUAL DIFF FLAG NO
[2024-06-01 03:28] VITALS: BP 101/72; PULSE 64; RESP 16; TEMP 36.2; O2SAT 92
[2024-06-01 03:30] LABS: Basophils Absolute Auto 0.1 X10*3/uL (0.0-0.2); Basophils Percent Auto 0.7 % (0-2); Eosinophils Absolute Auto 0.6 X10*3/uL (0.0-0.4); Hematocrit 39.6 % (42.0-52.0); Imm Gran Abs Auto 0.04 X10*3/uL (0.00-0.03); Imm Gran Pct Auto 0.3 % (0.0-0.4); Lymphocytes Absolute Auto 2.2 X10*3/uL (1.2-4.9); Lymphocytes Percent Auto 17.4 % (20-40); Mean Corpuscular HGB Conc 32.8 g/dl (31.0-36.0); Mean Corpuscular Volume 88.2 fL (80.0-98.0); Mean Platelet Volume 9.1 fL (9.4-12.4); Monocytes Absolute Auto 0.8 X10*3/uL (0.1-1.2); Monocytes Percent Auto 6.6 % (2-11); Neutrophils Absolute Auto 8.7 x10*3/uL (2.0-8.3); Platelet Count 337 X10*3/uL (160-400); Red Blood Count 4.49 X10*6/uL (4.60-5.80); Red Cell Distribution Width 13.6 % (11.0-16.0); White Blood Count 12.5 X10*3/uL (4.8-10.8)
[2024-06-01 03:40] VITALS: BP 105/71; PULSE 62; RESP 16; O2SAT 96
[2024-06-01 03:45] LABS: Acetaminophen LAB < 3 mcg/mL (<30); Alanine Aminotransferase 15 U/L (0-40); Albumin Level 3.5 g/dL (3.5-5.0); Alkaline Phosphatase 110 U/L (39-117); Anion Gap 12 (12-20); Aspartate Amino Transferase 27 U/L (5-37); Bilirubin Total 0.2 mg/dL (0.0-1.0); Blood Urea Nitrogen 11 mg/dL (9-16); Calcium 8.5 mg/dL (8.4-10.2); Carbon Dioxide 23 mmol/L (22-29); Chloride 107 mmol/L (96-108); Creatinine Clr Calc Pharmacy 143.6; Estimated Glomerular Filt Rate > 60; Ethanol < 10 mg/dL; Glucose Random 114 mg/dL (60-115); Potassium 3.7 mmol/L (3.3-5.1); Salicylate < 5.0 mg/dL (15-30); Sodium 138 mmol/L (135-145); Total Protein 7.3 g/dL (6.5-8.0)
--- NOTE | 2024-06-01 05:50 | ED.GENADULT ---
HPI - General Adult General Chief complaint: ETOH/Substance Use Stated complaint: POSSIBLE OVERDOSE Time Seen by Provider: 06/01/24 05:50 History of Present Illness ED Provider: Birgit LOPEZ narrative: The patient is a 43-year-old male who was brought to the hospital by ambulance. Apparently sander and buffer report that patient has been found in a car passed out by police. I think the police believes he has been snorting heroin and were concerned about his safety and so broke the window of his car to access the car. The patient denies snorting heroin or using any other drugs tonight. He said he was planning on driving to [place] who go to his mother's house when the police broke the window of his car. When I asked him if the car was parked he said no. When I asked him how the police would have found him in his car he ultimately said that perhaps he had fallen asleep stopped at an intersection. He denied drug use. Here in the emergency room the patient has no complaints. He says that he has wheezing but that he always wheezes. He says he has a Symbicort inhaler does not want to have a DuoNeb updraft or other an inhaler treatment here in the emergency room. Related Data Previous Rx's ?Medication ?Instructions ?Recorded Symbicort 160 mcg-4.5 2 puff inhalation BID 30 days 11/23/23 mcg/actuation HFA aerosol inhaler #10.2 grams (budesonide-formoterol) Ventolin HFA 90 mcg/actuation 2 puff inhalation Q4-6H PRN 11/23/23 aerosol inhaler (albuterol sulfate) shortness of breath or wheezing 30 days #1 ea prednisone 20 mg tablet 20 mg PO DAILY #12 tabs 12/31/23 buprenorphine 8 mg-naloxone 2 mg 1 film sublingual BID 30 days #60 03/14/24 sublingual film (Suboxone) ea ipratropium 0.5 mg-albuterol 3 mg 3 ml inhalation Q6H PRN for 04/28/24 (2.5 mg base)/3 mL nebulization wheezing #540 mL soln amoxicillin 875 mg-potassium 1 tab PO BID #20 tabs 05/02/24 clavulanate 125 mg tablet ibuprofen 600 mg tablet 600 mg PO Q8H PRN pain #20 tabs 05/02/24 tramadol 50 mg tablet 50 mg PO Q6H PRN pain #8 tabs 05/02/24 Allergies Allergy/AdvReac Type Severity Reaction Status Date / Time metoclopramide [Reglan] Allergy Unknown Difficulty Verified 06/01/24 02:39 Breathing metronidazole [From FLAGYL] Allergy Unknown UNKNOWN Verified 06/01/24 02:39 haloperidol [From HALDOL] AdvReac Severe Tardive Verified 06/01/24 02:39 Diskinesia prochlorperazine AdvReac Severe Tardive Verified 06/01/24 02:39 [From COMPAZINE] Diskinesia Review of Systems Review of Systems: Yes all other systems are reviewed and are negative [facility] Past Medical History Medical History Obesity (BMI 30-39.9) Opioid use disorder Elevated blood pressure reading Morbid obesity with BMI of 40.0-44.9, adult History of opioid abuse Asthma Hospital discharge follow-up Referral of patient Opioid use disorder Respiratory failure Asthma GERD (gastroesophageal reflux disease) Pancreatitis HTN (hypertension) Opioid use disorder Surgical History No significant past surgical history Family History Family History Father No problems noted. Mother No problems noted. Brother In good health Son In good health Mental health disorder Son In good health Son In good health Son In good health Other Family history non-contributory Substance use disorder Social History Social History Household Members: Spouse Housing: House Alcohol intake: never Comment: less wheezing Patient Tobacco Use Status: Former Tobacco user Tobacco use type: Cigarette Cigarettes Per Day: 7 Smoked in Last 30 Days: No Use of substances other than those prescribed or required for medical reasons: No Advance Directives: No Do you have a plan to hurt others: No Plan service: No Current occupational status: employed Cognitive needs: No Hearing needs: No Vision needs: No Physical Exam ED Vital Signs: Vital Signs - 24 hr 06/01/24 02:37 06/01/24 03:28 06/01/24 03:40 Temperature 98.7 F 97.2 F Pulse Rate 58 64 62 Respiratory Rate 28 H 16 16 Blood Pressure 113/73 101/72 105/71 Pulse Oximetry 94 92 96 Oxygen Delivery Method Room Air Room Air Nasal Cannula Oxygen Flow Rate 2 06/01/24 06:14 06/01/24 06:49 Temperature 97.0 F 97.0 F Pulse Rate 57 56 Respiratory Rate 16 16 Blood Pressure 120/47 L 120/47 L Pulse Oximetry 96 96 Oxygen Delivery Method Room Air Room Air Oxygen Flow Rate BMI result Body Mass Index 30.7 Const Other: The patient is a somewhat chronically ill looking 43-year-old. He is well-groomed. He does not seem in acute distress. [facility] Head: Yes normal to inspection Face and sinus: Yes normal facial exam Mouth: Normal oral and palatal mucosa present and moist mucous membranes Eyes General: appearance normal, both eyes and all related structures Neck Neck: Yes full ROM Resp Other: Inspiratory and expiratory wheezes bilaterally. No increased work of breathing. Cardio Rate: regular rate Rhythm: regular rhythm Heart sounds: S1 normal heart sound present and S2 normal heart sound present GI Other: Abdomen is soft and nontender Skin Other: Skin is dry and unremarkable Neuro Other: The patient is awake and alert. May seem mildly groggy but for the most part cognition seems appropriate and normal. Cranial nerves are grossly intact. He moves his extremities normally and appropriately. Extrem Other: No injuries to the extremities. No peripheral edema. Medical Decision Making Medical Decision Making MDM Narrative: The patient is a 43-year-old male who was brought to the hospital after police were concerned about his safety in his car. Police were concerned that he might have been using heroin. Here the patient denied using any illicit drugs and my initial plan was to discharge him as he also denied any suicidality or homicidality and he did not seem obviously acutely ill. At 1st the patient seemed amenable to the idea of being discharged. However he then asked to see me a 2nd time and said that he would like a letter to help him get into a detox in [place]. He could not tell me the name of the detox. I was puzzled by this request. He says that there is a detox in [place] that his mother would like him to try to get into but he could not tell me the name or location of this detox. He attempted to reach his mother but was unable to do so. Ultimately he decided to leave the emergency department. Lab Data 06/01/24 03:24 06/01/24 03:24 Labs: Lab Results 06/01/24 06/01/24 Range/Units 03:06 03:24 WBC 12.5 H (4.8-10.8) X10*3/uL RBC 4.49 L (4.60-5.80) X10*6/uL Hgb 13.0 L (14.0-18.0) g/dl Hct 39.6 L (42.0-52.0) % MCV 88.2 (80.0-98.0) fL MCH 29.0 (27.0-33.0) pg MCHC 32.8 (31.0-36.0) g/dl RDW 13.6 (11.0-16.0) % Plt Count 337 (160-400) X10*3/uL MPV 9.1 L (9.4-12.4) fL Immature Gran % (Auto) 0.3 (0.0-0.4) % Neut % (Auto) 70.0 (45-73) % Lymph % (Auto) 17.4 L (20-40) % [place] % (Auto) 6.6 (2-11) % Eos % (Auto) 5.0 H (0-4) % Baso % (Auto) 0.7 (0-2) % Lymph # (Auto) 2.2 (1.2-4.9) X10*3/uL [place] # (Auto) 0.8 (0.1-1.2) X10*3/uL Eos # (Auto) 0.6 H (0.0-0.4) X10*3/uL Baso # (Auto) 0.1 (0.0-0.2) X10*3/uL Abs Immat Gran (auto) 0.04 H (0.00-0.03) X10*3/uL Absolute Neuts (auto) 8.7 H (2.0-8.3) x10*3/uL Absolute Nucleated RBC 0.000 (0.0-0.012) X10*3/uL Nucleated RBC % (auto) 0.0 (0.0-0.2) /100WBC Sodium 138 (135-145) mmol/L Potassium 3.7 (3.3-5.1) mmol/L Chloride 107 (96-108) mmol/L Carbon Dioxide 23 (22-29) mmol/L Anion Gap 12 (12-20) BUN 11 (9-16) mg/dL Creatinine 0.83 (0.5-1.4) mg/dL Estim Creat Clear Calc 143.6 Estimated GFR > 60 POC Glucose 143 H (60-115) mg/dL Random Glucose 114 (60-115) mg/dL Calcium 8.5 D (8.4-10.2) mg/dL Total Bilirubin 0.2 (0.0-1.0) mg/dL AST 27 (5-37) U/L ALT 15 (0-40) U/L Alkaline Phosphatase 110 (39-117) U/L Total Protein 7.3 (6.5-8.0) g/dL Albumin 3.5 (3.5-5.0) g/dL Salicylates < 5.0 L (15-30) mg/dL Acetaminophen < 3 (<30) mcg/mL Ethyl Alcohol < 10 mg/dL Discharge Plan Discharge Clinical Impression: Fatigue, Asthma Patient Disposition: Home, Self-Care Additional Instructions: Please try to get some rest and some good sleep. Continue your Symbicort. Please follow up soon with your regular doctor. Return to the emergency room if you feel significantly worse at any time. Prescriptions: No Action ipratropium-albuterol 0.5 mg-3 mg(2.5 mg base)/3 mL solution for nebulization 3 ml inhalation Q6H PRN (Reason: for wheezing) Qty: 540 1RF amoxicillin-pot clavulanate 875-125 mg tablet 1 tab PO BID Qty: 20 0RF ibuprofen 600 mg tablet 600 mg PO Q8H PRN (Reason: pain) Qty: 20 0RF tramadol 50 mg tablet 50 mg PO Q6H PRN (Reason: pain) Qty: 8 0RF prednisone 20 mg tablet 20 mg PO DAILY Qty: 12 0RF Rx Instructions: Take 3 tablets by mouth daily for 2 days then take 2 tablets by mouth daily for 3 days. budesonide-formoterol [Symbicort] 160-4.5 mcg/actuation HFA aerosol inhaler 2 puff inhalation BID 30 Days Qty: 10.2 6RF albuterol sulfate [Ventolin HFA] 90 mcg/actuation HFA aerosol inhaler 2 puff inhalation Q4-6H PRN (Reason: shortness of breath or wheezing) 30 Days Qty: 1 6RF buprenorphine-naloxone [Suboxone] 8-2 mg film 1 film sublingual BID 30 Days Qty: 60 2RF Referrals: Maxx Roberto MD [Primary Care Provider] - Interventions: ED Discharge Assessment Last Done: 06/01/24 06:49 Discharge Date/Time: 06/01/24 06:50 Print Language: Hungarian
[2024-06-01 06:14] VITALS: BP 120/47; PULSE 57; RESP 16; TEMP 36.1; O2SAT 96
[2024-06-01 06:49] VITALS: BP 120/47; PULSE 56; RESP 16; TEMP 36.1; O2SAT 96
== END 2024-06-01 06:50 | disposition home or self-care (01) ==
PROVIDERS: Emergency Provider Emergency Medicine; PCP Internal Medicine
DX: R53.83 Other fatigue (principal); J45.909 Unspecified asthma, uncomplicated; F11.90 Opioid use, unspecified, uncomplicated; Z79.899 Other long term (current) drug therapy; Z87.891 Personal history of nicotine dependence; Z51.81 Encounter for therapeutic drug level monitoring
CPT/HCPCS: 36415; 80053; 80143; 80179; 80307; 82947; 85025; 93005; 99285

== ENCOUNTER → 2024-06-01 03:01 | Outpatient (BNV) | payer OTHER, SELFPAY | PROVIDERS: Emergency Provider Emergency Medicine; PCP Internal Medicine; Visit Provider Internal Medicine Cardiovascular Disease | DX: R00.1 Bradycardia, unspecified (principal) | CPT/HCPCS: 93010 ==

== ENCOUNTER 2024-06-24 19:21 | Emergency (ER) | payer OTHER, SELFPAY ==
[2024-06-24 19:34] VITALS: BP 163/103; PULSE 108; RESP 20; TEMP 37; O2SAT 95; BMI 30.5
--- NOTE | 2024-06-24 19:38 | ED_ITS ---
HPI - General Adult General Chief complaint: General Medical Stated complaint: d/c fr program/missed clinic for dose Related Data Previous Rx's ?Medication ?Instructions ?Recorded Symbicort 160 mcg-4.5 2 puff inhalation BID 30 days 11/23/23 mcg/actuation HFA aerosol inhaler #10.2 grams (budesonide-formoterol) Ventolin HFA 90 mcg/actuation 2 puff inhalation Q4-6H PRN 11/23/23 aerosol inhaler (albuterol sulfate) shortness of breath or wheezing 30 days #1 ea prednisone 20 mg tablet 20 mg PO DAILY #12 tabs 12/31/23 buprenorphine 8 mg-naloxone 2 mg 1 film sublingual BID 30 days #60 03/14/24 sublingual film (Suboxone) ea ipratropium 0.5 mg-albuterol 3 mg 3 ml inhalation Q6H PRN for 04/28/24 (2.5 mg base)/3 mL nebulization wheezing #540 mL soln amoxicillin 875 mg-potassium 1 tab PO BID #20 tabs 05/02/24 clavulanate 125 mg tablet ibuprofen 600 mg tablet 600 mg PO Q8H PRN pain #20 tabs 05/02/24 tramadol 50 mg tablet 50 mg PO Q6H PRN pain #8 tabs 05/02/24 Allergies Allergy/AdvReac Type Severity Reaction Status Date / Time metoclopramide [Reglan] Allergy Unknown Difficulty Verified 06/24/24 19:35 Breathing metronidazole [From FLAGYL] Allergy Unknown UNKNOWN Verified 06/24/24 19:35 haloperidol [From HALDOL] AdvReac Severe Tardive Verified 06/24/24 19:35 Diskinesia prochlorperazine AdvReac Severe Tardive Verified 06/24/24 19:35 [From COMPAZINE] Diskinesia [facility] Past Medical History Medical History Obesity (BMI 30-39.9) Opioid use disorder Elevated blood pressure reading Morbid obesity with BMI of 40.0-44.9, adult History of opioid abuse Asthma Hospital discharge follow-up Referral of patient Opioid use disorder Respiratory failure Asthma GERD (gastroesophageal reflux disease) Pancreatitis HTN (hypertension) Opioid use disorder Surgical History No significant past surgical history Family History Family History Father No problems noted. Mother No problems noted. Brother In good health Son In good health Mental health disorder Son In good health Son In good health Son In good health Other Family history non-contributory Substance use disorder Social History Social History Household Members: Spouse Housing: House Alcohol intake: never Comment: less wheezing Patient Tobacco Use Status: Former Tobacco user Tobacco use type: Cigarette Cigarettes Per Day: 7 Do you have a plan to hurt others: No Plan service: No Current occupational status: employed Cognitive needs: No Hearing needs: No Vision needs: No Physical Exam ED Vital Signs: Vital Signs - 24 hr 06/24/24 19:34 Temperature 98.6 F Pulse Rate 108 H Respiratory Rate 20 Blood Pressure 163/103 H Pulse Oximetry 95 Oxygen Delivery Method Room Air BMI result Body Mass Index 30.5 Course Course Course Narrative: RME, this is a rapid medical exam performed by Sandip Regan please refer to primary provider for complete H&P- 43-year-old male presents for evaluation of ?I missed my dose of methadone. ? patient was previously prescribed Suboxone but reports that he stopped taking a couple of weeks ago. He last filled 30 days description of Suboxone 2 weeks ago. He reports that he stopped taking it, relapsed and then went to detox at [facility]. He reports he was transitioned to methadone and now presents to the ER because he missed his dose. He reports he was unable to get to the clinic on time today. Discharge Plan Discharge Prescriptions: No Action ipratropium-albuterol 0.5 mg-3 mg(2.5 mg base)/3 mL solution for nebulization 3 ml inhalation Q6H PRN (Reason: for wheezing) Qty: 540 1RF amoxicillin-pot clavulanate 875-125 mg tablet 1 tab PO BID Qty: 20 0RF ibuprofen 600 mg tablet 600 mg PO Q8H PRN (Reason: pain) Qty: 20 0RF tramadol 50 mg tablet 50 mg PO Q6H PRN (Reason: pain) Qty: 8 0RF prednisone 20 mg tablet 20 mg PO DAILY Qty: 12 0RF Rx Instructions: Take 3 tablets by mouth daily for 2 days then take 2 tablets by mouth daily for 3 days. budesonide-formoterol [Symbicort] 160-4.5 mcg/actuation HFA aerosol inhaler 2 puff inhalation BID 30 Days Qty: 10.2 6RF albuterol sulfate [Ventolin HFA] 90 mcg/actuation HFA aerosol inhaler 2 puff inhalation Q4-6H PRN (Reason: shortness of breath or wheezing) 30 Days Qty: 1 6RF buprenorphine-naloxone [Suboxone] 8-2 mg film 1 film sublingual BID 30 Days Qty: 60 2RF Print Language: Malagasy
== END 2024-06-24 20:19 | disposition left against medical advice (07) ==
LOC: HO.ED 20:18
PROVIDERS: Emergency Provider Emergency Medicine; PCP Internal Medicine
DX: F11.20 Opioid dependence, uncomplicated (principal); Z79.899 Other long term (current) drug therapy
CPT/HCPCS: 99281

== ENCOUNTER 2024-08-25 23:29 | Emergency (ER) | payer OTHER, SELFPAY ==
[2024-08-25 23:37] VITALS: BP 105/68; PULSE 83; RESP 16; TEMP 36.1; O2SAT 98; BMI 29.2
[2024-08-26 00:06] LABS: MANUAL DIFF FLAG NO
[2024-08-26 00:13] LABS: Basophils Absolute Auto 0.1 X10*3/uL (0.0-0.2); Basophils Percent Auto 0.6 % (0-2); Eosinophils Absolute Auto 0.3 X10*3/uL (0.0-0.4); Eosinophils Percent Auto 1.8 % (0-4); Hematocrit 47.1 % (42.0-52.0); Hemoglobin 14.8 g/dl (14.0-18.0); Imm Gran Abs Auto 0.07 X10*3/uL (0.00-0.03); Imm Gran Pct Auto 0.5 % (0.0-0.4); Lymphocytes Absolute Auto 1.7 X10*3/uL (1.2-4.9); Lymphocytes Percent Auto 11.9 % (20-40); Mean Corpuscular HGB Conc 31.4 g/dl (31.0-36.0); Mean Corpuscular Hemoglobin 29.2 pg (27.0-33.0); Mean Corpuscular Volume 92.9 fL (80.0-98.0); Mean Platelet Volume 10.2 fL (9.4-12.4); Monocytes Absolute Auto 0.4 X10*3/uL (0.1-1.2); Monocytes Percent Auto 2.9 % (2-11); Neutrophils Absolute Auto 11.5 x10*3/uL (2.0-8.3); Neutrophils Percent Auto 82.3 % (45-73); Platelet Count 256 X10*3/uL (160-400); Red Blood Count 5.07 X10*6/uL (4.60-5.80); Red Cell Distribution Width 13.9 % (11.0-16.0); White Blood Count 13.9 X10*3/uL (4.8-10.8)
[2024-08-26 00:26] LABS: Appearance Urine Clear; Color Urine Yellow; Glucose Urine UA Negative (Negative); Leukocyte Esterase Urine Negative (Negative); Nitrite Urine Negative (Negative); Specific Gravity - Urine >= 1.030 (1.005-1.025); Urine Blood Negative (Negative); Urine Ketones Trace mg/dL (Negative); Urine Protein Trace mg/dL (Neg-Trace)
[2024-08-26 00:36] LABS: Alanine Aminotransferase 10 U/L (0-40); Albumin Level 3.4 g/dL (3.5-5.0); Alkaline Phosphatase 97 U/L (39-117); Anion Gap 16 (12-20); Aspartate Amino Transferase 31 U/L (5-37); Bilirubin Direct 0.1 mg/dL (0.0-0.5); Bilirubin Total 0.3 mg/dL (0.0-1.0); Blood Urea Nitrogen 17 mg/dL (9-16); Calcium 9.3 mg/dL (8.4-10.2); Carbon Dioxide 16 mmol/L (22-29); Chloride 110 mmol/L (96-108); Creatinine Clr Calc Pharmacy 127.9; Estimated Glomerular Filt Rate > 60; Glucose Random 99 mg/dL (60-115); Potassium 5.1 mmol/L (3.3-5.1); Sodium 137 mmol/L (135-145); Total Protein 8.9 g/dL (6.5-8.0)
[2024-08-26 00:50] LABS: Bacteria Urine None Seen (None Seen); Hyaline Casts Urine 0-2 /LPF (0-2); RBC Urine 0-2 /HPF (0-2); Squamous Epithelial Cell Urine 0-2 /HPF (0-2); WBC Urine 0-5 /HPF (0-5)
[2024-08-26 00:52] LABS: Influenza A PCR NEGATIVE (Negative); Influenza B PCR NEGATIVE (Negative); Resp Syncy Virus RNA Qual PCR NEGATIVE (Negative); SARS COV2 PCR INHOUSE NEGATIVE (Negative)
--- OUTSIDE RECORDS SUMMARY | 2024-08-26 00:56 | XMS_ITS | Clinical Summary ---
Author Organization [facility] Address [address] [place] [address] Care Team Providers Care Business Project Manager Name Role Phone Pcp, No Primary Care Provider Unavailabl e Allergies Active Allergy Reactions Criticality Noted Date Comments Haloperidol Unknown/Patient and Family Unable to Define Medium 01/26/2019 Causes extrapyramidal symptoms Metoclopramide Unknown/Patient and Family Unable to Define Medium 11/18/2018 Not sure of reaction Prochlorperazine Unknown/Patient and Family Unable to Define High 11/18/2018 Causes extrapyramidal symptoms Medications Medication Sig Dispensed Refills Start Date End Date Status benralizumab (Fasenra) 30 MG/ML injection Inject 30 mg under the skin every 28 days (4 weeks). Active ipratropium-albuter ol (DUONEB) 0.5-2.5 mg/3 mL nebulizer solution Take 1 vial by nebulization 4 times daily (every 6 hours) as needed for wheezing or shortness of breath. Active buprenorphine-nalox one (SUBOXONE) 8-2 mg per SL filmIndications:Ast hma exacerbation,Cocain e abuse (HCC) Place 1 Film under the tongue 2 (two) times a day. Max Daily Amount: 2 Film 1 Film 02/14/2021 Active nystatin (MYCOSTATIN) [id number] UNIT/ML suspensionIndicatio ns:Asthma exacerbation Take 5 mL (500,000 Units total) by mouth 4 (four) times a day. 60 mL 02/14/2021 Active budesonide (PULMICORT) 0.5 mg/2 mL nebulizer solutionIndications :Asthma exacerbation Take 1 vial (0.5 mg total) by nebulization 2 (two) times a day. 60 ampule 02/14/2021 Active LORazepam (ATIVAN) 2 MG tabletIndications:A sthma exacerbation Take 1 tablet (2 mg total) by mouth every 4 (four) hours as needed for anxiety (agitation). 18 tablet 02/14/2021 Active predniSONE (DELTASONE) 10 MG tabletIndications:A sthma exacerbation Take 1 tablet (10 mg total) by mouth daily. With food. Do not start before February 24, 2021. 3 tablet 02/24/2021 Active albuterol (PROVENTIL HFA; VENTOLIN HFA) 108 (90 Base) MCG/ACT inhalerIndications: Asthma exacerbation Inhale 1-2 puffs every 4 (four) hours as needed for wheezing. 1 Inhaler 02/14/2021 Active fluticasone (FloVENT DISKUS) 100 MCG/BLIST diskus inhalerIndications: Asthma exacerbation Inhale 1 puff 2 (two) times a day. 1 Inhaler 02/14/2021 Active Active Problems Problem Noted Date Diagnosed Date Cocaine abuse 02/05/2021 Leukocytosis 02/04/2021 SIRS (systemic inflammatory response syndrome) 0 02/04/2021 Acute respiratory failure with hypoxia Tobacco abuse 02/04/2021 Resolved Problems Problem Noted Date Diagnosed Date Resolved Date Asthma exacerbation 02/04/2021 09/20/19 24 Social History Tobacco Use Types Packs/Day Years Used Date Smoking Tobacco: Never Assessed Sex and Gender Information Value Date Recorded Sex Assigned at Not on file Gender Identity Not on file Sexual Orientation Not on file Last Filed Vital Signs Vital Sign Reading Time Taken Comments Blood Pressure 138/89 02/14/2021 11:53 AM EDT Pulse 93 02/14/2021 11:53 AM EDT Temperature 37.1 ??C (98.7 ??F) 02/14/2021 11:53 AM E DT Respiratory Rate 18 02/14/2021 11:53 AM EDT Oxygen Saturation 94% 02/14/2021 11:53 AM EDT Inhaled Oxygen Concentration - - Weight 121 kg (266 lb) 02/14/2021 6:00 AM EDT Height 175.3 cm (5' 9 ) 02/09/2021 9:00 AM EDT Body Mass Index 39.28 02/09/2021 9:00 AM EDT Plan of Treatment Health Maintenance Due Date Last Done Comments Hepatitis C Virus Screening 1981 HIV Screening 1994 DTaP/Tdap/Td Vaccines (1 - Tdap) 2000 Hepatitis B Vaccines (1 of 3 - 19+ 3-dose series) 2000 Influenza Vaccine 02/07/2024 COVID-19 Vaccine (1 - 2023-2 5 season) 2024 HPV Vaccines Aged Out No longer eligi ble based on patient's age to complete this topic Pneumococcal Vaccine: Pediat roger (0-5 Years) and At-Risk Patients (6 to 49 Years) Aged Out No longer eligible b ased on patient's age to complete this topic Advance Directives * Full Code (Latest Code Status on File) Date Activated Date Inactivated Comments 02/04/2021 12:37 PM Care Teams Business Project Manager Relationship Specialty Start Date End Date Pcp, [address] [place] [address] PCP - General 08/31/19
--- NOTE | 2024-08-26 04:29 | PC.NURSE ---
patient informed tech he was leaving, did not want to wait to be seen by provider.
== END 2024-08-26 04:30 | disposition left against medical advice (07) ==
PROVIDERS: Emergency Provider Emergency Medicine; PCP Internal Medicine
DX: R10.9 Unspecified abdominal pain (principal); Z03.818 Encounter for observation for suspected exposure to other biological agents ruled out; J45.909 Unspecified asthma, uncomplicated; Z53.21 Procedure and treatment not carried out due to patient leaving prior to being seen by health care provider
CPT/HCPCS: 0241U; 80053; 81001; 82248; 85025; 99281; 99282

== ENCOUNTER 2024-12-03 06:03 | Emergency (ER) | payer OTHER, SELFPAY ==
--- NOTE | ~2024-12-03 | XR_ITS ---
CLINICAL HISTORY: wheezing, cough Chest radiographs, 2 views Comparison: CT/SR - CT CHEST WO IV CON - 01/03/24 08:57 EDT Findings: The cardiomediastinal silhouette is not enlarged. Pulmonary vascularity is unremarkable. Lobulated soft tissue density at the peripheral right midlung adjacent to old right rib fractures likely represents pleural thickening. Lungs are clear other than mild bilateral costophrenic angle airspace opacities. The costophrenic angles are slightly blunted on the lateral view. No pneumothorax. IMPRESSION: 1. Peripheral right midlung pleural thickening likely related to old right rib fractures. 2. Minimal bilateral costophrenic angle airspace disease and possible trace bilateral pleural effusions. This document has been electronically signed by: Erik Greer DO on 12/03/2024 09:07:34
[2024-12-03 06:09] VITALS: BP 130/77; PULSE 101; RESP 18; TEMP 36.6; O2SAT 98; BMI 29.2
[2024-12-03 07:11] LABS: MANUAL DIFF FLAG NO
[2024-12-03 07:19] LABS: Basophils Absolute Auto 0.2 X10*3/uL (0.0-0.2); Basophils Percent Auto 1.1 % (0-2); Eosinophils Absolute Auto 1.1 X10*3/uL (0.0-0.4); Eosinophils Percent Auto 7.9 % (0-4); Hemoglobin 13.4 g/dl (14.0-18.0); Imm Gran Abs Auto 0.05 X10*3/uL (0.00-0.03); Imm Gran Pct Auto 0.4 % (0.0-0.4); Lymphocytes Absolute Auto 1.9 X10*3/uL (1.2-4.9); Lymphocytes Percent Auto 13.5 % (20-40); Mean Corpuscular HGB Conc 32.7 g/dl (31.0-36.0); Mean Corpuscular Hemoglobin 29.4 pg (27.0-33.0); Mean Corpuscular Volume 89.9 fL (80.0-98.0); Mean Platelet Volume 8.9 fL (9.4-12.4); Monocytes Absolute Auto 1.1 X10*3/uL (0.1-1.2); Monocytes Percent Auto 7.8 % (2-11); Neutrophils Absolute Auto 9.8 x10*3/uL (2.0-8.3); Neutrophils Percent Auto 69.3 % (45-73); Platelet Count 377 X10*3/uL (160-400); Red Blood Count 4.56 X10*6/uL (4.60-5.80); Red Cell Distribution Width 13.3 % (11.0-16.0); White Blood Count 14.2 X10*3/uL (4.8-10.8)
[2024-12-03 07:34] LABS: Alanine Aminotransferase 13 U/L (0-40); Albumin Level 3.9 g/dL (3.5-5.0); Alkaline Phosphatase 89 U/L (39-117); Anion Gap 11 (12-20); Aspartate Amino Transferase 28 U/L (5-37); Bilirubin Total 0.2 mg/dL (0.0-1.0); Blood Urea Nitrogen 20 mg/dL (9-16); Calcium 8.8 mg/dL (8.4-10.2); Carbon Dioxide 24 mmol/L (22-29); Chloride 108 mmol/L (96-108); Estimated Glomerular Filt Rate > 60; Glucose Random 96 mg/dL (60-115); Potassium 4.2 mmol/L (3.3-5.1); Sodium 139 mmol/L (135-145); Total Protein 7.8 g/dL (6.5-8.0)
[2024-12-03 08:02] LABS: Influenza A PCR NEGATIVE (Negative); Influenza B PCR NEGATIVE (Negative); Resp Syncy Virus RNA Qual PCR NEGATIVE (Negative); SARS COV2 PCR INHOUSE NEGATIVE (Negative)
--- NOTE | 2024-12-03 08:05 | ED.URI ---
HPI - URI/Sore Throat General Chief Complaint: Upper Respiratory Symptoms Stated Complaint: sinus infection Time Seen by Provider: 12/03/24 08:05 Source: patient and old records reviewed Mode of arrival: ambulatory Limitations: no limitations History of Present Illness ED Provider: DEL LOPEZ Narrative: 44 yo male with PMH of severe asthma, DILMA, pneumonia, opiate use disorder here with 5 days of cough, sinus pressure, mild wheezing which is baseline for him. No known fevers but feels hot. NO travel or sick contacts. Eating and drinking well. No CP MD elicited complaint: cough, sore throat, rhinorrhea, nasal congestion and sinus pain Pertinent past history: asthma Onset (ago): day(s) (5) Consistency: constant Severity: moderate Description of mucous: yellow Able to tolerate fluids by mouth: Yes Exacerbating factors: exertion Relieving factors: nothing Associated symptoms: rhinorrhea, nasal congestion, sore throat, cough and shortness of breath Treatments prior to arrival: none Related Data Previous Rx's ?Medication ?Instructions ?Recorded Ventolin HFA 90 mcg/actuation 2 puff inhalation Q4-6H PRN 11/23/23 aerosol inhaler (albuterol sulfate) shortness of breath or wheezing 30 days #1 ea prednisone 20 mg tablet 20 mg PO DAILY #12 tabs 12/31/23 buprenorphine 8 mg-naloxone 2 mg 1 film sublingual BID 30 days #60 03/14/24 sublingual film (Suboxone) ea amoxicillin 875 mg-potassium 1 tab PO BID #20 tabs 05/02/24 clavulanate 125 mg tablet ibuprofen 600 mg tablet 600 mg PO Q8H PRN pain #20 tabs 05/02/24 tramadol 50 mg tablet 50 mg PO Q6H PRN pain #8 tabs 05/02/24 Symbicort 160 mcg-4.5 2 puff inhalation BID 30 days 08/01/24 mcg/actuation HFA aerosol inhaler #10.2 grams (budesonide-formoterol) ipratropium 0.5 mg-albuterol 3 mg 3 ml inhalation Q6H PRN for 09/04/24 (2.5 mg base)/3 mL nebulization wheezing #540 mL soln amoxicillin 875 mg-potassium 1 tab PO BID #14 tabs 12/03/24 clavulanate 125 mg tablet azithromycin 250 mg tablet 250 mg PO DAILY 4 days #4 tabs 12/03/24 prednisone 10 mg tablet 10 mg PO DIRECTED #41 tabs 12/03/24 Allergies Allergy/AdvReac Type Severity Reaction Status Date / Time metoclopramide [Reglan] Allergy Unknown Difficulty Verified 12/03/24 06:10 Breathing metronidazole [From FLAGYL] Allergy Unknown UNKNOWN Verified 12/03/24 06:10 haloperidol [From HALDOL] AdvReac Severe Tardive Verified 12/03/24 06:10 Diskinesia prochlorperazine AdvReac Severe Tardive Verified 12/03/24 06:10 [From COMPAZINE] Diskinesia Review of Systems Review of Systems: Constitutional : No Fever, No Chills ENT/Mouth : No Hoarseness, pos sore throat, pos Rhinorrhea Eyes: No Redness, No Discharge, No Vision Changes Cardiovascular : No Chest Pain, positive SOB, positive Dyspnea on Exertion, No Edema Respiratory : positive Cough, pos Sputum, positive Wheezing, Gastrointestinal : No Nausea, No Vomiting, No Diarrhea, No abdominal Pain Genitourinary : No Dysuria, No Hematuria Musculoskeletal : No joint pain, No Myalgias Skin : No rash Neuro : No Weakness, No Numbness, No Headache Psych : No anxiety, depression All other systems reviewed and are negative PMFSH Past Medical History Attestation statement: The following information was validated with the patient. Source: old records reviewed Medical History Obesity (BMI 30-39.9) Opioid use disorder Elevated blood pressure reading Morbid obesity with BMI of 40.0-44.9, adult History of opioid abuse Asthma Hospital discharge follow-up Referral of patient Opioid use disorder Respiratory failure Asthma GERD (gastroesophageal reflux disease) Pancreatitis HTN (hypertension) Opioid use disorder Surgical History No significant past surgical history Family History Family History Father No problems noted. Mother No problems noted. Brother In good health Son In good health Mental health disorder Son In good health Son In good health Son In good health Other Family history non-contributory Substance use disorder Social History Social History Household Members: Spouse Housing: House Alcohol intake: never Comment: less wheezing Patient Tobacco Use Status: Former Tobacco user Tobacco use type: Cigarette Cigarettes Per Day: 7 Smoked in Last 30 Days: No Use of substances other than those prescribed or required for medical reasons: No Advance Directives: No Advance Directives Information Provided: Yes Do you have a plan to hurt others: No Plan service: No Current occupational status: employed Cognitive needs: No Hearing needs: No Vision needs: No Physical Exam Vital Signs: Vital Signs: Last Vital Signs Temp 98.5 F 12/03/24 09:38 Pulse 91 12/03/24 09:38 Resp 22 H 12/03/24 09:38 BP 135/77 12/03/24 09:38 Pulse Ox 96 12/03/24 09:38 O2 Del Method Room Air 12/03/24 09:38 BMI result Body Mass Index 29.2 Appearance: Alert. Oriented X3. No acute distress. Eyes: Pupils equal, round and reactive to light. ENT: Pharynx normal. Neck: Normal inspection. Neck supple. CVS: Normal heart rate and rhythm. Pulses normal. Respiratory: No respiratory distress. Breath sounds diffuse mild exp wheezes throughout Abdomen: Soft and nontender. Skin: Skin warm and dry. Normal skin color. Normal skin turgor. Extremities: No lower extremity edema. No calf ttp Neuro: Oriented X 3. No motor deficit. No sensory deficit. CN2-12 intact Medications Administered Discontinued Medications Generic Name Dose Route Start Last Admin Trade Name Freq PRN Reason Stop Dose Admin Amoxicillin/Clavulanate Potassium 875 mg 12/03/24 08:06 12/03/24 08:43 Amoxicillin/Potassium Clav 875 Mg Tablet PO 12/03/24 08:07 875 mg ONCE ONE Administration Azithromycin 500 mg 12/03/24 08:06 12/03/24 08:43 Azithromycin 500 Mg Tablet PO 12/03/24 08:07 500 mg ONCE ONE Administration Albuterol Sulfate 5 mg/ 0 mg 12/03/24 09:01 12/03/24 09:03 Albuterol/Ipratropium 3 ml INHALE 12/03/24 09:02 1 each ONCE ONE Administration Prednisone 60 mg 12/03/24 08:06 12/03/24 08:43 Prednisone 20 Mg Tablet PO 12/03/24 08:07 60 mg ONCE ONE Administration Medical Decision Making Medical Decision Making MDM Narrative: 44 yo male with PMH of severe asthma, DIMLA, pneumonia, opiate use disorder here with c/o URI symptoms and not feeling well he is not labored he has scant wheezes and for him the lungs sound reasonable. At this time labs, viral panel, CXR ordered. I have ordered neb and will start on oral abx and steroids. I did discuss admission with him but he declines. He is reliable. Differential Diagnosis Differential Diagnoses: The differential diagnosis associated with the presentation includes asthma, URI, sinusitis, pneumonia Admission/Observation Consideration of admission/observation: Escalation of care including admission/observation considered reassuring VS and he was asked if he wanted to stay but he declines, given precautions to return Lab Data [facility] Lab Attestation statement: I reviewed the patient's lab results. 12/03/24 07:02 12/03/24 07:02 Labs: Lab Results 12/03/24 Range/Units 07:02 WBC 14.2 H (4.8-10.8) X10*3/uL RBC 4.56 L (4.60-5.80) X10*6/uL Hgb 13.4 L (14.0-18.0) g/dl Hct 41.0 L (42.0-52.0) % MCV 89.9 (80.0-98.0) fL MCH 29.4 (27.0-33.0) pg MCHC 32.7 (31.0-36.0) g/dl RDW 13.3 (11.0-16.0) % Plt Count 377 D (160-400) X10*3/uL MPV 8.9 L (9.4-12.4) fL Immature Gran % (Auto) 0.4 (0.0-0.4) % Neut % (Auto) 69.3 (45-73) % Lymph % (Auto) 13.5 L (20-40) % Bollinger % (Auto) 7.8 (2-11) % Eos % (Auto) 7.9 H (0-4) % Baso % (Auto) 1.1 (0-2) % Lymph # (Auto) 1.9 (1.2-4.9) X10*3/uL Bollinger # (Auto) 1.1 (0.1-1.2) X10*3/uL Eos # (Auto) 1.1 H (0.0-0.4) X10*3/uL Baso # (Auto) 0.2 (0.0-0.2) X10*3/uL Abs Immat Gran (auto) 0.05 H (0.00-0.03) X10*3/uL Absolute Neuts (auto) 9.8 H (2.0-8.3) x10*3/uL Absolute Nucleated RBC 0.000 (0.0-0.012) X10*3/uL Nucleated RBC % (auto) 0.0 (0.0-0.2) /100WBC Sodium 139 (135-145) mmol/L Potassium 4.2 (3.3-5.1) mmol/L Chloride 108 (96-108) mmol/L Carbon Dioxide 24 (22-29) mmol/L Anion Gap 11 L (12-20) BUN 20 H (9-16) mg/dL Creatinine 0.90 (0.5-1.4) mg/dL Estim Creat Clear Calc 128.0 Estimated GFR > 60 Random Glucose 96 (60-115) mg/dL Calcium 8.8 (8.4-10.2) mg/dL Total Bilirubin 0.2 (0.0-1.0) mg/dL AST 28 (5-37) U/L ALT 13 (0-40) U/L Alkaline Phosphatase 89 (39-117) U/L Total Protein 7.8 (6.5-8.0) g/dL Albumin 3.9 (3.5-5.0) g/dL Influenza Type A (PCR) NEGATIVE (Negative) Influenza Type B (PCR) NEGATIVE (Negative) RSV RNA Qual (PCR) NEGATIVE (Negative) SARS-CoV-2 RNA (RT-PCR) NEGATIVE (Negative) Independent Interpretation I performed an independent interpretation of an: Plain X-Ray (bilateral opacities) Radiology Impression Discussion of test interpretation with radiology: I have reviewed the radiologist's reading. External Record Review External record reviewed: Outpatient record Prescription Management I considered prescription management with: Antibiotic and Other Discharge Plan Discharge Clinical Impression: Asthma exacerbation, Upper respiratory infection, Pneumonia Patient Disposition: Home, Self-Care Instructions: Asthma (ED), Upper Respiratory Infection (ED), Community Acquired Pneumonia (ED) Additional Instructions: return for any worsening symptoms or concerns negative for covid, flu, rsv next dose of augmentin is tonight azithromycin is tomorrow if you feel worse or your breathing is not improving please return repeat chest xray in 4 weeks with your doctor On amoxicillin-clavulanate, softer bowel movements are to be expected. Call your provider if you move your bowels more than 4 times a day, your bowel movements are almost all liquid, or you get a rash.? On azithromycin, call your provider if you develop new ringing in your ears, new problems hearing, dizziness, palpitations, abdominal pain, nausea, or diarrhea. Prescriptions: New prednisone 10 mg tablet 10 mg PO DIRECTED Qty: 41 0RF Rx Instructions: see taper instructions 60mg on day 1-5, 40mg on day 6, 30mg on day 7, 20mg on day 8, 10mg on day 9, 5mg on day 10 azithromycin 250 mg tablet 250 mg PO DAILY 4 Days Qty: 4 0RF Rx Instructions: start on day 2 of therapy amoxicillin-pot clavulanate 875-125 mg tablet 1 tab PO BID Qty: 14 0RF No Action budesonide-formoterol [Symbicort] 160-4.5 mcg/actuation HFA aerosol inhaler 2 puff inhalation BID 30 Days Qty: 10.2 6RF ipratropium-albuterol 0.5 mg-3 mg(2.5 mg base)/3 mL solution for nebulization 3 ml inhalation Q6H PRN (Reason: for wheezing) Qty: 540 1RF amoxicillin-pot clavulanate 875-125 mg tablet 1 tab PO BID Qty: 20 0RF ibuprofen 600 mg tablet 600 mg PO Q8H PRN (Reason: pain) Qty: 20 0RF tramadol 50 mg tablet 50 mg PO Q6H PRN (Reason: pain) Qty: 8 0RF prednisone 20 mg tablet 20 mg PO DAILY Qty: 12 0RF Rx Instructions: Take 3 tablets by mouth daily for 2 days then take 2 tablets by mouth daily for 3 days. albuterol sulfate [Ventolin HFA] 90 mcg/actuation HFA aerosol inhaler 2 puff inhalation Q4-6H PRN (Reason: shortness of breath or wheezing) 30 Days Qty: 1 6RF buprenorphine-naloxone [Suboxone] 8-2 mg film 1 film sublingual BID 30 Days Qty: 60 2RF Interventions: ED Discharge Assessment Last Done: 12/03/24 09:38 Discharge Date/Time: 12/03/24 09:40 Print Language: Malagasy
[2024-12-03 08:06] VITALS: PULSE 99; O2SAT 95
[2024-12-03] MEDS: predniSONE 20 MG TABLET 60 MG PO (08:43)
[2024-12-03] MEDS: Amoxicillin/Potassium Clav 875 MG TABLET PO (08:43)
[2024-12-03] MEDS: Azithromycin 500 MG TABLET PO (08:43)
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
[2024-12-03] MEDS: Albuterol Sulfate 5 MG, Albuterol/Iprat 2.5/0.5MG 3 ML 3 ML INHALE (09:03)
[2024-12-03 09:04] VITALS: PULSE 91; RESP 26; O2SAT 98
[2024-12-03 09:36] VITALS: BP 135/77; PULSE 91; RESP 22; TEMP 36.9; O2SAT 96
[2024-12-03 09:38] VITALS: BP 135/77; PULSE 91; RESP 22; TEMP 36.9; O2SAT 96
== END 2024-12-03 09:40 | disposition home or self-care (01) ==
PROVIDERS: Emergency Provider Emergency Medicine; PCP Internal Medicine
DX: J06.9 Acute upper respiratory infection, unspecified (principal); J45.901 Unspecified asthma with (acute) exacerbation; J18.9 Pneumonia, unspecified organism; J02.9 Acute pharyngitis, unspecified; R05.9 Cough, unspecified; R06.02 Shortness of breath; Z03.818 Encounter for observation for suspected exposure to other biological agents ruled out
CPT/HCPCS: 0241U; 71046; 80053; 85025; 94640; 99283; 99284; 99285

== ENCOUNTER → 2024-12-03 06:20 | Outpatient (BNV) | payer OTHER, SELFPAY | PROVIDERS: Emergency Provider Emergency Medicine; PCP Internal Medicine; Visit Provider Radiology Diagnostic Radiology | DX: R05.2 Subacute cough (principal) | CPT/HCPCS: 71046 ==

== ENCOUNTER 2025-02-22 09:05 | Emergency (ER) | payer OTHER, SELFPAY ==
[2025-02-22] VITALS (8 sets, daily range): BP systolic 94–132; BP diastolic 54–80; PULSE 62–80; RESP 14–19; TEMP 36.3–36.8; O2SAT 92–98; BMI 32.5
[2025-02-22 09:26] LABS: Glucose, Whole Blood 124 mg/dL (60-115)
--- NOTE | 2025-02-22 09:29 | ED_ITS ---
HPI - General Adult General Chief complaint: Overdose Stated complaint: DIZZINESS ETOH Time Seen by Provider: 02/22/25 09:22 Source: patient and EMS Mode of arrival: EMS Limitations: no limitations History of Present Illness ED Provider: Alaina Hoang APRN HPI narrative: 44-year-old male with a history of asthma who presents to the ER with concern for drowsiness. Per report from EMS patient was with a friend and they were using heroin and cocaine and the friend was concerned because the patient was quite drowsy prompting him to call 911. On arrival the patient is nonresponsive with pinpoint pupils, breathing spontaneously. Related Data Previous Rx's ?Medication ?Instructions ?Recorded Ventolin HFA 90 mcg/actuation 2 puff inhalation Q4-6H PRN 11/23/23 aerosol inhaler (albuterol sulfate) shortness of breat h or wheezing 30 days #1 ea prednisone 20 mg tablet 20 mg PO DAILY #12 tabs 12/08 10/30 buprenorphine 8 mg-naloxone 2 mg 1 film sublingual BID 30 days #60 03/14/24 sublingual film (Suboxone) ea amoxicillin 875 mg-potassium 1 tab PO BID #20 tabs clavulanate 125 mg tablet ibuprofen 600 mg tablet 600 mg PO Q8H PRN pain #20 t abs 05/02/24 tramadol 50 mg tablet 50 mg PO Q6H PRN pain #8 tab s 05/02/24 Symbicort 160 mcg-4.5 2 puff inhalation BID 30 day s 08/01/24 mcg/actuation HFA aerosol inhaler #10.2 grams (budesonide-formoterol) ipratropium 0.5 mg-albuterol 3 mg 3 ml inhalation Q6H PRN for 09/04/24 (2.5 mg base)/3 mL nebulization wheezing #540 mL soln amoxicillin 875 mg-potassium 1 tab PO BID #14 tabs clavulanate 125 mg tablet azithromycin 250 mg tablet 250 mg PO DAILY 4 days #4 t abs 12/03/24 prednisone 10 mg tablet 10 mg PO DIRECTED #41 tab s 12/03/24 Allergies Allergy/AdvReac Type Severity Reaction Status Date / Time ibuprofen (From Motrin) Allergy Unknown Verified 02/22/25 10:00 Review of Systems Review of Systems: Yes Unobtainable due to mental status [facility] Past Medical History Attestation statement: The following information was validated with the patient. Source: old records reviewed and nursing notes reviewed Medical History Obesity (BMI 30-39.9) Opioid use disorder Elevated blood pressure reading Morbid obesity with BMI of 40.0-44.9, adult History of opioid abuse Asthma Hospital discharge follow-up Referral of patient Opioid use disorder Respiratory failure Asthma GERD (gastroesophageal reflux disease) Pancreatitis HTN (hypertension) Opioid use disorder Surgical History No significant past surgical history Family History Family History Father No problems noted. Mother No problems noted. Brother In good health Son In good health Mental health disorder Son In good health Son In good health Son In good health Other Family history non-contributory Substance use disorder Social History Social History Household Members: Spouse Housing: House Alcohol intake: never Comment: less wheezing Patient Tobacco Use Status: Former Tobacco user Tobacco use type: Cigarette Cigarettes Per Day: 7 Advance Directives: No Advance Directives Information Provided: No service: No Current occupational status: employed Cognitive needs: No Hearing needs: No Vision needs: No Physical Exam ED Vital Signs: Vital Signs - 24 hr 02/22/25 09:30 02/22/25 10:02 02/22/25 10:41 Temperature 97.3 F Pulse Rate 62 70 74 Respiratory Rate 14 18 16 Blood Pressure 99/72 116/71 Pulse Oximetry 94 96 Oxygen Delivery Method Room Air Room Air 02/22/25 10:49 02/22/25 11:08 02/22/25 12:00 Temperature Pulse Rate 79 80 72 Respiratory Rate 16 16 18 Blood Pressure 94/54 L 107/80 Pulse Oximetry 94 98 Oxygen Delivery Method Room Air Room Air 02/22/25 14:23 02/22/25 14:54 Temperature 98.2 F Pulse Rate 63 64 Respiratory Rate 19 18 Blood Pressure 96/58 L 107/62 Pulse Oximetry 98 96 Oxygen Delivery Method Room Air Room Air BMI result Body Mass Index 32.5 Const General: patient obtunded Orientation/consciousness: patient obtunded Limitations: altered mental status HENMT Head: Yes normal to inspection, No Mercer's sign and No raccoon eyes Ears: TM's normal bilaterally Mouth: Normal oral and palatal mucosa present Eyes General: appearance normal, both eyes and all related structures Pupils: Pinpoint pupils Neck Neck: Yes normal visual inspection, Yes full ROM, Yes no lymphadenopathy and Yes no meningeal signs Chest Chest palpation & inspection: normal inspection of the chest Resp Effort & Inspection: normal respiratory effort Auscultation: clear to auscultation bilaterally Cardio Rate: regular rate Rhythm: regular rhythm Peripheral pulses: Peripheral pulses 2+ throughout GI Inspection: Yes normal to inspection Palpation (GI): Soft to palpation and nontender Back/Spine/Pelvis Thoracic/Lumbar Spine: thoracic and lumbar spine normal to inspection Skin General skin exam: no rashes or lesions noted Neuro General: no meningeal signs and patient obtunded Course Course Course Narrative: 1440-patient now alert and oriented. Patient is ambulatory. His vital signs are stable. I offered for him to speak to control and recovery combat rescue but he declined this. He is accepting Narcan to go home lot and a comprehensive [facility] referral. Reviewed worrisome signs and symptoms of when to return to the emergency room. Comfortable plan for discharge home. Medications Administered Discontinued Medications Generic Name Dose Route Start Last Admin Trade Name Apoorva PRN Reason Stop Dose Admin Albuterol Sulfate 2.5 mg/ 0 mg 02/22/25 10:32 02/22/25 10:35 Albuterol/Ipratropium 3 ml INHALE 02/22/25 10:33 1 dose ONCE ONE Administration Naloxone HCl 4 mg 02/22/25 09:56 02/22/25 09:45 Naloxone Hcl Nasal 4 Mg Reading NOSTRILALT 02/22/25 09:57 4 mg ONCE ONE Administration Naloxone HCl 4 mg 02/22/25 11:52 02/22/25 14:55 Naloxone Hcl Nasal 4 Mg Reading NOSTRILALT 02/22/25 11:53 Not Given ONCE ONE Naloxone HCl 8 mg 02/22/25 14:37 02/22/25 14:55 Naloxone Hcl Nasal Take Home 4 Mg Reading NOSTRILALT 02/22/25 14:38 8 mg ONCE ONE Administration Medical Decision Making Medical Decision Making MDM Narrative: 44-year-old male with a history of asthma who presents to the ER with concern for drowsiness. Per report from EMS patient was with a friend and they were using heroin and cocaine and the friend was concerned because the patient was quite drowsy prompting him to call 911. On arrival the patient is nonresponsive with pinpoint pupils, breathing spontaneously. Patient immediately received 4 mg of intranasal Narcan. Roused post narcan after several minutes. After about 10-15 min patient started answering questions, oriented x3. Moving all extremities equally and purposely. Pupils are now 3 mm equal and reactive. He reports that he was given a bag of heroin by a friend and he sniffs this. He does have a history of polysubstance use but has been doing well on methadone. He denies any additional substance use. No SI or HI. No physical complaints. Will monitor in the emergency room. Not interested in detox resources Differential Diagnosis Differential Diagnoses: The differential diagnosis associated with the presentation includes Polysubstance use Admission/Observation Consideration of admission/observation: Escalation of care including admission/observation considered Lab Data MDM Lab Attestation statement: I reviewed the patient's lab results. Labs: Lab Results 02/22/25 02/22/25 Range/Units 09:23 11:14 POC Glucose 124 H 74 (60-115) mg/dL Independent Historian Clinical information obtained from an independent historian. History obtained from or confirmed by: EMS Critical Care Time Critical Care Time Critical Care Time: Yes Total Critical Care Time: 60 Attestation: Overdose requiring Narcan and multiple re-evals Discharge Plan Discharge Clinical Impression: Drug overdose Patient Disposition: Home, Self-Care Instructions: Adult Overdose (ED) Additional Instructions: Overdose You were seen in our Emergency Department for an overdose today. You received narcan in order to reverse the effects of overdose. Narcan only lasts about 45 min to 1 hour in the system. You may have been given narcan to take home with you today, please keep it near you if you are going to use again, so others can use it if needed.? The number one risk for fatal overdose is using alone? [facility] is a 29/01 hotline where you can be on the phone with someone while you use, and they can call for help if they suspect an overdose: [phone] Things to look out for when you leave include severe vomiting or diarrhea, headaches, muscle cramps, fever, coughing, chest pain, or if you feel so short of breath you cannot walk to the bathroom. Please seek care and return any time for worsening symptoms.? You may have been provided with safer injection?items, please take time to take care of YOU and your health. Use new supplies whenever possible to lessen the chances of infections and other illnesses.? If you need more supplies, please go [facility],? [address] [place] [address] OR you can call or text to coordinate delivery of safer supplies. If you decide you want to stop or cut down on how much you?re using, please call the numbers on the list provided to you or you can come to our outpatient Addiction Treatment office [facility] (M-F 9am-5p) [address] [place] [address], [facility] [address], [place]. [phone] Prescriptions: No Action budesonide-formoterol [Symbicort] 160-4.5 mcg/actuation HFA aerosol inhaler 2 puff inhalation BID 30 Days Qty: 10.2 6RF ipratropium-albuterol 0.5 mg-3 mg(2.5 mg base)/3 mL solution for nebulization 3 ml inhalation Q6H PRN (Reason: for wheezing) Qty: 540 1RF amoxicillin-pot clavulanate 875-125 mg tablet 1 tab PO BID Qty: 20 0RF ibuprofen 600 mg tablet 600 mg PO Q8H PRN (Reason: pain) Qty: 20 0RF tramadol 50 mg tablet 50 mg PO Q6H PRN (Reason: pain) Qty: 8 0RF prednisone 10 mg tablet 10 mg PO DIRECTED Qty: 41 0RF Rx Instructions: see taper instructions 60mg on day 1-5, 40mg on day 6, 30mg on day 7, 20mg on day 8, 10mg on day 9, 5mg on day 10 azithromycin 250 mg tablet 250 mg PO DAILY 4 Days Qty: 4 0RF Rx Instructions: start on day 2 of therapy amoxicillin-pot clavulanate 875-125 mg tablet 1 tab PO BID Qty: 14 0RF prednisone 20 mg tablet 20 mg PO DAILY Qty: 12 0RF Rx Instructions: Take 3 tablets by mouth daily for 2 days then take 2 tablets by mouth daily for 3 days. albuterol sulfate [Ventolin HFA] 90 mcg/actuation HFA aerosol inhaler 2 puff inhalation Q4-6H PRN (Reason: shortness of breath or wheezing) 30 Days Qty: 1 6RF buprenorphine-naloxone [Suboxone] 8-2 mg film 1 film sublingual BID 30 Days Qty: 60 2RF Interventions: ED Discharge Assessment Last Done: 02/22/25 14:54 Discharge Date/Time: 02/22/25 14:54 Print Language: Nauruan
[2025-02-22] MEDS: Naloxone HCl Nasal 4 MG SPRAY NOSTRILALT (09:45)
--- NOTE | 2025-02-22 10:00 | PC.NURSE ---
shortly after triage pt is unarousable even to sternal rub. pupils 2mm. RR 6 slightly diaphoretic. given nasal narcan 4mg x 1. became alert slowly, no vomiting. oriented x 3.
--- NOTE | 2025-02-22 10:03 | PC.NURSE ---
pt was never hypoxic. had been left on O2 probe after triage.
--- OUTSIDE RECORDS SUMMARY | 2025-02-22 10:12 | XMS_ITS ---
Author Name [facility] Organization Unknown Results Test Name/Text Value Interpretation Date Range Source Amphetamines Ur Ql Negative Normal 09/10/2024 - [facility] fentaNYL+Norfentanyl Ur Ql Scn Positive Abnormal 09/10/2024 - [facility] BZE Ur Ql Positive Abnormal 09/10/2024 - [facility] PCP Ur Ql Scn>25 ng/mL Negative Normal 09/10/2024 - [facility] Cannabinoids Ur Ql Scn>50 ng/mL Negative Normal 09/10/2024 - [facility] Benzodiaz Ur Ql Scn>200 ng/mL Positive Abnormal 09/10/2024 - [facility] Opiates Ur Ql Scn>300 ng/mL Positive Abnormal 09/10/2024 - [facility] POC Glucose 146.0 mg/dL Above high normal 09/10/2024 65 - 99 [facility] Magnesium SerPl-mCnc 2.0 mg/dL Normal 09/10/2024 1.6 - 2. 7 [facility] Ethanol SerPl-mCnc <11.0 mg/dL Normal 09/10/2024 - 11 [facility] GFR/BSA.pred SerPlBld XFW-PDA-OuCFgv >90.0 Normal 09/10/2024 59 - [facility] CO2 SerPl-sCnc 27.0 mmol/L Normal 09/10/2024 22 - 33 [facility] Globulin Ser Calc-mCnc 3.8 g/dL Normal 09/10/2024 1.5 - 3.9 [facility] Prot SerPl-mCnc 7.1 g/dL Normal 09/10/2024 6.3 - 8.[address] BUN/Creat SerPl 16.0 Ratio Normal 09/10/2024 10 - 25 [facility] Albumin/Glob SerPl 0.9 Ratio Below low normal 09/10/2024 1 - 3 [facility] Chloride SerPl-sCnc 104.0 mmol/L Normal 09/10/2024 98 - 1 07 [facility] Calcium SerPl-mCnc 8.5 mg/dL Below low normal 09/10/2024 8.7 - 10.5 [facility] Anion Gap Bld-sCnc 9.0 Normal 09/10/2024 7 - 17 [facility] Albumin SerPl-mCnc 3.3 g/dL Below low normal 09/10/2024 3.5 - 5 [facility] AST SerPl-cCnc 23.0 U/L Normal 09/10/2024 10 - 55 [facility] T Bilirub SerPl-mCnc 0.6 mg/dL Normal 09/10/2024 0.2 - 1 [facility] Glucose SerPl-mCnc 137.0 mg/dL Above high normal 09/10/2024 65 - 99 [facility] ALP SerPl-cCnc 83.0 U/L Normal 09/10/2024 45 - 128 [facility] T ALT SerPl-cCnc 13.0 U/L Normal 09/10/2024 10 - 55 [facility] T Potassium SerPl-sCnc 3.7 mmol/L Normal 09/10/2024 3.4 - 5 .3 [facility] Sodium SerPl-sCnc 140.0 mmol/L Normal 09/10/2024 136 - 14 5 [facility] BUN SerPl-mCnc 11.0 mg/dL Normal 09/10/2024 8 - [address] Creat SerPl-mCnc 0.7 mg/dL Normal 09/10/2024 0.5 - 1.3 [facility] Lipase SerPl-cCnc 17.0 U/L Normal 09/10/2024 13 - 60 H [facility] MCHC RBC Auto-mCnc 33.2 g/dL Normal 09/10/2024 30 - 36 [facility] MCV RBC Auto 89.0 fL Normal 09/10/2024 80 - 100 [facility] Neutrophils num Bld Auto 10.2 Thou/uL Above high normal 09/10/2024 2 - 7.5 [facility] Neutrophils/leuk NFr Bld Auto 73.1 % Normal 09/10/2024 [facility] Platelet num Bld Auto 339.0 Thou/uL Normal 09/10/2024 150 - 450 [facility] Eosinophil/leuk NFr Bld Auto 3.6 % Normal 09/10/2024 [facility] Eosinophil num Bld Auto 0.5 Thou/uL Normal 09/10/2024 0 - 0.7 [facility] Imm Granulocytes num Bld Auto 0.04 Thou/uL Normal 09/10/2024 0 - 0.1 [facility] Monocytes/leuk NFr Bld Auto 8.7 % Normal 09/10/2024 [facility] WBC num Bld Auto 14.0 Thou/uL Above high normal 09/10/2024 4 - 11 [facility] Imm Granulocytes/leuk NFr Bld Auto 0.3 % Normal 09/10/2024 [facility] Lymphocytes/leuk NFr Bld Auto 13.7 % Normal 09/10/2024 [facility] Monocytes num Bld Auto 1.22 Thou/uL Normal 09/10/2024 0.2 - 1.5 [facility] Basophils num Bld Auto 0.08 Thou/uL Normal 09/10/2024 0 - 0.2 [facility] Basophils/leuk NFr Bld Auto 0.6 % Normal 09/10/2024 [facility] PMV Bld Auto 9.3 fL Normal 09/10/2024 7.5 - 12.5 [facility] MCH RBC Qn Auto 29.5 pg Normal 09/10/2024 26 - [address] Lymphocytes num Bld Auto 1.91 Thou/uL Normal 09/10/2024 1.5 - 4.5 [facility] RBC num Bld Auto 4.0 Mil/uL Below low normal 09/10/2024 4.5 - 6.2 [facility] Hct VFr Bld Auto 35.5 % Below low normal 09/10/2024 39 - 54 [facility] RDW RBC Auto-Rto 14.3 % Normal 09/10/2024 11.5 - 14.5 [facility] Hgb Bld-mCnc 11.8 g/dL Below low normal 09/10/2024 13 - 17.7 [facility] Encounters Encounter Type Encounter Reason Primary Diagnosis Location Date Emergency Opioid abuse, uncomplicated Opioid abuse, uncomplicated [facility] 09/09/2024 Emergency medical services [facility] 09/09/2024 Emergency Other specified disorders of nose and na Other specified disorders of nose and nasal sinuses [facility] 03/07/2024 Emergency Anxiety disorder , unspecified [facility] 01/22/2022 Inpatient Severe persisten t asthma with (acute) exacerbation [facility] 10/16/2021 Emergency Unspecified asth ma with (acute) exacerbation [facility] 06/07/2021 Ambulatory Nausea with vomiting, unspecified [facility] 04/25/2021 Care Team Organization Name Specialty Phone Email Start Date End [facility], [facility] 09/25/2024 [facility] PCP Legislative Director 09/17/2024 10/17/2024 [facility] SHANDALITAH Primary Care 01/22 [facility] Primary Care 04/2501/22/2022 [facility] PCP,No Primary Care 02/04/2021 [facility] NO PCP Primary Care 02/04/2021 02/04/2021 [facility] NO PCP Primary Care 02/04/2021
--- OUTSIDE RECORDS SUMMARY | 2025-02-22 10:12 | XMS_ITS | Patient Health Record ---
Author Organization [facility] Address [address] [place] [address] Care Team Providers Care Sfdc Consultant Name Role Phone Pardeep BURGESS, [place] Primary Care Provider Unava ilable Juan Garcia Unavailable [phone] BUSTER ERICKSON Unavailable Unavailable Reason For Referral No Information Plan Of Treatment No Information Insurance Providers Payer Name Payer Address Payer Phone Subscriber Number Group Number Insured Name Patient Relationship to Insured Coverage Start Date Coverage End Date [facility] [address] [address] [place], [place] [id number] STACY PIEDRA Self - patient is the insured
--- OUTSIDE RECORDS SUMMARY | 2025-02-22 10:12 | XMS_ITS | Clinical Summary ---
Author Organization [facility] Address [address] [place] [address] Care Team Providers Care Welding Operator Name Role Phone Pcp, No Primary Care Provider Unavailabl e Allergies Active Allergy Reactions Criticality Noted Date Comments Haloperidol Unknown/Patient and Family Unable to Define Medium 01/26/2019 Causes extrapyramidal symptoms Metoclopramide Unknown/Patient and Family Unable to Define Medium 11/18/2018 Not sure of reaction Prochlorperazine Unknown/Patient and Family Unable to Define High 11/18/2018 Causes extrapyramidal symptoms Medications ipratropium-albu terol (DUONEB) 0.5-2.5 mg/3 mL nebulizer solution Take 3 mL by nebulization 4 times daily (every 6 hours) as needed for wheezing or shortness of breath. Active buprenorphine-na loxone (SUBOXONE) 8-2 mg per SL filmIndications: Asthma exacerbation,Tg daniel abuse (HCC) Place 1 Film under the tongue 2 (two) times a day. Max Daily Amount: 2 Film 1 Film 1 Active albuterol (PROVENTIL HFA; VENTOLIN HFA) 108 (90 Base) MCG/ACT inhalerIndicatio ns:Asthma exacerbation Inhale 1-2 puffs every 4 (four) hours as needed for wheezing. 1 Inhaler 1 Active naloxone (NARCAN) 4 mg/0.1 mL Liquid nasal spray device [place] 4 mg (1 nasal spray) as a single dose; may repeat every 2 to 3 minutes in alt nostrils until medical assistance is available. 0.2 mL 5 Active budesonide-formo terol (SYMBICORT) 160-4.5 MCG/ACT inhaler Inhale 2 puffs 2 (two) times a day. Active Active Problems Problem Noted Date Diagnosed [...] Information Value Date Recorded Sex Assigned at Male 09/10/2024 3:30 AM EST Legal Sex Male 9:17 PM EST Gender Identity Male 09/10/2024 3:30 AM EST Sexual Orientation Heterosexual (straight) 09/10 3:30 AM EST Last Filed Vital Signs Vital Sign Reading Time Taken Comments Blood Pressure 118/57 09/10/2024 11:51 AM EST Pulse 89 09/10/2024 11:51 AM EST Temperature 36.4 C (97.5 F) 09/10/2024 7:30 AM EST Respiratory Rate 16 09/10/2024 11:51 AM EST Oxygen Saturation 93% 09/10/2024 11:51 AM EST Inhaled Oxygen Concentration - - Weight 121 kg (266 lb) 09/09/2024 8:26 PM EST Height 175.3 cm (5' 9 ) 09/09/2024 8:26 PM EST Body Mass Index 39.28 09/09/2024 8:26 PM EST Plan of Treatment Health Maintenance Due Date Last Done Comments Hepatitis C Virus Screening 1981 HIV Screening 1994 DTaP/Tdap/Td Vaccines (1 - Tdap) 2000 Hepatitis B Vaccines (1 of - 19+ 3-dose series) 2000 HPV Vaccines (1 - 3-dose SCD M series) 2008 COVID-19 Vaccine (2023-2 5 season) 2024 Influenza Vaccine 02/06/2025 Pneumococcal Vaccine: Pediat roger (0-5 Years) and At-Risk Patients (6 to 49 Years) Aged Out No longer eligible b ased on patient's age to complete this topic Insurance [facility] Advance Directives * Full Code (Latest Code Status on File) Date Activated Date Inactivated Comments 02/04/2021 12:37 PM 09/09/2024 8:25 PM Care Teams Welding Operator Relationship Specialty Start Date End Date Pcp, [address] [place] [address] PCP - General 08/31/19
--- NOTE | 2025-02-22 10:20 | PC.NURSE ---
c/o diff breathing pt had exp wheezes and moderate air movement. provider aware.
[2025-02-22] MEDS: Albuterol Sulfate 2.5 MG, Albuterol/Iprat 2.5/0.5MG 3 ML 3 ML INHALE (10:35)
[2025-02-22 11:17] LABS: Glucose, Whole Blood 74 mg/dL (60-115)
--- NOTE | 2025-02-22 11:26 | PC.NURSE ---
late entry aprox 11a patient was unarousable to voice and light touch. pinpoint pupils. did wake with sternal rub. has remained alert since.
--- NOTE | 2025-02-22 13:50 | MHC.EDTECH ---
patient wants to have a bowel movement but doesn't want to use the commode. The nurse and I tried explaining that he can not use the public bathroom due to safety reasons
[2025-02-22] MEDS: Naloxone HCl Nasal TAKE HOME 4 MG SPRAY 8 MG NOSTRILALT (14:55)
== END 2025-02-22 14:54 | disposition home or self-care (01) ==
PROVIDERS: Emergency Provider Emergency Medicine; PCP Internal Medicine
DX: T65.91XA Toxic effect of unspecified substance, accidental (unintentional), initial encounter (principal); R40.4 Transient alteration of awareness; Y92.9 Unspecified place or not applicable; R40.0 Somnolence
CPT/HCPCS: 82947; 94640; 99284; 99285; S9485

== ENCOUNTER 2025-06-17 05:12 | Emergency (ER) | payer OTHER, SELFPAY ==
--- NOTE | ~2025-06-17 | XR_ITS ---
EXAMINATION: XR CHEST CLINICAL INFORMATION: chest pain COMPARISON: December 03, 2024 TECHNIQUE: PA view of the chest was obtained. FINDINGS: Pulmonary reticular pattern. 4 mm nodular opacity left lower hemithorax which could be related to nipple. No gross consolidation, pleural effusion or pneumothorax. Old healed rib fracture deformities in the posterior lateral aspect right hemithorax overlapping the right scapula. Mild multilevel thoracic spondylosis. XR/XR chest 1V IMPRESSION: Chronic interstitial lung disease. Nipple artifact versus pulmonary nodule, left lower hemithorax. Electronically signed by: Rafael Beavers MD 06/17/2025 07:01 AM TAM
--- NOTE | 2025-06-17 05:14 | ECG_ITS ---
Test Reason : chest pain Blood Pressure : */* mmHG Vent. Rate : 105 BPM Atrial Rate : 105 BPM P-R Int : 112 ms QRS Dur : 96 ms QT Int : 370 ms P-R-T Axes : 43 32 45 degrees QTcB Int : 489 ms Sinus tachycardia Otherwise normal ECG When compared with ECG of 01-Jun-2024 03:08, Vent. rate has increased by 46 bpm QT has lengthened Referred By: Generic ED Physician Electronically Signed By: MORGAN SALAMANCA MD
[2025-06-17 05:35] VITALS: BP 111/74; PULSE 102; RESP 20; TEMP 36.9; O2SAT 94; BMI 32.5
[2025-06-17 06:07] LABS: MANUAL DIFF FLAG NO
[2025-06-17 06:08] LABS: Hematocrit 39.0 % (42.0-52.0); Hemoglobin 12.7 g/dl (14.0-18.0); Imm Gran Abs Auto 0.05 X10*3/uL (0.00-0.03); Imm Gran Pct Auto 0.4 % (0.0-0.4); Lymphocytes Absolute Auto 1.4 X10*3/uL (1.2-4.9); Mean Corpuscular HGB Conc 32.6 g/dl (31.0-36.0); Mean Corpuscular Hemoglobin 29.1 pg (27.0-33.0); Mean Corpuscular Volume 89.2 fL (80.0-98.0); NRBC Abs Auto 0.000 X10*3/uL (0.0-0.012); NRBC Pct Auto 0.0 /100WBC (0.0-0.2); Platelet Count 308 X10*3/uL (160-400); Red Blood Count 4.37 X10*6/uL (4.60-5.80); White Blood Count 12.4 X10*3/uL (4.8-10.8)
[2025-06-17 06:25] LABS: Alanine Aminotransferase 21 U/L (0-40); Albumin Level 3.8 g/dL (3.5-5.0); Alkaline Phosphatase 84 U/L (39-117); Anion Gap 12 (12-20); Aspartate Amino Transferase 60 U/L (5-37); Blood Urea Nitrogen 16 mg/dL (9-16); Calcium 8.7 mg/dL (8.4-10.2); Carbon Dioxide 25 mmol/L (22-29); Chloride 108 mmol/L (96-108); Creatinine Clr Calc Pharmacy 129.1; Estimated Glomerular Filt Rate > 60; Potassium 3.8 mmol/L (3.3-5.1); Sodium 141 mmol/L (135-145); Total Protein 7.5 g/dL (6.5-8.0)
[2025-06-17 06:36] LABS: Troponin-I High Sensitivity < 2.7 ng/L (<3.5-35.0)
[2025-06-17 06:46] LABS: Resp Syncy Virus RNA Qual PCR NEGATIVE (Negative); SARS COV2 PCR INHOUSE NEGATIVE (Negative)
--- NOTE | 2025-06-17 08:22 | ED.URI ---
HPI - URI/Sore Throat General Chief Complaint: Upper Respiratory Symptoms Stated Complaint: CP Time Seen by Provider: 06/17/25 08:47 Source: patient Mode of arrival: ambulatory Limitations: no limitations History of Present Illness ED Provider: HPI Narrative: 44-year-old male smoker with a history of asthma presenting with wheezing for the past 1 week no fevers or chills no hemoptysis, has been using albuterol and his on ProAir, also has been reporting substernal chest pain radiating to the left side and left arm pain this has been recurrent for the past 1 week as well nonexertional. Related Data Previous Rx's ?Medication ?Instructions ?Recorded Ventolin HFA 90 mcg/actuation 2 puff inhalation Q4-6H PRN 11/23/23 aerosol inhaler (albuterol sulfate) shortness of breath or wheezing 30 days #1 ea prednisone 20 mg tablet 20 mg PO DAILY #12 tabs 12/31/23 buprenorphine 8 mg-naloxone 2 mg 1 film sublingual BID 30 days #60 03/14/24 sublingual film (Suboxone) ea amoxicillin 875 mg-potassium 1 tab PO BID #20 tabs 05/02/24 clavulanate 125 mg tablet ibuprofen 600 mg tablet 600 mg PO Q8H PRN pain #20 tabs 05/02/24 tramadol 50 mg tablet 50 mg PO Q6H PRN pain #8 tabs 05/02/24 Symbicort 160 mcg-4.5 2 puff inhalation BID 30 days 08/01/24 mcg/actuation HFA aerosol inhaler #10.2 grams (budesonide-formoterol) ipratropium 0.5 mg-albuterol 3 mg 3 ml inhalation Q6H PRN for 09/04/24 (2.5 mg base)/3 mL nebulization wheezing #540 mL soln amoxicillin 875 mg-potassium 1 tab PO BID #14 tabs 12/03/24 clavulanate 125 mg tablet azithromycin 250 mg tablet 250 mg PO DAILY 4 days #4 tabs 12/03/24 prednisone 10 mg tablet 10 mg PO DIRECTED #41 tabs 12/03/24 azithromycin 250 mg tablet See Rx Instructions PO .COMPLEX 5 06/17/25 days #6 tabs prednisone 20 mg tablet 40 mg (2 x 20 mg) PO DAILY 5 days 06/17/25 #10 tabs Allergies Allergy/AdvReac Type Severity Reaction Status Date / Time ibuprofen (From Motrin) Allergy Unknown Verified 06/17/25 05:40 Review of Systems Constitutional: Constitutional: Reports as per [facility] Past Medical History Medical History Obesity (BMI 30-39.9) Opioid use disorder Elevated blood pressure reading Morbid obesity with BMI of 40.0-44.9, adult History of opioid abuse Asthma Hospital discharge follow-up Referral of patient Opioid use disorder Respiratory failure Asthma GERD (gastroesophageal reflux disease) Pancreatitis HTN (hypertension) Opioid use disorder Surgical History No significant past surgical history Family History Family History Father No problems noted. Mother No problems noted. Brother In good health Son In good health Mental health disorder Son In good health Son In good health Son In good health Other Family history non-contributory Substance use disorder Social History Social History Household Members: Spouse Housing: House Alcohol intake: never Comment: less wheezing Patient Tobacco Use Status: Former Tobacco user Tobacco use type: Cigarette Cigarettes Per Day: 7 Advance Directives: No Advance Directives Information Provided: Yes service: No Current occupational status: employed Cognitive needs: No Hearing needs: No Vision needs: No Physical Exam Exam: Exam: ?General: ??looks age appropriate ?PERRLA, EOMI, MMM, Neck: Supple, no LAD ?CV: RRR, no obvious murmurs appreciated ?Resp: ?Expiratory wheezing throughout Abd: ?Bowel sounds are present, no tenderness no rebound no rigidity MSK: FROM, strength 5/5 all extremities, no lower extremity edema Skin: Warm, dry, intact, ?Neuro: ?Alert and oriented x3, moving upper and lower extremities symmetrically, no obvious facial asymmetry noted, cranial nerves 2-12 intact Vital Signs: Vital Signs: Last Vital Signs Temp 98.5 F 06/17/25 05:35 Pulse 80 06/17/25 09:02 Resp 16 06/17/25 09:02 BP 111/74 06/17/25 05:35 Pulse Ox 94 06/17/25 05:35 O2 Del Method Room Air 06/17/25 05:35 BMI result Body Mass Index 32.5 Course Course Course Narrative: 44-year-old male well known to this ED for history of severe uncontrolled asthma as well as substance abuse disorder who presented to triage with complaint of coughing substernal chest pain that radiates to left arm as well as feeling short of breath and no responses home inhaler he does have kids he does have sick contacts chronically has audible expiratory wheezes which were present on exam as well I did assess his respiratory status while he was getting labs in the triage area. I spoke to the charge nurse and asked her to bring him back. Patient walked out of the ED. I called him and asked him to return as I wanted to go over his symptoms given his history of severe respiratory distress. He states he is getting his children to school and he will return to the ED, I let the chart and triage nurse know his plan to return. this is a RAPID medical screening exam the rest of the history and physical exam is to be done by the main provider. 7:30 AM 06/17/2025 ([facility]): Medications Administered Discontinued Medications Generic Name Dose Route Start Last Admin Trade Name Freq PRN Reason Stop Dose Admin Albuterol Sulfate 5 mg/ 0 mg 06/17/25 09:02 06/17/25 09:04 Albuterol/Ipratropium 3 ml INHALE 06/17/25 09:03 7.5 each ONCE ONE Administration Prednisone 60 mg 06/17/25 08:53 06/17/25 09:06 Prednisone 20 Mg Tablet PO 06/17/25 08:54 60 mg ONCE ONE Administration Medical Decision Making Medical Decision Making [facility] Narrative: 9:01 AM 06/17/2025 (Dr. Devonte Wilkins): Cardiac workup has been reassuring, ECG, cardiac enzymes, chest x-ray without pneumonia pneumothorax, he does have history of asthma, interstitial lung changes on chest x-ray without consolidations, discussed smoking cessation, I did not identify any PE risk factors or physical exam findings to suspect PE we will provide nebulizer treatments, oral steroids No PE risk factors identified, using albuterol prior to presenting to the ER which would explain slight degree of tachycardia did not feel further workup such as D-dimer, CT angio is indicated at this time Differential Diagnosis Differential Diagnoses: The differential diagnosis associated with the presentation includes (CHF, COPD exacerbation, pneumonia, pneumothorax, ACS, PE,) Admission/Observation Consideration of admission/observation: Escalation of care including admission/observation considered Lab Data MDM Lab Attestation statement: I reviewed the patient's lab results. 06/17/25 05:47 06/17/25 05:47 Labs: Lab Results 06/17/25 Range/Units 05:47 WBC 12.4 H (4.8-10.8) X10*3/uL RBC 4.37 L (4.60-5.80) X10*6/uL Hgb 12.7 L (14.0-18.0) g/dl Hct 39.0 L (42.0-52.0) % MCV 89.2 (80.0-98.0) fL MCH 29.1 (27.0-33.0) pg MCHC 32.6 (31.0-36.0) g/dl RDW 13.8 (11.0-16.0) % Plt Count 308 (160-400) X10*3/uL MPV 9.0 L (9.4-12.4) fL Immature Gran % (Auto) 0.4 (0.0-0.4) % Neut % (Auto) 75.1 H (45-73) % Lymph % (Auto) 11.3 L (20-40) % [place] % (Auto) 7.2 (2-11) % Eos % (Auto) 5.3 H (0-4) % Baso % (Auto) 0.7 (0-2) % Lymph # (Auto) 1.4 (1.2-4.9) X10*3/uL [place] # (Auto) 0.9 (0.1-1.2) X10*3/uL Eos # (Auto) 0.7 H (0.0-0.4) X10*3/uL Baso # (Auto) 0.1 (0.0-0.2) X10*3/uL Abs Immat Gran (auto) 0.05 H (0.00-0.03) X10*3/uL Absolute Neuts (auto) 9.3 H (2.0-8.3) x10*3/uL Absolute Nucleated RBC 0.000 (0.0-0.012) X10*3/uL Nucleated RBC % (auto) 0.0 (0.0-0.2) /100WBC Sodium 141 (135-145) mmol/L Potassium 3.8 (3.3-5.1) mmol/L Chloride 108 (96-108) mmol/L Carbon Dioxide 25 (22-29) mmol/L Anion Gap 12 (12-20) BUN 16 (9-16) mg/dL Creatinine 0.94 (0.5-1.4) mg/dL Estim Creat Clear Calc 129.1 Estimated GFR > 60 Random Glucose 121 H (60-115) mg/dL Calcium 8.7 (8.4-10.2) mg/dL Total Bilirubin 0.2 (0.0-1.0) mg/dL AST 60 H (5-37) U/L ALT 21 (0-40) U/L Alkaline Phosphatase 84 (39-117) U/L Troponin I High Sens < 2.7 (<3.5-35.0) ng/L Total Protein 7.5 (6.5-8.0) g/dL Albumin 3.8 (3.5-5.0) g/dL Influenza Type A (PCR) NEGATIVE (Negative) Influenza Type B (PCR) NEGATIVE (Negative) RSV RNA Qual (PCR) NEGATIVE (Negative) SARS-CoV-2 RNA (RT-PCR) NEGATIVE (Negative) Independent Interpretation I performed an independent interpretation of an: EKG (105 beats per minute otherwise normal ECG without dysrhythmia, AV antonio blocks or ST-T changes to suspect underlying ACS, my independent interpretation) and Plain X-Ray (My independent chest xray interpretation: Lungs: Lungs are clear bilaterally without evidence of focal consolidation, pleural effusion, or pneumothorax. Cardiac silhouette is unremarkable, no obvious mediastinal widening, no obvious bony abnormalities such as fractures. Impression: Normal chest X-r) Radiology Impression Discussion of test interpretation with radiology: I have reviewed the radiologist's reading. Prescription Management I considered prescription management with: Antibiotic Chronic Conditions Patient?s care impacted by: Other (Asthma) Discharge Plan Discharge Clinical Impression: Asthma exacerbation Qualifiers: Asthma severity: severe Asthma persistence: persistent Qualified Code(s): J45.51 - Severe persistent asthma with (acute) exacerbation Instructions: Asthma (ED) Additional Instructions: Smoking cessation Steroids starting tomorrow Z-Lyndon as you are smoker to help with inflammation but also potential underlying infection Some chest x-ray findings he will need to follow up with the PCP for monitoring there is a small lung nodules that has been present on prior CAT scan but typically this is something that mentioned to the patient's and make sure they follow up with the PCP Prescriptions: New prednisone 20 mg tablet 40 mg PO DAILY 5 Days Qty: 10 0RF azithromycin 250 mg tablet See Rx Instructions PO .COMPLEX 5 Days Qty: 6 0RF Rx Instructions: For 250 mg dose pack: take 500 mg today (day 1), then 250 mg for 4 days (days 2-5) No Action budesonide-formoterol [Symbicort] 160-4.5 mcg/actuation HFA aerosol inhaler 2 puff inhalation BID 30 Days Qty: 10.2 6RF ipratropium-albuterol 0.5 mg-3 mg(2.5 mg base)/3 mL solution for nebulization 3 ml inhalation Q6H PRN (Reason: for wheezing) Qty: 540 1RF amoxicillin-pot clavulanate 875-125 mg tablet 1 tab PO BID Qty: 20 0RF ibuprofen 600 mg tablet 600 mg PO Q8H PRN (Reason: pain) Qty: 20 0RF tramadol 50 mg tablet 50 mg PO Q6H PRN (Reason: pain) Qty: 8 0RF prednisone 10 mg tablet 10 mg PO DIRECTED Qty: 41 0RF Rx Instructions: see taper instructions 60mg on day 1-5, 40mg on day 6, 30mg on day 7, 20mg on day 8, 10mg on day 9, 5mg on day 10 azithromycin 250 mg tablet 250 mg PO DAILY 4 Days Qty: 4 0RF Rx Instructions: start on day 2 of therapy amoxicillin-pot clavulanate 875-125 mg tablet 1 tab PO BID Qty: 14 0RF prednisone 20 mg tablet 20 mg PO DAILY Qty: 12 0RF Rx Instructions: Take 3 tablets by mouth daily for 2 days then take 2 tablets by mouth daily for 3 days. albuterol sulfate [Ventolin HFA] 90 mcg/actuation HFA aerosol inhaler 2 puff inhalation Q4-6H PRN (Reason: shortness of breath or wheezing) 30 Days Qty: 1 6RF buprenorphine-naloxone [Suboxone] 8-2 mg film 1 film sublingual BID 30 Days Qty: 60 2RF Print Language: Romansh
[2025-06-17 09:02] VITALS: PULSE 80; RESP 16; O2SAT 96
[2025-06-17] MEDS: Albuterol Sulfate 5 MG, Albuterol/Iprat 2.5/0.5MG 3 ML 3 ML INHALE (09:04)
[2025-06-17 09:29] VITALS: BP 128/67; PULSE 80; RESP 16; TEMP 36.8; O2SAT 98
== END 2025-06-17 09:30 | disposition home or self-care (01) ==
PROVIDERS: Emergency Provider Emergency Medicine
DX: J45.51 Severe persistent asthma with (acute) exacerbation (principal); Z03.818 Encounter for observation for suspected exposure to other biological agents ruled out; I10 Essential (primary) hypertension; Z79.899 Other long term (current) drug therapy
CPT/HCPCS: 71045; 80053; 84484; 85025; 87637; 93005; 94640; 99284

== ENCOUNTER → 2025-06-17 05:14 | Outpatient (BNV) | payer OTHER, SELFPAY | PROVIDERS: Emergency Provider Emergency Medicine; Visit Provider Internal Medicine Cardiovascular Disease | DX: R00.1 Bradycardia, unspecified (principal) | CPT/HCPCS: 93010 ==

== ENCOUNTER → 2025-06-17 05:40 | Outpatient (BNV) | payer OTHER, SELFPAY | PROVIDERS: Visit Provider Radiology Diagnostic Radiology | DX: J84.9 Interstitial pulmonary disease, unspecified (principal) | CPT/HCPCS: 71045 ==